=== PATIENT | female | born 1945 | race Caucasian/White ===

== ENCOUNTER 2020-04-10 21:33 | Inpatient (IN) ==
[2020-04-10] MEDS ORDERED: ONDANSETRON 4 MG/2 ML VIAL IV ONE (22:03)
[2020-04-10] MEDS ORDERED: ACETAMINOPHEN 500 MG TABLET PO STA (22:03)
[2020-04-10 22:20] LABS: Hematocrit 38.7 VOL% (35.7-47.0); Hemoglobin 12.5 GM/DL (12.0-16.0); Immature Granulocytes % 0.6 %; Immature Granulocytes Absolute 0.02 #; Lymphocytes # 0.5 10*3/uL (1.4-4.0); Lymphocytes % 16.1 % (21.3-54.2); Mean Corpuscular HGB Conc 32.3 GM/DL (32-36); Mean Corpuscular Volume 90.4 FL (87-102); Mean Platelet Volume 9.9 FL (9.6-12.0); Monocytes % 6.5 % (1.7-12.7); Neutrophils % 76.8 % (38.7-73.9); Platelet Count 153 T/CUMM (130-400); Red Blood Count 4.28 MC/CUMM (3.8-5.5); White Blood Count 3.4 T/CUMM (4-12)
[2020-04-10 22:38] LABS: ABG Base Excess 2.8 MMOL/L (-2.5-2.5); ABG HCO3 26.5 MMOL/L (20-26); ABG Oxygen Saturation 98.4 % (95-100); ABG PCO2 37.5 MM HG (35-48); ABG PH 7.467 (7.35-7.45); ABG PO2 129.8 MM HG (80-95); ABG TCO2 27.6 MMOL/L (23-27); Allen Test Positive
[2020-04-10 22:39] LABS: Albumin 3.6 G/DL (3.4-5.0); Bilirubin,Total 0.4 MG/DL (0.2-1.0); Calcium 8.5 MG/DL (8.5-10.1); Ferritin 285.6 ng/ml (8-252); Total Protein 7.1 G/DL (6.4-8.3)
[2020-04-10 23:57] LABS: Bilirubin,Urine Negative (Negative); Blood, Urine Moderate mg/dL (Negative); Glucose,Urine (UA) Negative (Negative); Hyaline Casts,Urine 4 /LPF (0-3); Ketones,Urine 5 mg/dL (Negative); Mucus,Urine Occasional /LPF (Occasional); Nitrite,Urine Negative (Negative); Protein,Urine 30 MG/DL; RBC,Urine 4 /HPF (0-4); Squamous Epithelial Cell,Urine Occasional /HPF (0-10); Urine Appearance CLEAR (Clear); Urine Color Yellow (Yellow); Urine Specific Gravity 1.023 (1.001-1.035); Urine Urobilinogen < 2.0 EU/DL (0.2-1.0); WBC,Urine 1 /HPF (0-6)
[2020-04-11] MEDS ORDERED: NICOTINE 21 MG/24 HR PATCH TRANSDERM PRN (00:37)
[2020-04-11] MEDS ORDERED: DEXTROSE 50% 25 GM/50 ML VIAL IV PRN (00:37)
[2020-04-11] MEDS ORDERED: CALCIUM CARBONATE CHEW 500 MG TABLET PO PRN (00:37)
[2020-04-11] MEDS ORDERED: GLUCAGON 1 MG VIAL IM PRN (00:37)
[2020-04-11] MEDS ORDERED: ALUMINUM/MAGNES/SIMETH MAX STR 30 ML UDCUP PO PRN (00:37)
[2020-04-11] MEDS ORDERED: hydrALAZINE 20 MG/1 ML VIAL IV PRN (00:37)
[2020-04-11] MEDS ORDERED: diphenhydrAMINE CAP 25 MG CAPSULE PO PRN (00:37)
[2020-04-11] MEDS ORDERED: guaiFENesin/DM ER 600-30 MG TABLET PO PRN (00:37)
[2020-04-11] MEDS ORDERED: DOCUSATE SODIUM 100 MG CAPSULE PO PRN (00:37)
[2020-04-11] MEDS ORDERED: SIMETHICONE CHEW 125 MG TABLET PO PRN (00:37)
[2020-04-11] MEDS ORDERED: AZITHROMYCIN INJ 500 MG in SODIUM CHLORIDE 0.9% 250 ML IV SCH (01:00)
[2020-04-11] MEDS: cefTRIAXone 1,000 MG in SYRINGE 1 EACH IV SCH (01:59)
[2020-04-11] MEDS: SODIUM CHLOR 0.9% KCL 40 MEQ 40 MEQ/1,000 ML BAG IV SCH ×2 (02:44→23:06)
[2020-04-11 04:06] LABS: Hematocrit 36.8 VOL% (35.7-47.0); Hemoglobin 11.8 GM/DL (12.0-16.0); Immature Granulocytes % 0.6 %; Immature Granulocytes Absolute 0.02 #; Lymphocytes # 0.9 10*3/uL (1.4-4.0); Lymphocytes % 28.4 % (21.3-54.2); Mean Corpuscular HGB Conc 32.1 GM/DL (32-36); Mean Corpuscular Volume 91.3 FL (87-102); Monocytes % 7.7 % (1.7-12.7); Neutrophils % 63.3 % (38.7-73.9); Platelet Count 144 T/CUMM (130-400); Red Blood Count 4.03 MC/CUMM (3.8-5.5); White Blood Count 3.1 T/CUMM (4-12)
[2020-04-11 04:34] LABS: Osmolality,Calculated 274.7 MOS/KG (273-304)
[2020-04-11] MEDS ORDERED: ALBUTEROL INHALER 18 GM INH PRN (05:11)
[2020-04-11] MEDS: ENOXAPARIN 40 MG/0.4 ML SYRINGE SUBCUT SCH (09:09)
[2020-04-11] MEDS: PANTOPRAZOLE 40 MG TABLET PO SCH (09:09)
[2020-04-11] MEDS: AZITHROMYCIN 250 MG TABLET PO SCH (09:09)
[2020-04-11] MEDS: ASPIRIN EC 81 MG TABLET PO SCH (09:09)
[2020-04-11] MEDS: ALBUTEROL INHALER 18 GM INH SCH ×5 (09:25→23:07)
[2020-04-11] MEDS: LISINOPRIL/HCTZ 20-12.5 MG TABLET PO SCH (09:25)
[2020-04-11] MEDS: ONDANSETRON 4 MG/2 ML VIAL IV PRN ×2 (09:53→18:38)
[2020-04-11] MEDS: traMADol 50 MG TABLET PO SCH ×2 (10:58→20:10)
[2020-04-11] MEDS: guaiFENesin/CODEINE 5 ML LIQUID PO PRN ×2 (12:02→20:16)
[2020-04-11] MEDS: ACETAMINOPHEN 325 MG TABLET PO PRN (20:10)
[2020-04-11] MEDS: SERTRALINE 100 MG TABLET PO SCH (20:10)
[2020-04-11] MEDS: clonazePAM 0.5 MG TABLET PO SCH (20:10)
[2020-04-11] MEDS: GABAPENTIN 300 MG CAPSULE PO SCH (20:10)
[2020-04-11] MEDS: ATORVASTATIN 20 MG TABLET PO SCH (23:06)
[2020-04-12] MEDS: cefTRIAXone 1,000 MG in SYRINGE 1 EACH IV SCH (02:04)
[2020-04-12] MEDS: ALBUTEROL INHALER 18 GM INH SCH ×6 (03:10→23:13)
[2020-04-12] MEDS: ACETAMINOPHEN 325 MG TABLET PO PRN (07:46)
[2020-04-12] MEDS: traMADol 50 MG TABLET PO SCH ×2 (08:32→20:55)
[2020-04-12] MEDS: AZITHROMYCIN 250 MG TABLET PO SCH (08:32)
[2020-04-12] MEDS: PANTOPRAZOLE 40 MG TABLET PO SCH (08:33)
[2020-04-12] MEDS: ENOXAPARIN 40 MG/0.4 ML SYRINGE SUBCUT SCH (08:33)
[2020-04-12] MEDS: LISINOPRIL/HCTZ 20-12.5 MG TABLET PO SCH (08:33)
[2020-04-12] MEDS: ASPIRIN EC 81 MG TABLET PO SCH (08:33)
[2020-04-12] MEDS: ONDANSETRON 4 MG/2 ML VIAL IV PRN (09:20)
[2020-04-12] MEDS: SODIUM CHLOR 0.9% KCL 40 MEQ 40 MEQ/1,000 ML BAG IV SCH (12:15)
[2020-04-12] MEDS: guaiFENesin/CODEINE 5 ML LIQUID PO PRN (16:57)
[2020-04-12] MEDS ORDERED: REMDESIVIR 200 MG in SODIUM CHLORIDE 0.9% 210 ML IV ONE (17:00)
[2020-04-12] MEDS: clonazePAM 0.5 MG TABLET PO SCH (20:54)
[2020-04-12] MEDS: ATORVASTATIN 20 MG TABLET PO SCH (20:54)
[2020-04-12] MEDS: GABAPENTIN 300 MG CAPSULE PO SCH (20:55)
[2020-04-12] MEDS: SERTRALINE 100 MG TABLET PO SCH (20:55)
[2020-04-13] MEDS: MORPHINE 4 MG/1 ML VIAL IV PRN ×3 (01:31→20:35)
[2020-04-13] MEDS: ALBUTEROL INHALER 18 GM INH SCH ×5 (02:14→20:02)
[2020-04-13] MEDS: ACETAMINOPHEN 325 MG TABLET PO PRN (04:34)
[2020-04-13] MEDS: SODIUM CHLOR 0.9% KCL 40 MEQ 40 MEQ/1,000 ML BAG IV SCH ×2 (05:35→20:02)
[2020-04-13 06:30] LABS: Hemoglobin 10.6 GM/DL (12.0-16.0); Immature Granulocytes % 0.5 %; Immature Granulocytes Absolute 0.02 #; Lymphocytes # 0.6 10*3/uL (1.4-4.0); Lymphocytes % 12.8 % (21.3-54.2); Mean Corpuscular HGB Conc 32.1 GM/DL (32-36); Mean Corpuscular Volume 90.7 FL (87-102); Mean Platelet Volume 9.8 FL (9.6-12.0); Monocytes % 6.2 % (1.7-12.7); Neutrophils % 80.5 % (38.7-73.9); Platelet Count 142 T/CUMM (130-400); Red Blood Count 3.64 MC/CUMM (3.8-5.5); Red Cell Distribution Width 14.3 % (9.3-17.3); White Blood Count 4.4 T/CUMM (4-12)
[2020-04-13 07:06] LABS: Calcium 8.1 MG/DL (8.5-10.1); Osmolality,Calculated 274.5 MOS/KG (273-304)
[2020-04-13] MEDS: AZITHROMYCIN 250 MG TABLET PO SCH (09:17)
[2020-04-13] MEDS: traMADol 50 MG TABLET PO SCH ×2 (09:17→22:33)
[2020-04-13] MEDS: LISINOPRIL/HCTZ 20-12.5 MG TABLET PO SCH (09:17)
[2020-04-13] MEDS: ASPIRIN EC 81 MG TABLET PO SCH (09:18)
[2020-04-13] MEDS: cefTRIAXone 1,000 MG in SYRINGE 1 EACH IV SCH (09:18)
[2020-04-13] MEDS: guaiFENesin/CODEINE 5 ML LIQUID PO PRN (09:19)
[2020-04-13] MEDS: ENOXAPARIN 30 MG/0.3 ML SYRINGE SUBCUT SCH ×2 (09:21→22:33)
[2020-04-13] MEDS: ONDANSETRON 4 MG/2 ML VIAL IV PRN (09:21)
[2020-04-13] MEDS: DEXAMETHASONE 4 MG/1 ML VIAL IV SCH (10:03)
[2020-04-13] MEDS: ZINC SULFATE 220 MG CAPSULE PO SCH (12:52)
[2020-04-13] MEDS: PROMETHAZINE 25 MG/1 ML VIAL IM PRN ×2 (13:06→20:25)
[2020-04-13] MEDS: REMDESIVIR 100 MG in SODIUM CHLORIDE 0.9% 230 ML IV SCH (17:58)
[2020-04-13] MEDS ORDERED: CLORAZEPATE 3.75 MG TABLET PO PRN (21:33)
[2020-04-13] MEDS: ATORVASTATIN 20 MG TABLET PO SCH (22:32)
[2020-04-13] MEDS: clonazePAM 0.5 MG TABLET PO SCH (22:32)
[2020-04-13] MEDS: GABAPENTIN 300 MG CAPSULE PO SCH (22:33)
[2020-04-13] MEDS: SERTRALINE 100 MG TABLET PO SCH (22:33)
[2020-04-14] MEDS ORDERED: ETOMIDATE 20 MG/10 ML VIAL IV ONE ×2 (01:40→02:28)
[2020-04-14] MEDS ORDERED: ROCURONIUM 100 MG/10 ML VIAL IV ONE ×2 (01:42→02:29)
[2020-04-14] MEDS ORDERED: EPINEPHrine 1 MG/ML VIAL ONE (02:44)
[2020-04-14] MEDS ORDERED: LIDOCAINE 1%/EPI INJ 20 ML VIAL ONE (02:45)
[2020-04-14] MEDS ORDERED: MORPHINE 4 MG/1 ML VIAL IV ONE (03:28)
[2020-04-14] MEDS: MIDAZOLAM 100 MG in SODIUM CHLORIDE 0.9% 80 ML IV PRN (03:28)
[2020-04-14] MEDS ORDERED: SODIUM CHLORIDE 0.9% 1,000 ML IV ONE (03:32)
[2020-04-14] MEDS ORDERED: NOREPINEPHRINE 4 MG/4 ML VIAL IV ONE (03:33)
[2020-04-14] MEDS: NOREPINEPHRINE 8 MG in SODIUM CHLORIDE 0.9% 242 ML IV PRN ×3 (03:38→20:56)
[2020-04-14] MEDS: ALBUTEROL INHALER 18 GM INH SCH ×2 (04:01→16:57)
[2020-04-14 04:16] LABS: ABG Base Excess -3.6 MMOL/L (-2.5-2.5); ABG HCO3 21.3 MMOL/L (20-26); ABG Oxygen Saturation 93.3 % (95-100); ABG PH 7.293 (7.35-7.45)
[2020-04-14 04:34] LABS: Basophils % 0.1 % (0.0-0.8); Hematocrit 35.4 VOL% (35.7-47.0); Hemoglobin 10.9 GM/DL (12.0-16.0); Immature Granulocytes % 1.3 %; Immature Granulocytes Absolute 0.22 #; Lymphocytes # 1.3 10*3/uL (1.4-4.0); Lymphocytes % 7.5 % (21.3-54.2); Mean Corpuscular HGB Conc 30.8 GM/DL (32-36); Mean Corpuscular Volume 94.9 FL (87-102); Mean Platelet Volume 9.8 FL (9.6-12.0); Monocytes % 4.7 % (1.7-12.7); Neutrophils % 86.4 % (38.7-73.9); Red Blood Count 3.73 MC/CUMM (3.8-5.5); Red Cell Distribution Width 14.4 % (9.3-17.3)
[2020-04-14 04:57] LABS: Platelet Count 294 T/CUMM (130-400); White Blood Count 17.3 T/CUMM (4-12)
[2020-04-14 05:12] LABS: INR 1.1; PT Patient Result 11.9 SECS (9.8-11.9)
[2020-04-14 05:24] LABS: Osmolality,Calculated 281.3 MOS/KG (273-304)
[2020-04-14 05:46] LABS: Ferritin 388.5 ng/ml (8-252)
[2020-04-14 05:54] LABS: Troponin I 0.197 NG/ML (0.00-0.045)
[2020-04-14] MEDS ORDERED: DOCUSATE SODIUM 100 MG/10 ML UDCUP NG PRN (07:30)
[2020-04-14] MEDS: SODIUM CHLOR 0.9% KCL 40 MEQ 40 MEQ/1,000 ML BAG IV SCH ×2 (07:44→23:27)
[2020-04-14] MEDS: cefTRIAXone 1,000 MG in SYRINGE 1 EACH IV SCH (08:16)
[2020-04-14] MEDS: DEXAMETHASONE 4 MG/1 ML VIAL IV SCH (08:17)
[2020-04-14] MEDS: ENOXAPARIN 30 MG/0.3 ML SYRINGE SUBCUT SCH ×2 (08:18→12:01)
[2020-04-14] MEDS: CHOLECALCIFEROL 5,000 UNIT TABLET PO SCH (08:19)
[2020-04-14] MEDS: traMADol 50 MG TABLET PO SCH (08:19)
[2020-04-14] MEDS: ASPIRIN CHEW 81 MG TABLET PO SCH (08:19)
[2020-04-14] MEDS: LISINOPRIL/HCTZ 20-12.5 MG TABLET PO SCH (08:19)
[2020-04-14] MEDS: ZINC SULFATE 220 MG CAPSULE PO SCH (08:19)
[2020-04-14] MEDS: AZITHROMYCIN 250 MG TABLET PO SCH (08:19)
[2020-04-14] MEDS: INSULIN REGULAR 100 UNIT/ML SUBCUT SCH ×2 (11:49→17:37)
[2020-04-14] MEDS: ACETAMINOPHEN 325 MG TABLET PO PRN (11:53)
[2020-04-14] MEDS: REMDESIVIR 100 MG in SODIUM CHLORIDE 0.9% 230 ML IV SCH (17:57)
[2020-04-14] MEDS: GABAPENTIN 300 MG CAPSULE PO SCH (20:28)
[2020-04-14] MEDS: ATORVASTATIN 20 MG TABLET PO SCH (20:28)
[2020-04-14] MEDS: PANTOPRAZOLE 40 MG VIAL IV SCH (20:29)
[2020-04-14] MEDS: SERTRALINE 100 MG TABLET PO SCH (20:29)
[2020-04-15] MEDS: INSULIN REGULAR 100 UNIT/ML SUBCUT SCH ×4 (00:05→17:43)
[2020-04-15] MEDS: ENOXAPARIN 30 MG/0.3 ML SYRINGE SUBCUT SCH ×2 (00:06→11:54)
[2020-04-15 03:39] LABS: Allen Test Positive; Pt O2 Delivery Device Ventilator
[2020-04-15 03:40] LABS: ABG Base Excess -2.3 MMOL/L (-2.5-2.5); ABG HCO3 22.5 MMOL/L (20-26); ABG Oxygen Saturation 99.5 % (95-100); ABG PCO2 40.8 MM HG (35-48); ABG PH 7.359 (7.35-7.45); ABG TCO2 20.9 MMOL/L (23-27)
[2020-04-15 05:14] LABS: Basophils % 0.2 % (0.0-0.8); Hematocrit 31.4 VOL% (35.7-47.0); Hemoglobin 9.9 GM/DL (12.0-16.0); Immature Granulocytes % 1.1 %; Immature Granulocytes Absolute 0.14 #; Lymphocytes # 0.7 10*3/uL (1.4-4.0); Lymphocytes % 5.7 % (21.3-54.2); Mean Corpuscular HGB Conc 31.5 GM/DL (32-36); Mean Corpuscular Volume 94.3 FL (87-102); Mean Platelet Volume 9.9 FL (9.6-12.0); Monocytes % 4.9 % (1.7-12.7); Neutrophils % 88.1 % (38.7-73.9); Platelet Count 270 T/CUMM (130-400); Red Blood Count 3.33 MC/CUMM (3.8-5.5); Red Cell Distribution Width 14.7 % (9.3-17.3)
[2020-04-15 05:28] LABS: INR 1.1; PT Patient Result 11.9 SECS (9.8-11.9)
[2020-04-15 06:10] LABS: Bilirubin,Total 0.44 MG/DL (0.2-1.0); Calcium 8.3 MG/DL (8.5-10.1)
[2020-04-15 06:11] LABS: Albumin 2.4 G/DL (3.4-5.0)
[2020-04-15 06:13] LABS: Osmolality,Calculated 289.1 MOS/KG (273-304)
[2020-04-15 06:16] LABS: Ferritin 388.1 ng/ml (8-252)
[2020-04-15 06:17] LABS: Troponin I 0.054 NG/ML (0.00-0.045)
[2020-04-15] MEDS: DEXAMETHASONE 4 MG/1 ML VIAL IV SCH (08:10)
[2020-04-15] MEDS: ZINC SULFATE 220 MG CAPSULE PO SCH (08:11)
[2020-04-15] MEDS: CHOLECALCIFEROL 5,000 UNIT TABLET PO SCH (08:11)
[2020-04-15] MEDS: AZITHROMYCIN 250 MG TABLET PO SCH (08:11)
[2020-04-15] MEDS: PANTOPRAZOLE 40 MG VIAL IV SCH ×2 (08:11→20:56)
[2020-04-15] MEDS: cefTRIAXone 1,000 MG in SYRINGE 1 EACH IV SCH (08:11)
[2020-04-15] MEDS: ASPIRIN CHEW 81 MG TABLET PO SCH (08:11)
[2020-04-15] MEDS: SODIUM CHLOR 0.9% KCL 40 MEQ 40 MEQ/1,000 ML BAG IV SCH (10:31)
[2020-04-15] MEDS: NOREPINEPHRINE 8 MG in SODIUM CHLORIDE 0.9% 242 ML IV PRN (11:11)
[2020-04-15] MEDS: ACETAMINOPHEN 325 MG TABLET PO PRN (11:55)
[2020-04-15] MEDS: REMDESIVIR 100 MG in SODIUM CHLORIDE 0.9% 230 ML IV SCH (17:52)
[2020-04-15] MEDS: MIDAZOLAM 100 MG in SODIUM CHLORIDE 0.9% 80 ML IV PRN (19:11)
[2020-04-15] MEDS: GABAPENTIN 300 MG CAPSULE PO SCH (20:53)
[2020-04-15] MEDS: ATORVASTATIN 20 MG TABLET PO SCH (20:53)
[2020-04-15] MEDS: SERTRALINE 100 MG TABLET PO SCH (21:45)
[2020-04-16] MEDS: INSULIN REGULAR 100 UNIT/ML SUBCUT SCH ×4 (00:20→18:20)
[2020-04-16] MEDS: ENOXAPARIN 30 MG/0.3 ML SYRINGE SUBCUT SCH ×2 (00:25→13:34)
[2020-04-16 04:37] LABS: ABG Base Excess 2.6 MMOL/L (-2.5-2.5); ABG HCO3 26.8 MMOL/L (20-26); ABG Oxygen Saturation 97.8 % (95-100); ABG PCO2 39.8 MM HG (35-48); ABG PH 7.446 (7.35-7.45); ABG PO2 106.4 MM HG (80-95)
[2020-04-16 05:15] LABS: Alanine Aminotransferase 15 U/L (13-56); Albumin 2.1 G/DL (3.4-5.0); Alkaline Phosphatase 77 U/L (45-117); Aspartate Amino Transferase 27 U/L (0-37); Blood Urea Nitrogen 17 MG/DL (7-18); Calcium 8.3 MG/DL (8.5-10.1); Estimated Glom Filtration Rate 111 ML/MIN; Ferritin 405.7 ng/ml (8-252); Glucose 161 MG/DL (74-106); Total Protein 5.6 G/DL (6.4-8.3); Troponin I < 0.015 NG/ML (0.00-0.045)
[2020-04-16] MEDS ORDERED: FUROSEMIDE 40 MG/4 ML VIAL IV ONE (08:45)
[2020-04-16 10:09] LABS: Basophils % 0.1 % (0.0-0.8); Hematocrit 28.4 VOL% (35.7-47.0); Hemoglobin 8.9 GM/DL (12.0-16.0); Immature Granulocytes Absolute 0.32 #; Lymphocytes # 0.7 10*3/uL (1.4-4.0); Lymphocytes % 4.4 % (21.3-54.2); Mean Corpuscular HGB Conc 31.3 GM/DL (32-36); Mean Corpuscular Volume 91.9 FL (87-102); Mean Platelet Volume 10.2 FL (9.6-12.0); Monocytes % 5.2 % (1.7-12.7); Neutrophils % 88.3 % (38.7-73.9); Platelet Count 300 T/CUMM (130-400); Red Blood Count 3.09 MC/CUMM (3.8-5.5); Red Cell Distribution Width 14.8 % (9.3-17.3); White Blood Count 15.9 T/CUMM (4-12)
[2020-04-16 10:33] LABS: INR 1.1; PT Patient Result 11.4 SECS (9.8-11.9)
[2020-04-16] MEDS: PANTOPRAZOLE 40 MG VIAL IV SCH ×2 (10:39→21:37)
[2020-04-16] MEDS: ASPIRIN CHEW 81 MG TABLET PO SCH (10:39)
[2020-04-16] MEDS: cefTRIAXone 1,000 MG in SYRINGE 1 EACH IV SCH (10:39)
[2020-04-16] MEDS: DEXAMETHASONE 4 MG/1 ML VIAL IV SCH (10:39)
[2020-04-16] MEDS: CHOLECALCIFEROL 5,000 UNIT TABLET PO SCH (10:40)
[2020-04-16] MEDS: ZINC SULFATE 220 MG CAPSULE PO SCH (10:40)
[2020-04-16 10:46] LABS: Hypochromasia 1+; Lymphocytes 5 % (20-55); Segmented Neutrophils 92 % (50-85); Total Cells Counted 100
[2020-04-16 10:47] LABS: Microcytosis 1+; Platelet Estimate Normal
[2020-04-16] MEDS ORDERED: SODIUM PHOSPHATE INJ 30 MMOL in SODIUM CHLORIDE 0.9% 250 ML IV ONE (15:51)
[2020-04-16] MEDS: REMDESIVIR 100 MG in SODIUM CHLORIDE 0.9% 230 ML IV SCH (18:39)
[2020-04-16] MEDS: SERTRALINE 100 MG TABLET PO SCH (21:37)
[2020-04-16] MEDS: ATORVASTATIN 20 MG TABLET PO SCH (21:37)
[2020-04-16] MEDS: GABAPENTIN 300 MG CAPSULE PO SCH (21:37)
[2020-04-16] MEDS: NOREPINEPHRINE 8 MG in SODIUM CHLORIDE 0.9% 242 ML IV PRN (21:40)
[2020-04-17] MEDS: ENOXAPARIN 30 MG/0.3 ML SYRINGE SUBCUT SCH ×2 (01:56→12:50)
[2020-04-17] MEDS: INSULIN REGULAR 100 UNIT/ML SUBCUT SCH ×5 (01:56→23:42)
[2020-04-17 03:55] LABS: Basophils % 0.1 % (0.0-0.8); Hematocrit 27.5 VOL% (35.7-47.0); Hemoglobin 8.6 GM/DL (12.0-16.0); Immature Granulocytes % 1.3 %; Immature Granulocytes Absolute 0.17 #; Lymphocytes # 0.5 10*3/uL (1.4-4.0); Mean Corpuscular HGB Conc 31.3 GM/DL (32-36); Mean Corpuscular Volume 92.9 FL (87-102); Mean Platelet Volume 10.2 FL (9.6-12.0); Monocytes % 5.2 % (1.7-12.7); Neutrophils % 89.4 % (38.7-73.9); Platelet Count 307 T/CUMM (130-400); Red Blood Count 2.96 MC/CUMM (3.8-5.5); Red Cell Distribution Width 14.7 % (9.3-17.3); White Blood Count 13.4 T/CUMM (4-12)
[2020-04-17 04:15] LABS: INR 1.1; PT Patient Result 11.3 SECS (9.8-11.9)
[2020-04-17 04:23] LABS: Alanine Aminotransferase 19 U/L (13-56); Albumin 2.1 G/DL (3.4-5.0); Alkaline Phosphatase 87 U/L (45-117); Aspartate Amino Transferase 29 U/L (0-37); Blood Urea Nitrogen 23 MG/DL (7-18); Calcium 8.1 MG/DL (8.5-10.1); Estimated Glom Filtration Rate 111 ML/MIN; Ferritin 468.6 ng/ml (8-252); Glucose 150 MG/DL (74-106); Osmolality,Calculated 292.8 MOS/KG (273-304); Total Protein 5.5 G/DL (6.4-8.3); Troponin I < 0.015 NG/ML (0.00-0.045)
[2020-04-17 04:28] LABS: ABG HCO3 30.8 MMOL/L (20-26); ABG Oxygen Saturation 99.4 % (95-100); ABG PCO2 43.7 MM HG (35-48); ABG PH 7.467 (7.35-7.45); ABG TCO2 28.1 MMOL/L (23-27); Allen Test Positive; Pt O2 Delivery Device Ventilator
[2020-04-17 05:05] LABS: Sedimentation Rate-Westergren 79 MM/HR (0-30)
[2020-04-17 06:37] LABS: Anisocytosis 1+; Band Neutrophils 1 % (0-10); Hypochromasia 2+; Lymphocytes 4 % (20-55); Macrocytosis 1+; Nucleated Red Blood Cells 1 (0-5); Platelet Estimate Normal; Segmented Neutrophils 92 % (50-85); Total Cells Counted 100
[2020-04-17] MEDS: ASPIRIN CHEW 81 MG TABLET PO SCH (10:05)
[2020-04-17] MEDS: CHOLECALCIFEROL 5,000 UNIT TABLET PO SCH (10:05)
[2020-04-17] MEDS: PANTOPRAZOLE 40 MG VIAL IV SCH ×2 (10:05→20:40)
[2020-04-17] MEDS: DEXAMETHASONE 4 MG/1 ML VIAL IV SCH (10:05)
[2020-04-17] MEDS: ZINC SULFATE 220 MG CAPSULE PO SCH (10:05)
[2020-04-17] MEDS: GABAPENTIN 300 MG CAPSULE PO SCH (20:40)
[2020-04-17] MEDS: ATORVASTATIN 20 MG TABLET PO SCH (20:40)
[2020-04-17] MEDS: SERTRALINE 100 MG TABLET PO SCH (20:40)
[2020-04-18] MEDS: ENOXAPARIN 30 MG/0.3 ML SYRINGE SUBCUT SCH ×2 (00:06→12:25)
[2020-04-18 04:53] LABS: Hematocrit 26.1 VOL% (35.7-47.0); Hemoglobin 8.3 GM/DL (12.0-16.0); Immature Granulocytes % 2.5 %; Immature Granulocytes Absolute 0.25 #; Lymphocytes # 0.6 10*3/uL (1.4-4.0); Lymphocytes % 5.4 % (21.3-54.2); Mean Corpuscular HGB Conc 31.8 GM/DL (32-36); Mean Corpuscular Volume 91.9 FL (87-102); Mean Platelet Volume 10.2 FL (9.6-12.0); Monocytes % 6.2 % (1.7-12.7); NRBC # 0.02 10*3/uL; Neutrophils % 85.9 % (38.7-73.9); Platelet Count 277 T/CUMM (130-400); Red Blood Count 2.84 MC/CUMM (3.8-5.5); Red Cell Distribution Width 14.6 % (9.3-17.3); White Blood Count 10.2 T/CUMM (4-12)
[2020-04-18 05:15] LABS: ABG Base Excess 6.8 MMOL/L (-2.5-2.5); ABG HCO3 30.6 MMOL/L (20-26); ABG Oxygen Saturation 96.8 % (95-100); ABG PCO2 43.5 MM HG (35-48); ABG PH 7.465 (7.35-7.45); ABG PO2 80.7 MM HG (80-95); Allen Test Positive; Pt O2 Delivery Device Ventilator
[2020-04-18 05:33] LABS: Alanine Aminotransferase 15 U/L (13-56); Albumin 2.1 G/DL (3.4-5.0); Alkaline Phosphatase 82 U/L (45-117); Aspartate Amino Transferase 27 U/L (0-37); Blood Urea Nitrogen 30 MG/DL (7-18); Calcium 8.1 MG/DL (8.5-10.1); Estimated Glom Filtration Rate 100 ML/MIN; Ferritin 460.7 ng/ml (8-252); Glucose 140 MG/DL (74-106); Osmolality,Calculated 295.7 MOS/KG (273-304); Total Protein 4.9 G/DL (6.4-8.3); Troponin I < 0.015 NG/ML (0.00-0.045)
[2020-04-18 05:48] LABS: INR 1.1; PT Patient Result 11.4 SECS (9.8-11.9)
[2020-04-18] MEDS: INSULIN REGULAR 100 UNIT/ML SUBCUT SCH ×4 (05:49→23:45)
[2020-04-18 06:24] LABS: Sedimentation Rate-Westergren 60 MM/HR (0-30)
[2020-04-18] MEDS: CHOLECALCIFEROL 5,000 UNIT TABLET PO SCH (08:57)
[2020-04-18] MEDS: PANTOPRAZOLE 40 MG VIAL IV SCH ×2 (08:57→21:00)
[2020-04-18] MEDS: DEXAMETHASONE 4 MG/1 ML VIAL IV SCH (08:57)
[2020-04-18] MEDS: ZINC SULFATE 220 MG CAPSULE PO SCH (08:58)
[2020-04-18] MEDS: ASPIRIN CHEW 81 MG TABLET PO SCH (08:58)
[2020-04-18] MEDS: SERTRALINE 100 MG TABLET PO SCH (21:00)
[2020-04-18] MEDS: GABAPENTIN 300 MG CAPSULE PO SCH (21:00)
[2020-04-18] MEDS: ATORVASTATIN 20 MG TABLET PO SCH (21:00)
[2020-04-19] MEDS: ENOXAPARIN 30 MG/0.3 ML SYRINGE SUBCUT SCH ×3 (00:41→23:54)
[2020-04-19 04:13] LABS: Basophils % 0.1 % (0.0-0.8); Eosinophils % 0.4 % (0.00-10.9); Hemoglobin 8.1 GM/DL (12.0-16.0); Immature Granulocytes % 5.2 %; Immature Granulocytes Absolute 0.53 #; Lymphocytes # 0.7 10*3/uL (1.4-4.0); Lymphocytes % 6.6 % (21.3-54.2); Mean Corpuscular HGB Conc 31.2 GM/DL (32-36); Mean Corpuscular Volume 94.2 FL (87-102); Mean Platelet Volume 9.9 FL (9.6-12.0); Monocytes % 5.7 % (1.7-12.7); NRBC # 0.02 10*3/uL; Platelet Count 263 T/CUMM (130-400); Red Blood Count 2.76 MC/CUMM (3.8-5.5); Red Cell Distribution Width 14.7 % (9.3-17.3); White Blood Count 10.1 T/CUMM (4-12)
[2020-04-19 04:32] LABS: INR 1.1; PT Patient Result 11.3 SECS (9.8-11.9)
[2020-04-19 04:35] LABS: Hypochromasia 1+; Lymphocytes 5 % (20-55); Microcytosis Slight; Ovalocytes Slight; Platelet Estimate Adequate; Segmented Neutrophils 88 % (50-85); Total Cells Counted 100
[2020-04-19 04:37] LABS: Alanine Aminotransferase 16 U/L (13-56); Albumin 1.9 G/DL (3.4-5.0); Alkaline Phosphatase 77 U/L (45-117); Aspartate Amino Transferase 19 U/L (0-37); Blood Urea Nitrogen 27 MG/DL (7-18); Estimated Glom Filtration Rate 111 ML/MIN; Ferritin 430.3 ng/ml (8-252); Glucose 123 MG/DL (74-106); Osmolality,Calculated 293.7 MOS/KG (273-304); Total Protein 5.1 G/DL (6.4-8.3); Troponin I < 0.015 NG/ML (0.00-0.045)
[2020-04-19 05:03] LABS: ABG Base Excess 7.1 MMOL/L (-2.5-2.5); ABG HCO3 30.9 MMOL/L (20-26); ABG PCO2 43.1 MM HG (35-48); ABG PH 7.472 (7.35-7.45); ABG PO2 75.4 MM HG (80-95); ABG TCO2 29.2 MMOL/L (23-27); Allen Test Positive; Pt O2 Delivery Device Ventilator
[2020-04-19] MEDS: INSULIN REGULAR 100 UNIT/ML SUBCUT SCH ×4 (05:03→23:54)
[2020-04-19 05:26] LABS: Sedimentation Rate-Westergren 57 MM/HR (0-30)
[2020-04-19] MEDS: MIDAZOLAM 100 MG in SODIUM CHLORIDE 0.9% 80 ML IV PRN ×2 (05:45→05:59)
[2020-04-19] MEDS: ASPIRIN CHEW 81 MG TABLET PO SCH (08:22)
[2020-04-19] MEDS: CHOLECALCIFEROL 5,000 UNIT TABLET PO SCH (08:22)
[2020-04-19] MEDS: DEXAMETHASONE 4 MG/1 ML VIAL IV SCH (08:22)
[2020-04-19] MEDS: ZINC SULFATE 220 MG CAPSULE PO SCH (08:22)
[2020-04-19] MEDS: PANTOPRAZOLE 40 MG VIAL IV SCH ×2 (08:22→20:15)
[2020-04-19] MEDS: ACETAMINOPHEN 325 MG TABLET PO PRN (09:54)
[2020-04-19] MEDS ORDERED: LORazepam 2 MG/1 ML VIAL IV ONE (11:29)
[2020-04-19] MEDS ORDERED: LORazepam 2 MG/1 ML VIAL ONE (11:32)
[2020-04-19] MEDS ORDERED: DIGOXIN 0.5 MG/2 ML AMP IV ONE ×2 (12:00→13:00)
[2020-04-19] MEDS ORDERED: clonazePAM 0.5 MG TABLET PO PRN (14:25)
[2020-04-19] MEDS: GABAPENTIN 300 MG CAPSULE PO SCH (20:15)
[2020-04-19] MEDS: ATORVASTATIN 20 MG TABLET PO SCH (20:15)
[2020-04-19] MEDS: SERTRALINE 100 MG TABLET PO SCH (20:15)
[2020-04-20 03:42] LABS: Basophils % 0.1 % (0.0-0.8); Eosinophils # 0.1 10*3/uL (0.0-0.87); Eosinophils % 0.7 % (0.00-10.9); Hematocrit 25.2 VOL% (35.7-47.0); Hemoglobin 7.8 GM/DL (12.0-16.0); Immature Granulocytes Absolute 0.73 #; Lymphocytes # 0.4 10*3/uL (1.4-4.0); Lymphocytes % 3.5 % (21.3-54.2); Mean Corpuscular Volume 95.5 FL (87-102); Mean Platelet Volume 10.4 FL (9.6-12.0); Monocytes % 5.2 % (1.7-12.7); NRBC # 0.02 10*3/uL; Neutrophils % 84.5 % (38.7-73.9); Platelet Count 253 T/CUMM (130-400); Red Blood Count 2.64 MC/CUMM (3.8-5.5); Red Cell Distribution Width 14.7 % (9.3-17.3); White Blood Count 12.2 T/CUMM (4-12)
[2020-04-20 04:07] LABS: INR 1.1; PT Patient Result 11.3 SECS (9.8-11.9)
[2020-04-20 04:09] LABS: Alanine Aminotransferase 17 U/L (13-56); Albumin 1.8 G/DL (3.4-5.0); Alkaline Phosphatase 85 U/L (45-117); Aspartate Amino Transferase 19 U/L (0-37); Blood Urea Nitrogen 28 MG/DL (7-18); Calcium 8.1 MG/DL (8.5-10.1); Estimated Glom Filtration Rate 110 ML/MIN; Ferritin 518.7 ng/ml (8-252); Glucose 133 MG/DL (74-106); Osmolality,Calculated 299.4 MOS/KG (273-304); Total Protein 5.2 G/DL (6.4-8.3); Troponin I < 0.015 NG/ML (0.00-0.045)
[2020-04-20 04:24] LABS: ABG Base Excess 6.1 MMOL/L (-2.5-2.5); ABG HCO3 30.1 MMOL/L (20-26); ABG Oxygen Saturation 94.2 % (95-100); ABG PCO2 41.5 MM HG (35-48); ABG PH 7.479 (7.35-7.45); ABG TCO2 31.4 MMOL/L (23-27); Allen Test Positive; Pt O2 Delivery Device Ventilator
[2020-04-20 04:57] LABS: Band Neutrophils 4 % (0-10); Hypochromasia 1+; Lymphocytes 3 % (20-55); Microcytosis Slight; Platelet Estimate Adequate; Segmented Neutrophils 88 % (50-85); Total Cells Counted 100
[2020-04-20] MEDS: INSULIN REGULAR 100 UNIT/ML SUBCUT SCH ×3 (05:06→18:02)
[2020-04-20 05:13] LABS: Sedimentation Rate-Westergren 83 MM/HR (0-30)
[2020-04-20] MEDS: DEXAMETHASONE 4 MG/1 ML VIAL IV SCH (08:12)
[2020-04-20] MEDS: PANTOPRAZOLE 40 MG VIAL IV SCH ×2 (08:12→20:20)
[2020-04-20] MEDS: ASPIRIN CHEW 81 MG TABLET PO SCH (08:12)
[2020-04-20] MEDS: ZINC SULFATE 220 MG CAPSULE PO SCH (08:12)
[2020-04-20] MEDS: CHOLECALCIFEROL 5,000 UNIT TABLET PO SCH (08:12)
[2020-04-20] MEDS: POTASSIUM CHLORIDE 20 MEQ/15 ML UDCUP PER TUBE PRN ×3 (09:00→18:02)
[2020-04-20] MEDS: ACETAMINOPHEN 325 MG TABLET PO PRN (09:30)
[2020-04-20] MEDS ORDERED: DIGOXIN 0.25 MG TABLET PO ONE (10:37)
[2020-04-20] MEDS: PIPERACILLIN/TAZOBACTAM 3,375 MG in SODIUM CHLORIDE 0.9% 100 ML IV SCH ×2 (10:52→18:20)
[2020-04-20] MEDS: ENOXAPARIN 30 MG/0.3 ML SYRINGE SUBCUT SCH (12:12)
[2020-04-20] MEDS: ATORVASTATIN 20 MG TABLET PO SCH (20:20)
[2020-04-20] MEDS: GABAPENTIN 300 MG CAPSULE PO SCH (20:20)
[2020-04-20] MEDS: SERTRALINE 100 MG TABLET PO SCH (20:20)
[2020-04-21] MEDS: INSULIN REGULAR 100 UNIT/ML SUBCUT SCH ×4 (00:48→17:59)
[2020-04-21] MEDS: ENOXAPARIN 30 MG/0.3 ML SYRINGE SUBCUT SCH ×2 (00:49→11:58)
[2020-04-21] MEDS: PIPERACILLIN/TAZOBACTAM 3,375 MG in SODIUM CHLORIDE 0.9% 100 ML IV SCH ×3 (00:49→17:58)
[2020-04-21 02:57] LABS: ABG Base Excess 6.3 MMOL/L (-2.5-2.5); ABG HCO3 30.2 MMOL/L (20-26); ABG Oxygen Saturation 98.7 % (95-100); ABG PCO2 45.6 MM HG (35-48); ABG PH 7.442 (7.35-7.45); Allen Test Positive; Pt O2 Delivery Device Ventilator
[2020-04-21 04:54] LABS: Basophils % 0.1 % (0.0-0.8); Eosinophils # 0.1 10*3/uL (0.0-0.87); Eosinophils % 0.4 % (0.00-10.9); Hematocrit 25.6 VOL% (35.7-47.0); Hemoglobin 7.9 GM/DL (12.0-16.0); Immature Granulocytes % 5.5 %; Immature Granulocytes Absolute 0.75 #; Lymphocytes # 0.5 10*3/uL (1.4-4.0); Lymphocytes % 3.9 % (21.3-54.2); Mean Corpuscular HGB Conc 30.9 GM/DL (32-36); Mean Corpuscular Volume 94.5 FL (87-102); Mean Platelet Volume 10.4 FL (9.6-12.0); Neutrophils % 85.1 % (38.7-73.9); Platelet Count 308 T/CUMM (130-400); Red Blood Count 2.71 MC/CUMM (3.8-5.5); Red Cell Distribution Width 14.8 % (9.3-17.3); White Blood Count 13.6 T/CUMM (4-12)
[2020-04-21 05:04] LABS: PT Patient Result 11.1 SECS (9.8-11.9)
[2020-04-21 05:16] LABS: Alanine Aminotransferase 23 U/L (13-56); Albumin 1.7 G/DL (3.4-5.0); Alkaline Phosphatase 78 U/L (45-117); Aspartate Amino Transferase 19 U/L (0-37); Blood Urea Nitrogen 26 MG/DL (7-18); Calcium 8.3 MG/DL (8.5-10.1); Estimated Glom Filtration Rate 111 ML/MIN; Ferritin 576.6 ng/ml (8-252); Glucose 124 MG/DL (74-106); Osmolality,Calculated 284.4 MOS/KG (273-304); Total Protein 5.6 G/DL (6.4-8.3); Troponin I < 0.015 NG/ML (0.00-0.045)
[2020-04-21 05:18] LABS: Band Neutrophils 1 % (0-10); Lymphocytes 2 % (20-55); Nucleated Red Blood Cells 1 (0-5); Platelet Estimate Adequate; Segmented Neutrophils 94 % (50-85); Total Cells Counted 100
[2020-04-21 05:19] LABS: Hypochromasia 2+; Microcytosis Slight
[2020-04-21 06:51] LABS: Sedimentation Rate-Westergren 108 MM/HR (0-30)
[2020-04-21] MEDS: PANTOPRAZOLE 40 MG VIAL IV SCH ×2 (08:03→20:50)
[2020-04-21] MEDS: CHOLECALCIFEROL 5,000 UNIT TABLET PO SCH (08:05)
[2020-04-21] MEDS: DEXAMETHASONE 4 MG/1 ML VIAL IV SCH (08:05)
[2020-04-21] MEDS: ZINC SULFATE 220 MG CAPSULE PO SCH (08:05)
[2020-04-21] MEDS: ASPIRIN CHEW 81 MG TABLET PO SCH (08:05)
[2020-04-21] MEDS: ACETAMINOPHEN 325 MG TABLET PO PRN (12:00)
[2020-04-21] MEDS ORDERED: SODIUM CHLORIDE 0.9% 1,000 ML IV PRN (12:36)
[2020-04-21] MEDS: DIGOXIN 0.25 MG TABLET PO SCH (13:41)
[2020-04-21 15:40] LABS: Bilirubin,Urine Negative (Negative); Blood, Urine Small mg/dL (Negative); Calcium Oxalate Crystals,Urine Occasional /HPF (Few); Glucose,Urine (UA) Negative (Negative); Ketones,Urine Negative (Negative); Mucus,Urine Occasional /LPF (Occasional); Nitrite,Urine Negative (Negative); Protein,Urine 30 MG/DL; RBC,Urine 7 /HPF (0-4); Urine Appearance Slightly Hazy (Clear); Urine Color Yellow (Yellow); Urine Specific Gravity 1.025 (1.001-1.035); Urine Urobilinogen < 2.0 EU/DL (0.2-1.0); WBC,Urine 2 /HPF (0-6)
[2020-04-21] MEDS: GABAPENTIN 300 MG CAPSULE PO SCH (20:50)
[2020-04-21] MEDS: ATORVASTATIN 20 MG TABLET PO SCH (20:50)
[2020-04-21] MEDS: SERTRALINE 100 MG TABLET PO SCH (20:55)
[2020-04-22] MEDS: INSULIN REGULAR 100 UNIT/ML SUBCUT SCH ×4 (00:04→18:15)
[2020-04-22] MEDS: ENOXAPARIN 30 MG/0.3 ML SYRINGE SUBCUT SCH ×2 (00:20→12:25)
[2020-04-22] MEDS: PIPERACILLIN/TAZOBACTAM 3,375 MG in SODIUM CHLORIDE 0.9% 100 ML IV SCH ×3 (02:22→18:15)
[2020-04-22 04:48] LABS: Basophils % 0.2 % (0.0-0.8); Eosinophils % 0.1 % (0.00-10.9); Hematocrit 31.1 VOL% (35.7-47.0); Hemoglobin 10.3 GM/DL (12.0-16.0); Immature Granulocytes % 2.8 %; Immature Granulocytes Absolute 0.34 #; Lymphocytes # 0.6 10*3/uL (1.4-4.0); Lymphocytes % 4.8 % (21.3-54.2); Mean Corpuscular HGB Conc 33.1 GM/DL (32-36); Mean Corpuscular Volume 89.1 FL (87-102); Mean Platelet Volume 10.5 FL (9.6-12.0); Monocytes % 5.4 % (1.7-12.7); Neutrophils % 86.7 % (38.7-73.9); Platelet Count 254 T/CUMM (130-400); Red Blood Count 3.49 MC/CUMM (3.8-5.5); Red Cell Distribution Width 15.5 % (9.3-17.3)
[2020-04-22 04:58] LABS: ABG Base Excess 4.8 MMOL/L (-2.5-2.5); ABG HCO3 28.7 MMOL/L (20-26); ABG Oxygen Saturation 97.6 % (95-100); ABG PCO2 42.6 MM HG (35-48); ABG PH 7.447 (7.35-7.45); ABG PO2 90.1 MM HG (80-95); ABG TCO2 25.3 MMOL/L (23-27); Allen Test Positive; Pt O2 Delivery Device Ventilator
[2020-04-22 05:03] LABS: Alanine Aminotransferase 29 U/L (13-56); Albumin 1.6 G/DL (3.4-5.0); Alkaline Phosphatase 85 U/L (45-117); Aspartate Amino Transferase 24 U/L (0-37); Blood Urea Nitrogen 20 MG/DL (7-18); Estimated Glom Filtration Rate 127 ML/MIN; Ferritin 681.6 ng/ml (8-252); Glucose 118 MG/DL (74-106); Osmolality,Calculated 280.5 MOS/KG (273-304); Total Protein 5.3 G/DL (6.4-8.3); Troponin I < 0.015 NG/ML (0.00-0.045)
[2020-04-22 05:05] LABS: INR 1.1; PT Patient Result 11.3 SECS (9.8-11.9)
[2020-04-22 05:15] LABS: Band Neutrophils 2 % (0-10); Lymphocytes 7 % (20-55); Microcytosis 1+; Platelet Estimate Adequate; Segmented Neutrophils 83 % (50-85); Total Cells Counted 100
[2020-04-22 07:17] LABS: Sedimentation Rate-Westergren 60 MM/HR (0-30)
[2020-04-22] MEDS: PANTOPRAZOLE 40 MG VIAL IV SCH ×2 (09:06→21:15)
[2020-04-22] MEDS: ASPIRIN CHEW 81 MG TABLET PO SCH (09:07)
[2020-04-22] MEDS: CHOLECALCIFEROL 5,000 UNIT TABLET PO SCH (09:07)
[2020-04-22] MEDS: DEXAMETHASONE 4 MG/1 ML VIAL IV SCH (09:07)
[2020-04-22] MEDS: ZINC SULFATE 220 MG CAPSULE PO SCH (09:07)
[2020-04-22] MEDS: DIGOXIN 0.25 MG TABLET PO SCH (12:25)
[2020-04-22] MEDS: GABAPENTIN 300 MG CAPSULE PO SCH (21:15)
[2020-04-22] MEDS: ATORVASTATIN 20 MG TABLET PO SCH (21:15)
[2020-04-22] MEDS: SERTRALINE 100 MG TABLET PO SCH (21:15)
[2020-04-23] MEDS: INSULIN REGULAR 100 UNIT/ML SUBCUT SCH ×4 (00:32→18:35)
[2020-04-23] MEDS: ENOXAPARIN 30 MG/0.3 ML SYRINGE SUBCUT SCH ×2 (01:10→12:45)
[2020-04-23] MEDS: PIPERACILLIN/TAZOBACTAM 3,375 MG in SODIUM CHLORIDE 0.9% 100 ML IV SCH ×3 (01:20→18:45)
[2020-04-23 04:26] LABS: Basophils % 0.1 % (0.0-0.8); Eosinophils % 0.3 % (0.00-10.9); Hematocrit 31.4 VOL% (35.7-47.0); Hemoglobin 9.8 GM/DL (12.0-16.0); Immature Granulocytes % 4.2 %; Immature Granulocytes Absolute 0.57 #; Lymphocytes % 7.4 % (21.3-54.2); Mean Corpuscular HGB Conc 31.2 GM/DL (32-36); Mean Corpuscular Volume 91.5 FL (87-102); Mean Platelet Volume 10.2 FL (9.6-12.0); Monocytes % 5.9 % (1.7-12.7); Neutrophils % 82.1 % (38.7-73.9); Platelet Count 267 T/CUMM (130-400); Red Blood Count 3.43 MC/CUMM (3.8-5.5); Red Cell Distribution Width 15.1 % (9.3-17.3); White Blood Count 13.7 T/CUMM (4-12)
[2020-04-23 04:50] LABS: ABG Base Excess 4.4 MMOL/L (-2.5-2.5); ABG HCO3 28.4 MMOL/L (20-26); ABG Oxygen Saturation 97.5 % (95-100); ABG PCO2 39.8 MM HG (35-48); ABG PH 7.463 (7.35-7.45); ABG PO2 89.2 MM HG (80-95); ABG TCO2 25.8 MMOL/L (23-27); Allen Test Positive; Pt O2 Delivery Device Ventilator
[2020-04-23 04:54] LABS: Lymphocytes 9 % (20-55); Segmented Neutrophils 85 % (50-85); Total Cells Counted 100
[2020-04-23 04:55] LABS: Hypochromasia 1+; Microcytosis 1+; Platelet Estimate Adequate
[2020-04-23 04:59] LABS: Alanine Aminotransferase 33 U/L (13-56); Albumin 1.6 G/DL (3.4-5.0); Alkaline Phosphatase 74 U/L (45-117); Aspartate Amino Transferase 27 U/L (0-37); Blood Urea Nitrogen 15 MG/DL (7-18); Estimated Glom Filtration Rate 110 ML/MIN; Ferritin 729.9 ng/ml (8-252); Glucose 91 MG/DL (74-106); Osmolality,Calculated 275.7 MOS/KG (273-304); Troponin I < 0.015 NG/ML (0.00-0.045)
[2020-04-23 05:04] LABS: PT Patient Result 10.9 SECS (9.8-11.9)
[2020-04-23 05:32] LABS: Sedimentation Rate-Westergren 52 MM/HR (0-30)
[2020-04-23] MEDS ORDERED: POTASSIUM CHLORIDE 20 MEQ TABLET PO ONE (07:29)
[2020-04-23] MEDS: ASPIRIN CHEW 81 MG TABLET PO SCH (10:00)
[2020-04-23] MEDS: DEXAMETHASONE 4 MG/1 ML VIAL IV SCH (10:00)
[2020-04-23] MEDS: CHOLECALCIFEROL 5,000 UNIT TABLET PO SCH (10:00)
[2020-04-23] MEDS: ZINC SULFATE 220 MG CAPSULE PO SCH (10:00)
[2020-04-23] MEDS: PANTOPRAZOLE 40 MG VIAL IV SCH ×2 (10:08→20:10)
[2020-04-23] MEDS: DIGOXIN 0.25 MG TABLET PO SCH (12:30)
[2020-04-23] MEDS: ZINC OXIDE PASTE 113 GM TUBE TOP SCH (20:10)
[2020-04-23] MEDS: SERTRALINE 100 MG TABLET PO SCH (20:10)
[2020-04-23] MEDS: ATORVASTATIN 20 MG TABLET PO SCH (20:10)
[2020-04-23] MEDS: GABAPENTIN 300 MG CAPSULE PO SCH (20:10)
[2020-04-23] MEDS: MIDAZOLAM 100 MG in SODIUM CHLORIDE 0.9% 80 ML IV PRN (23:00)
[2020-04-24] MEDS: ENOXAPARIN 30 MG/0.3 ML SYRINGE SUBCUT SCH ×2 (00:12→13:00)
[2020-04-24] MEDS: PIPERACILLIN/TAZOBACTAM 3,375 MG in SODIUM CHLORIDE 0.9% 100 ML IV SCH ×3 (03:51→18:42)
[2020-04-24 04:52] LABS: Basophils % 0.1 % (0.0-0.8); Eosinophils # 0.1 10*3/uL (0.0-0.87); Eosinophils % 0.4 % (0.00-10.9); Hematocrit 30.6 VOL% (35.7-47.0); Hemoglobin 9.7 GM/DL (12.0-16.0); Immature Granulocytes % 2.9 %; Lymphocytes % 7.4 % (21.3-54.2); Mean Corpuscular HGB Conc 31.7 GM/DL (32-36); Mean Corpuscular Volume 91.3 FL (87-102); Monocytes % 4.8 % (1.7-12.7); Neutrophils % 84.4 % (38.7-73.9); Platelet Count 275 T/CUMM (130-400); Red Blood Count 3.35 MC/CUMM (3.8-5.5); White Blood Count 13.9 T/CUMM (4-12)
[2020-04-24 04:55] LABS: ABG HCO3 27.9 MMOL/L (20-26); ABG Oxygen Saturation 95.7 % (95-100); ABG PCO2 38.8 MM HG (35-48); ABG PH 7.465 (7.35-7.45); ABG TCO2 24.7 MMOL/L (23-27); Allen Test Positive; Pt O2 Delivery Device Ventilator
[2020-04-24 05:09] LABS: Calcium 8.2 MG/DL (8.5-10.1); Osmolality,Calculated 282.3 MOS/KG (273-304)
[2020-04-24] MEDS: INSULIN REGULAR 100 UNIT/ML SUBCUT SCH ×4 (06:00→17:42)
[2020-04-24] MEDS: PANTOPRAZOLE 40 MG VIAL IV SCH ×2 (08:28→21:27)
[2020-04-24] MEDS: ASPIRIN CHEW 81 MG TABLET PO SCH (08:29)
[2020-04-24] MEDS: POTASSIUM CHLORIDE 20 MEQ/15 ML UDCUP PER TUBE PRN ×2 (08:29→16:30)
[2020-04-24] MEDS: DEXAMETHASONE 4 MG/1 ML VIAL IV SCH (08:29)
[2020-04-24] MEDS: ZINC SULFATE 220 MG CAPSULE PO SCH (08:29)
[2020-04-24] MEDS: ZINC OXIDE PASTE 113 GM TUBE TOP SCH ×2 (08:29→21:10)
[2020-04-24] MEDS: CHOLECALCIFEROL 5,000 UNIT TABLET PO SCH (08:29)
[2020-04-24] MEDS: MIDAZOLAM 100 MG in SODIUM CHLORIDE 0.9% 80 ML IV PRN (11:29)
[2020-04-24 11:44] LABS: ABG Base Excess 1.2 MMOL/L (-2.5-2.5); ABG HCO3 25.4 MMOL/L (20-26); ABG Oxygen Saturation 98.3 % (95-100); ABG PCO2 38.9 MM HG (35-48); ABG PH 7.424 (7.35-7.45); ABG TCO2 23.2 MMOL/L (23-27); Pt O2 Delivery Device Ventilator
[2020-04-24] MEDS ORDERED: FLUCONAZOLE INJ 400 MG in PREMIX 1 EACH IV SCH (12:00)
[2020-04-24] MEDS: LEVOFLOXACIN INJ 750 MG in PREMIX 1 EACH IV SCH (12:14)
[2020-04-24] MEDS: DIGOXIN 0.25 MG TABLET PO SCH (13:30)
[2020-04-24] MEDS: FLUCONAZOLE INJ 400 MG in PREMIX 1 EACH IV SCH (15:16)
[2020-04-24] MEDS: ATORVASTATIN 20 MG TABLET PO SCH (21:10)
[2020-04-24] MEDS: SERTRALINE 100 MG TABLET PO SCH (21:10)
[2020-04-24] MEDS: GABAPENTIN 300 MG CAPSULE PO SCH (21:10)
[2020-04-25] MEDS: INSULIN REGULAR 100 UNIT/ML SUBCUT SCH ×4 (00:59→18:09)
[2020-04-25] MEDS: ENOXAPARIN 30 MG/0.3 ML SYRINGE SUBCUT SCH ×2 (00:59→12:39)
[2020-04-25] MEDS: PIPERACILLIN/TAZOBACTAM 3,375 MG in SODIUM CHLORIDE 0.9% 100 ML IV SCH ×3 (02:30→17:20)
[2020-04-25 04:02] LABS: ABG Base Excess 2.7 MMOL/L (-2.5-2.5); ABG HCO3 26.4 MMOL/L (20-26); ABG Oxygen Saturation 98.2 % (95-100); ABG PCO2 37.5 MM HG (35-48); ABG PH 7.466 (7.35-7.45); ABG PO2 119.8 MM HG (80-95); ABG TCO2 27.6 MMOL/L (23-27); Allen Test Positive; Pt O2 Delivery Device Ventilator
[2020-04-25 04:31] LABS: Basophils % 0.1 % (0.0-0.8); Eosinophils % 0.1 % (0.00-10.9); Hematocrit 30.2 VOL% (35.7-47.0); Hemoglobin 9.6 GM/DL (12.0-16.0); Immature Granulocytes % 2.8 %; Immature Granulocytes Absolute 0.39 #; Lymphocytes # 0.8 10*3/uL (1.4-4.0); Lymphocytes % 5.7 % (21.3-54.2); Mean Corpuscular HGB Conc 31.8 GM/DL (32-36); Mean Corpuscular Volume 91.8 FL (87-102); Mean Platelet Volume 10.2 FL (9.6-12.0); Monocytes % 4.5 % (1.7-12.7); Neutrophils % 86.8 % (38.7-73.9); Platelet Count 283 T/CUMM (130-400); Red Blood Count 3.29 MC/CUMM (3.8-5.5); Red Cell Distribution Width 14.8 % (9.3-17.3); White Blood Count 13.7 T/CUMM (4-12)
[2020-04-25] MEDS: MIDAZOLAM 100 MG in SODIUM CHLORIDE 0.9% 80 ML IV PRN (04:55)
[2020-04-25 06:28] LABS: Bilirubin,Total 0.5 MG/DL (0.2-1.0); Calcium 8.2 MG/DL (8.5-10.1); Total Protein 5.1 G/DL (6.4-8.3)
[2020-04-25 06:29] LABS: Albumin 1.6 G/DL (3.4-5.0); Osmolality,Calculated 276.7 MOS/KG (273-304)
[2020-04-25 06:30] LABS: Ferritin 794.4 ng/ml (8-252)
[2020-04-25 06:48] LABS: Sedimentation Rate-Westergren 76 MM/HR (0-30)
[2020-04-25] MEDS: CHOLECALCIFEROL 5,000 UNIT TABLET PO SCH (08:01)
[2020-04-25] MEDS: ASPIRIN CHEW 81 MG TABLET PO SCH (08:01)
[2020-04-25] MEDS: PANTOPRAZOLE 40 MG VIAL IV SCH ×2 (08:01→21:30)
[2020-04-25] MEDS: ZINC OXIDE PASTE 113 GM TUBE TOP SCH ×2 (08:01→21:15)
[2020-04-25] MEDS: ZINC SULFATE 220 MG CAPSULE PO SCH (08:01)
[2020-04-25] MEDS: DEXAMETHASONE 4 MG/1 ML VIAL IV SCH (08:01)
[2020-04-25] MEDS: LEVOFLOXACIN INJ 750 MG in PREMIX 1 EACH IV SCH (12:41)
[2020-04-25] MEDS: FLUCONAZOLE INJ 400 MG in PREMIX 1 EACH IV SCH (15:14)
[2020-04-25] MEDS: ATORVASTATIN 20 MG TABLET PO SCH (21:30)
[2020-04-25] MEDS: GABAPENTIN 300 MG CAPSULE PO SCH (21:30)
[2020-04-25] MEDS: SERTRALINE 100 MG TABLET PO SCH (21:31)
[2020-04-26] MEDS: INSULIN REGULAR 100 UNIT/ML SUBCUT SCH ×4 (01:35→17:38)
[2020-04-26] MEDS: ENOXAPARIN 30 MG/0.3 ML SYRINGE SUBCUT SCH ×2 (01:35→11:26)
[2020-04-26] MEDS: PIPERACILLIN/TAZOBACTAM 3,375 MG in SODIUM CHLORIDE 0.9% 100 ML IV SCH ×3 (02:02→17:50)
[2020-04-26] MEDS: MIDAZOLAM 100 MG in SODIUM CHLORIDE 0.9% 80 ML IV PRN (03:16)
[2020-04-26 04:19] LABS: Basophils % 0.2 % (0.0-0.8); Eosinophils % 0.1 % (0.00-10.9); Immature Granulocytes % 2.5 %; Immature Granulocytes Absolute 0.32 #; Lymphocytes # 0.8 10*3/uL (1.4-4.0); Mean Corpuscular HGB Conc 32.3 GM/DL (32-36); Mean Corpuscular Volume 89.3 FL (87-102); Mean Platelet Volume 10.2 FL (9.6-12.0); Monocytes % 5.3 % (1.7-12.7); Neutrophils % 85.9 % (38.7-73.9); Platelet Count 346 T/CUMM (130-400); Red Blood Count 3.47 MC/CUMM (3.8-5.5); White Blood Count 12.7 T/CUMM (4-12)
[2020-04-26 04:32] LABS: ABG Base Excess 3.5 MMOL/L (-2.5-2.5); ABG HCO3 26.8 MMOL/L (20-26); ABG Oxygen Saturation 97.6 % (95-100); ABG PCO2 35.7 MM HG (35-48); ABG PH 7.493 (7.35-7.45); ABG PO2 101.5 MM HG (80-95); ABG TCO2 27.9 MMOL/L (23-27); Allen Test Positive; Pt O2 Delivery Device Ventilator
[2020-04-26 04:42] LABS: Albumin 1.9 G/DL (3.4-5.0); Bilirubin,Total 0.8 MG/DL (0.2-1.0); Calcium 8.6 MG/DL (8.5-10.1); Ferritin 635.4 ng/ml (8-252); Osmolality,Calculated 280.4 MOS/KG (273-304); Total Protein 5.5 G/DL (6.4-8.3)
[2020-04-26 07:00] LABS: Sedimentation Rate-Westergren 66 MM/HR (0-30)
[2020-04-26] MEDS: PANTOPRAZOLE 40 MG VIAL IV SCH ×2 (08:03→20:10)
[2020-04-26] MEDS: ZINC OXIDE PASTE 113 GM TUBE TOP SCH ×2 (08:03→21:50)
[2020-04-26] MEDS: DEXAMETHASONE 4 MG/1 ML VIAL IV SCH (08:03)
[2020-04-26] MEDS: ZINC SULFATE 220 MG CAPSULE PO SCH (08:03)
[2020-04-26] MEDS: CHOLECALCIFEROL 5,000 UNIT TABLET PO SCH (08:03)
[2020-04-26] MEDS: ASPIRIN CHEW 81 MG TABLET PO SCH (08:03)
[2020-04-26] MEDS: LEVOFLOXACIN INJ 750 MG in PREMIX 1 EACH IV SCH (12:35)
[2020-04-26] MEDS: FLUCONAZOLE INJ 400 MG in PREMIX 1 EACH IV SCH (14:04)
[2020-04-26] MEDS: SERTRALINE 100 MG TABLET PO SCH (20:11)
[2020-04-26] MEDS: ATORVASTATIN 20 MG TABLET PO SCH (20:11)
[2020-04-26] MEDS: GABAPENTIN 300 MG CAPSULE PO SCH (20:11)
[2020-04-27] MEDS: ENOXAPARIN 30 MG/0.3 ML SYRINGE SUBCUT SCH ×2 (00:17→12:40)
[2020-04-27] MEDS: MIDAZOLAM 100 MG in SODIUM CHLORIDE 0.9% 80 ML IV PRN ×2 (00:30→20:13)
[2020-04-27] MEDS: INSULIN REGULAR 100 UNIT/ML SUBCUT SCH ×4 (01:20→17:10)
[2020-04-27] MEDS: PIPERACILLIN/TAZOBACTAM 3,375 MG in SODIUM CHLORIDE 0.9% 100 ML IV SCH ×2 (01:51→09:00)
[2020-04-27 04:16] LABS: Calcium 8.1 MG/DL (8.5-10.1); Osmolality,Calculated 281.5 MOS/KG (273-304)
[2020-04-27 04:20] LABS: Bilirubin,Total 0.6 MG/DL (0.2-1.0); Calcium 8.7 MG/DL (8.5-10.1); Osmolality,Calculated 277.8 MOS/KG (273-304); Total Protein 5.5 G/DL (6.4-8.3)
[2020-04-27 04:21] LABS: Basophils % 0.2 % (0.0-0.8); Eosinophils % 0.1 % (0.00-10.9); Hematocrit 31.2 VOL% (35.7-47.0); Hemoglobin 9.7 GM/DL (12.0-16.0); Immature Granulocytes % 2.4 %; Immature Granulocytes Absolute 0.31 #; Lymphocytes # 0.9 10*3/uL (1.4-4.0); Lymphocytes % 6.8 % (21.3-54.2); Mean Corpuscular HGB Conc 31.1 GM/DL (32-36); Mean Corpuscular Volume 92.9 FL (87-102); Monocytes % 7.3 % (1.7-12.7); Neutrophils % 83.2 % (38.7-73.9); Platelet Count 390 T/CUMM (130-400); Red Blood Count 3.36 MC/CUMM (3.8-5.5); Red Cell Distribution Width 15.2 % (9.3-17.3); White Blood Count 12.9 T/CUMM (4-12)
[2020-04-27 04:50] LABS: ABG Base Excess 3.9 MMOL/L (-2.5-2.5); ABG HCO3 27.9 MMOL/L (20-26); ABG Oxygen Saturation 98.2 % (95-100); ABG PCO2 38.2 MM HG (35-48); ABG PH 7.469 (7.35-7.45); ABG PO2 97.7 MM HG (80-95); ABG TCO2 25.1 MMOL/L (23-27)
[2020-04-27 07:26] LABS: Sedimentation Rate-Westergren 63 MM/HR (0-30)
[2020-04-27] MEDS: ZINC SULFATE 220 MG CAPSULE PO SCH (08:57)
[2020-04-27] MEDS: ASPIRIN CHEW 81 MG TABLET PO SCH (08:57)
[2020-04-27] MEDS: CHOLECALCIFEROL 5,000 UNIT TABLET PO SCH (08:57)
[2020-04-27] MEDS: DEXAMETHASONE 4 MG/1 ML VIAL IV SCH (08:58)
[2020-04-27] MEDS: ZINC OXIDE PASTE 113 GM TUBE TOP SCH ×2 (08:58→20:40)
[2020-04-27] MEDS: PANTOPRAZOLE 40 MG VIAL IV SCH ×2 (08:58→20:40)
[2020-04-27] MEDS: LEVOFLOXACIN INJ 750 MG in PREMIX 1 EACH IV SCH (12:40)
[2020-04-27] MEDS ORDERED: LORazepam 2 MG/1 ML VIAL IV PRN (14:19)
[2020-04-27] MEDS: FLUCONAZOLE INJ 400 MG in PREMIX 1 EACH IV SCH (17:15)
[2020-04-27] MEDS: SERTRALINE 100 MG TABLET PO SCH (20:40)
[2020-04-27] MEDS: GABAPENTIN 300 MG CAPSULE PO SCH (20:40)
[2020-04-27] MEDS: ATORVASTATIN 20 MG TABLET PO SCH (20:40)
[2020-04-28] MEDS: INSULIN REGULAR 100 UNIT/ML SUBCUT SCH ×4 (01:47→18:20)
[2020-04-28] MEDS: ENOXAPARIN 30 MG/0.3 ML SYRINGE SUBCUT SCH ×2 (01:47→12:50)
[2020-04-28 05:11] LABS: ABG Base Excess 3.9 MMOL/L (-2.5-2.5); ABG HCO3 27.9 MMOL/L (20-26); ABG Oxygen Saturation 99.7 % (95-100); ABG PCO2 38.7 MM HG (35-48); ABG PH 7.464 (7.35-7.45); ABG TCO2 25.3 MMOL/L (23-27); Allen Test Positive; Pt O2 Delivery Device Ventilator
[2020-04-28 06:30] LABS: Basophils % 0.1 % (0.0-0.8); Hematocrit 30.9 VOL% (35.7-47.0); Hemoglobin 9.7 GM/DL (12.0-16.0); Immature Granulocytes % 2.7 %; Immature Granulocytes Absolute 0.33 #; Lymphocytes # 0.8 10*3/uL (1.4-4.0); Lymphocytes % 6.7 % (21.3-54.2); Mean Corpuscular HGB Conc 31.4 GM/DL (32-36); Mean Corpuscular Volume 92.5 FL (87-102); Mean Platelet Volume 10.1 FL (9.6-12.0); Monocytes % 7.7 % (1.7-12.7); Neutrophils % 82.8 % (38.7-73.9); Platelet Count 393 T/CUMM (130-400); Red Blood Count 3.34 MC/CUMM (3.8-5.5); Red Cell Distribution Width 15.4 % (9.3-17.3); White Blood Count 12.2 T/CUMM (4-12)
[2020-04-28 07:17] LABS: Albumin 2.2 G/DL (3.4-5.0); Bilirubin,Total 0.8 MG/DL (0.2-1.0); Calcium 8.8 MG/DL (8.5-10.1); Ferritin 512.9 ng/ml (8-252); Osmolality,Calculated 280.5 MOS/KG (273-304); Total Protein 5.3 G/DL (6.4-8.3)
[2020-04-28] MEDS: ZINC SULFATE 220 MG CAPSULE PO SCH (08:00)
[2020-04-28] MEDS: CHOLECALCIFEROL 5,000 UNIT TABLET PO SCH (08:00)
[2020-04-28] MEDS: DEXAMETHASONE 4 MG/1 ML VIAL IV SCH (08:00)
[2020-04-28] MEDS: PANTOPRAZOLE 40 MG VIAL IV SCH ×2 (08:00→21:42)
[2020-04-28] MEDS: ASPIRIN CHEW 81 MG TABLET PO SCH (08:01)
[2020-04-28] MEDS: ZINC OXIDE PASTE 113 GM TUBE TOP SCH ×2 (08:01→21:42)
[2020-04-28 08:18] LABS: Sedimentation Rate-Westergren 60 MM/HR (0-30)
[2020-04-28 09:25] LABS: ABG Base Excess 3.5 MMOL/L (-2.5-2.5); ABG HCO3 27.6 MMOL/L (20-26); ABG Oxygen Saturation 98.8 % (95-100); ABG PCO2 37.9 MM HG (35-48); ABG PH 7.466 (7.35-7.45); ABG TCO2 24.7 MMOL/L (23-27)
[2020-04-28] MEDS: LEVOFLOXACIN INJ 750 MG in PREMIX 1 EACH IV SCH (11:46)
[2020-04-28] MEDS: FLUCONAZOLE INJ 400 MG in PREMIX 1 EACH IV SCH (14:10)
[2020-04-28] MEDS: clonazePAM 0.5 MG TABLET PO PRN (15:00)
[2020-04-28] MEDS: SERTRALINE 100 MG TABLET PO SCH (21:42)
[2020-04-28] MEDS: GABAPENTIN 300 MG CAPSULE PO SCH (21:42)
[2020-04-28] MEDS: ATORVASTATIN 20 MG TABLET PO SCH (21:42)
[2020-04-29] MEDS: ENOXAPARIN 30 MG/0.3 ML SYRINGE SUBCUT SCH ×2 (00:42→12:05)
[2020-04-29] MEDS: INSULIN REGULAR 100 UNIT/ML SUBCUT SCH ×4 (00:46→17:36)
[2020-04-29] MEDS: MIDAZOLAM 100 MG in SODIUM CHLORIDE 0.9% 80 ML IV PRN (04:31)
[2020-04-29 04:46] LABS: Basophils % 0.1 % (0.0-0.8); Eosinophils % 0.2 % (0.00-10.9); Hematocrit 30.6 VOL% (35.7-47.0); Hemoglobin 9.6 GM/DL (12.0-16.0); Immature Granulocytes % 1.8 %; Immature Granulocytes Absolute 0.25 #; Lymphocytes # 1.4 10*3/uL (1.4-4.0); Lymphocytes % 9.7 % (21.3-54.2); Mean Corpuscular HGB Conc 31.4 GM/DL (32-36); Mean Corpuscular Volume 92.7 FL (87-102); Mean Platelet Volume 9.8 FL (9.6-12.0); Monocytes % 7.8 % (1.7-12.7); Neutrophils % 80.4 % (38.7-73.9); Platelet Count 391 T/CUMM (130-400); Red Cell Distribution Width 15.7 % (9.3-17.3); White Blood Count 13.9 T/CUMM (4-12)
[2020-04-29 04:58] LABS: ABG Base Excess 4.5 MMOL/L (-2.5-2.5); ABG Oxygen Saturation 98.8 % (95-100); ABG PCO2 37.8 MM HG (35-48); ABG PH 7.488 (7.35-7.45); ABG PO2 168.9 MM HG (80-95); ABG TCO2 29.2 MMOL/L (23-27); Allen Test Positive; Pt O2 Delivery Device Ventilator
[2020-04-29 05:06] LABS: Calcium 8.9 MG/DL (8.5-10.1); Osmolality,Calculated 277.5 MOS/KG (273-304)
[2020-04-29] MEDS: ASPIRIN CHEW 81 MG TABLET PO SCH (08:30)
[2020-04-29] MEDS: ZINC SULFATE 220 MG CAPSULE PO SCH (08:30)
[2020-04-29] MEDS: CHOLECALCIFEROL 5,000 UNIT TABLET PO SCH (08:30)
[2020-04-29] MEDS: ZINC OXIDE PASTE 113 GM TUBE TOP SCH ×2 (08:30→19:38)
[2020-04-29] MEDS: PANTOPRAZOLE 40 MG VIAL IV SCH ×2 (09:18→19:36)
[2020-04-29] MEDS: DEXAMETHASONE 4 MG/1 ML VIAL IV SCH (09:18)
[2020-04-29] MEDS: SERTRALINE 100 MG TABLET PO SCH (10:12)
[2020-04-29] MEDS: DESITIN 4OZ/NYSTATIN 15 GRAM MIXTURE PASTE TOP SCH ×2 (10:48→19:40)
[2020-04-29] MEDS: clonazePAM 0.5 MG TABLET PO PRN (12:30)
[2020-04-29] MEDS: LEVOFLOXACIN INJ 750 MG in PREMIX 1 EACH IV SCH (12:57)
[2020-04-29] MEDS: FLUCONAZOLE INJ 400 MG in PREMIX 1 EACH IV SCH (15:10)
[2020-04-29] MEDS: ATORVASTATIN 20 MG TABLET PO SCH (19:36)
[2020-04-29] MEDS: GABAPENTIN 300 MG CAPSULE PO SCH (19:36)
[2020-04-30] MEDS: ENOXAPARIN 30 MG/0.3 ML SYRINGE SUBCUT SCH ×2 (00:13→11:44)
[2020-04-30] MEDS: INSULIN REGULAR 100 UNIT/ML SUBCUT SCH ×4 (01:10→18:35)
[2020-04-30 03:24] LABS: Basophils % 0.2 % (0.0-0.8); Eosinophils % 0.4 % (0.00-10.9); Hematocrit 29.9 VOL% (35.7-47.0); Hemoglobin 9.3 GM/DL (12.0-16.0); Immature Granulocytes % 1.6 %; Immature Granulocytes Absolute 0.17 #; Lymphocytes # 1.1 10*3/uL (1.4-4.0); Lymphocytes % 10.3 % (21.3-54.2); Mean Corpuscular HGB Conc 31.1 GM/DL (32-36); Mean Corpuscular Volume 92.9 FL (87-102); Mean Platelet Volume 9.5 FL (9.6-12.0); Monocytes % 8.2 % (1.7-12.7); Neutrophils % 79.3 % (38.7-73.9); Platelet Count 345 T/CUMM (130-400); Red Blood Count 3.22 MC/CUMM (3.8-5.5); Red Cell Distribution Width 15.9 % (9.3-17.3); White Blood Count 10.8 T/CUMM (4-12)
[2020-04-30 03:45] LABS: Calcium 8.8 MG/DL (8.5-10.1); Osmolality,Calculated 280.7 MOS/KG (273-304)
[2020-04-30 04:13] LABS: ABG Base Excess 4.9 MMOL/L (-2.5-2.5); ABG HCO3 28.9 MMOL/L (20-26); ABG Oxygen Saturation 99.5 % (95-100); ABG PCO2 39.9 MM HG (35-48); ABG PH 7.469 (7.35-7.45); ABG TCO2 25.7 MMOL/L (23-27)
[2020-04-30] MEDS: ZINC SULFATE 220 MG CAPSULE PO SCH (08:02)
[2020-04-30] MEDS: clonazePAM 0.5 MG TABLET PO PRN (08:02)
[2020-04-30] MEDS: ASPIRIN CHEW 81 MG TABLET PO SCH (08:02)
[2020-04-30] MEDS: DEXAMETHASONE 4 MG/1 ML VIAL IV SCH (08:03)
[2020-04-30] MEDS: POTASSIUM CHLORIDE 20 MEQ/15 ML UDCUP PER TUBE PRN (08:03)
[2020-04-30] MEDS: DESITIN 4OZ/NYSTATIN 15 GRAM MIXTURE PASTE TOP SCH ×2 (08:04→20:17)
[2020-04-30] MEDS: PANTOPRAZOLE 40 MG VIAL IV SCH ×2 (08:04→20:17)
[2020-04-30] MEDS: ZINC OXIDE PASTE 113 GM TUBE TOP SCH ×2 (08:04→20:17)
[2020-04-30] MEDS: CHOLECALCIFEROL 5,000 UNIT TABLET PO SCH (08:04)
[2020-04-30] MEDS: LEVOFLOXACIN INJ 750 MG in PREMIX 1 EACH IV SCH (11:44)
[2020-04-30] MEDS: FLUCONAZOLE INJ 400 MG in PREMIX 1 EACH IV SCH (13:20)
[2020-04-30] MEDS: ATORVASTATIN 20 MG TABLET PO SCH (20:17)
[2020-04-30] MEDS: GABAPENTIN 300 MG CAPSULE PO SCH (20:17)
[2020-04-30] MEDS: SERTRALINE 100 MG TABLET PO SCH (20:18)
[2020-04-30] MEDS: MIDAZOLAM 100 MG in SODIUM CHLORIDE 0.9% 80 ML IV PRN (23:36)
[2020-05-01] MEDS: INSULIN REGULAR 100 UNIT/ML SUBCUT SCH ×4 (00:25→18:35)
[2020-05-01] MEDS: ENOXAPARIN 30 MG/0.3 ML SYRINGE SUBCUT SCH ×2 (00:25→14:30)
[2020-05-01 04:44] LABS: Basophils % 0.2 % (0.0-0.8); Eosinophils # 0.1 10*3/uL (0.0-0.87); Eosinophils % 0.4 % (0.00-10.9); Hematocrit 31.1 VOL% (35.7-47.0); Hemoglobin 9.7 GM/DL (12.0-16.0); Immature Granulocytes % 1.5 %; Immature Granulocytes Absolute 0.18 #; Lymphocytes # 1.3 10*3/uL (1.4-4.0); Lymphocytes % 10.5 % (21.3-54.2); Mean Corpuscular HGB Conc 31.2 GM/DL (32-36); Mean Corpuscular Volume 93.7 FL (87-102); Mean Platelet Volume 9.5 FL (9.6-12.0); Monocytes % 7.8 % (1.7-12.7); Neutrophils % 79.6 % (38.7-73.9); Platelet Count 362 T/CUMM (130-400); Red Blood Count 3.32 MC/CUMM (3.8-5.5); Red Cell Distribution Width 16.2 % (9.3-17.3); White Blood Count 11.9 T/CUMM (4-12)
[2020-05-01 04:49] LABS: ABG Base Excess 6.8 MMOL/L (-2.5-2.5); ABG HCO3 30.7 MMOL/L (20-26); ABG Oxygen Saturation 99.8 % (95-100); ABG PCO2 39.5 MM HG (35-48); ABG PH 7.497 (7.35-7.45); ABG TCO2 27.5 MMOL/L (23-27); Allen Test Positive; Pt O2 Delivery Device Ventilator
[2020-05-01 05:20] LABS: Calcium 9.4 MG/DL (8.5-10.1); Osmolality,Calculated 283.4 MOS/KG (273-304)
[2020-05-01] MEDS: POTASSIUM CHLORIDE 20 MEQ/15 ML UDCUP PER TUBE PRN (06:15)
[2020-05-01] MEDS: CHOLECALCIFEROL 5,000 UNIT TABLET PO SCH (09:04)
[2020-05-01] MEDS: ASPIRIN CHEW 81 MG TABLET PO SCH (09:04)
[2020-05-01] MEDS: ZINC SULFATE 220 MG CAPSULE PO SCH (09:04)
[2020-05-01] MEDS: clonazePAM 0.5 MG TABLET PO PRN (09:04)
[2020-05-01] MEDS: DEXAMETHASONE 4 MG/1 ML VIAL IV SCH (09:04)
[2020-05-01] MEDS: ZINC OXIDE PASTE 113 GM TUBE TOP SCH ×2 (09:05→20:03)
[2020-05-01] MEDS: PANTOPRAZOLE 40 MG VIAL IV SCH ×2 (09:05→20:03)
[2020-05-01] MEDS: DESITIN 4OZ/NYSTATIN 15 GRAM MIXTURE PASTE TOP SCH ×2 (09:05→20:03)
[2020-05-01] MEDS: SERTRALINE 100 MG TABLET PO SCH (20:03)
[2020-05-01] MEDS: ATORVASTATIN 20 MG TABLET PO SCH (20:03)
[2020-05-01] MEDS: GABAPENTIN 300 MG CAPSULE PO SCH (20:03)
[2020-05-01] MEDS: QUEtiapine 25 MG TABLET PO SCH (20:03)
[2020-05-01] MEDS: DEXMEDETOMIDINE 200 MCG in SODIUM CHLORIDE 0.9% 48 ML IV PRN ×2 (20:15→21:12)
[2020-05-02] MEDS: INSULIN REGULAR 100 UNIT/ML SUBCUT SCH ×4 (00:14→17:44)
[2020-05-02] MEDS: ENOXAPARIN 30 MG/0.3 ML SYRINGE SUBCUT SCH ×2 (00:14→12:15)
[2020-05-02] MEDS: DEXMEDETOMIDINE 400 MCG in SODIUM CHLORIDE 0.9% 96 ML IV PRN ×3 (01:48→20:16)
[2020-05-02 05:11] LABS: ABG Base Excess 7.6 MMOL/L (-2.5-2.5); ABG HCO3 31.4 MMOL/L (20-26); ABG Oxygen Saturation 99.9 % (95-100); ABG PCO2 34.6 MM HG (35-48); ABG PH 7.549 (7.35-7.45); ABG TCO2 26.6 MMOL/L (23-27); Allen Test Positive; Pt O2 Delivery Device Ventilator
[2020-05-02 06:17] LABS: Ferritin 437.5 ng/ml (8-252)
[2020-05-02 06:19] LABS: Albumin 2.3 G/DL (3.4-5.0); Bilirubin,Total 1.5 MG/DL (0.2-1.0); Osmolality,Calculated 279.5 MOS/KG (273-304); Total Protein 5.9 G/DL (6.4-8.3)
[2020-05-02] MEDS: ASPIRIN CHEW 81 MG TABLET PO SCH (09:01)
[2020-05-02] MEDS: CHOLECALCIFEROL 5,000 UNIT TABLET PO SCH (09:01)
[2020-05-02] MEDS: ZINC SULFATE 220 MG CAPSULE PO SCH (09:01)
[2020-05-02] MEDS: QUEtiapine 25 MG TABLET PO SCH ×2 (09:01→20:55)
[2020-05-02] MEDS: DEXAMETHASONE 4 MG/1 ML VIAL IV SCH (09:01)
[2020-05-02] MEDS: DESITIN 4OZ/NYSTATIN 15 GRAM MIXTURE PASTE TOP SCH ×2 (09:02→20:55)
[2020-05-02] MEDS: PANTOPRAZOLE 40 MG VIAL IV SCH ×2 (09:02→20:55)
[2020-05-02] MEDS: ZINC OXIDE PASTE 113 GM TUBE TOP SCH ×2 (09:02→20:54)
[2020-05-02 11:08] LABS: Basophils % 0.2 % (0.0-0.8); Eosinophils # 0.1 10*3/uL (0.0-0.87); Hematocrit 31.3 VOL% (35.7-47.0); Hemoglobin 9.9 GM/DL (12.0-16.0); Immature Granulocytes % 1.5 %; Lymphocytes # 1.4 10*3/uL (1.4-4.0); Lymphocytes % 10.3 % (21.3-54.2); Mean Corpuscular HGB Conc 31.6 GM/DL (32-36); Mean Corpuscular Volume 93.4 FL (87-102); Mean Platelet Volume 9.8 FL (9.6-12.0); Monocytes % 6.2 % (1.7-12.7); Neutrophils % 80.8 % (38.7-73.9); Platelet Count 331 T/CUMM (130-400); Red Blood Count 3.35 MC/CUMM (3.8-5.5); White Blood Count 13.7 T/CUMM (4-12)
[2020-05-02 11:37] LABS: ABG Base Excess 5.2 MMOL/L (-2.5-2.5); ABG HCO3 29.1 MMOL/L (20-26); ABG Oxygen Saturation 99.4 % (95-100); ABG PCO2 46.1 MM HG (35-48); ABG PH 7.426 (7.35-7.45); ABG TCO2 27.5 MMOL/L (23-27)
[2020-05-02] MEDS: ATORVASTATIN 20 MG TABLET PO SCH (20:54)
[2020-05-02] MEDS: GABAPENTIN 300 MG CAPSULE PO SCH (20:55)
[2020-05-02] MEDS: SERTRALINE 100 MG TABLET PO SCH (20:55)
[2020-05-03] MEDS: ENOXAPARIN 30 MG/0.3 ML SYRINGE SUBCUT SCH ×2 (00:30→12:08)
[2020-05-03] MEDS: INSULIN REGULAR 100 UNIT/ML SUBCUT SCH ×4 (00:30→19:28)
[2020-05-03 04:41] LABS: ABG Base Excess 5.9 MMOL/L (-2.5-2.5); ABG HCO3 30.2 MMOL/L (20-26); ABG Oxygen Saturation 98.7 % (95-100); ABG PCO2 42.8 MM HG (35-48); ABG PH 7.467 (7.35-7.45); ABG PO2 157.9 MM HG (80-95); ABG TCO2 31.6 MMOL/L (23-27); Allen Test Positive; Pt O2 Delivery Device Ventilator
[2020-05-03 04:51] LABS: Basophils % 0.2 % (0.0-0.8); Eosinophils # 0.1 10*3/uL (0.0-0.87); Eosinophils % 1.1 % (0.00-10.9); Hematocrit 31.2 VOL% (35.7-47.0); Immature Granulocytes % 0.9 %; Immature Granulocytes Absolute 0.11 #; Lymphocytes # 1.9 10*3/uL (1.4-4.0); Mean Corpuscular HGB Conc 32.1 GM/DL (32-36); Mean Corpuscular Volume 91.8 FL (87-102); Mean Platelet Volume 9.9 FL (9.6-12.0); Monocytes % 6.6 % (1.7-12.7); Neutrophils % 76.2 % (38.7-73.9); Platelet Count 291 T/CUMM (130-400); Red Cell Distribution Width 16.1 % (9.3-17.3); White Blood Count 12.6 T/CUMM (4-12)
[2020-05-03 04:56] LABS: Calcium 9.2 MG/DL (8.5-10.1); Osmolality,Calculated 283.4 MOS/KG (273-304)
[2020-05-03] MEDS: DEXMEDETOMIDINE 400 MCG in SODIUM CHLORIDE 0.9% 96 ML IV PRN ×3 (05:10→23:55)
[2020-05-03] MEDS: PANTOPRAZOLE 40 MG VIAL IV SCH ×2 (08:00→21:06)
[2020-05-03] MEDS: CHOLECALCIFEROL 5,000 UNIT TABLET PO SCH (08:01)
[2020-05-03] MEDS: DEXAMETHASONE 4 MG/1 ML VIAL IV SCH (08:01)
[2020-05-03] MEDS: ASPIRIN CHEW 81 MG TABLET PO SCH (08:01)
[2020-05-03] MEDS: QUEtiapine 25 MG TABLET PO SCH ×2 (08:01→21:06)
[2020-05-03] MEDS: ZINC SULFATE 220 MG CAPSULE PO SCH (08:01)
[2020-05-03] MEDS: ZINC OXIDE PASTE 113 GM TUBE TOP SCH ×2 (08:03→21:06)
[2020-05-03] MEDS: DESITIN 4OZ/NYSTATIN 15 GRAM MIXTURE PASTE TOP SCH ×2 (08:03→21:06)
[2020-05-03] MEDS: clonazePAM 0.5 MG TABLET PO PRN (14:54)
[2020-05-03] MEDS: ATORVASTATIN 20 MG TABLET PO SCH (21:06)
[2020-05-03] MEDS: SERTRALINE 100 MG TABLET PO SCH (21:06)
[2020-05-03] MEDS: GABAPENTIN 300 MG CAPSULE PO SCH (21:06)
[2020-05-03] MEDS: ZIPRASIDONE 20 MG/1 ML VIAL IM PRN (21:17)
[2020-05-04] MEDS: ENOXAPARIN 30 MG/0.3 ML SYRINGE SUBCUT SCH ×2 (00:21→12:10)
[2020-05-04] MEDS: INSULIN REGULAR 100 UNIT/ML SUBCUT SCH ×5 (00:21→23:52)
[2020-05-04] MEDS: NOREPINEPHRINE 8 MG in SODIUM CHLORIDE 0.9% 242 ML IV PRN (03:27)
[2020-05-04 03:50] LABS: ABG HCO3 29.6 MMOL/L (20-26); ABG PCO2 38.7 MM HG (35-48); ABG PH 7.501 (7.35-7.45); ABG PO2 118.4 MM HG (80-95); ABG TCO2 30.8 MMOL/L (23-27); Allen Test Positive; Pt O2 Delivery Device Ventilator
[2020-05-04 04:55] LABS: Basophils % 0.2 % (0.0-0.8); Eosinophils # 0.2 10*3/uL (0.0-0.87); Eosinophils % 1.9 % (0.00-10.9); Hematocrit 31.3 VOL% (35.7-47.0); Hemoglobin 9.8 GM/DL (12.0-16.0); Immature Granulocytes % 1.1 %; Immature Granulocytes Absolute 0.13 #; Lymphocytes # 1.5 10*3/uL (1.4-4.0); Lymphocytes % 12.2 % (21.3-54.2); Mean Corpuscular HGB Conc 31.3 GM/DL (32-36); Mean Corpuscular Volume 94.3 FL (87-102); Monocytes % 5.9 % (1.7-12.7); Neutrophils % 78.7 % (38.7-73.9); Platelet Count 262 T/CUMM (130-400); Red Blood Count 3.32 MC/CUMM (3.8-5.5); Red Cell Distribution Width 16.2 % (9.3-17.3); White Blood Count 11.9 T/CUMM (4-12)
[2020-05-04 05:00] LABS: Calcium 8.8 MG/DL (8.5-10.1)
[2020-05-04] MEDS: DEXAMETHASONE 4 MG/1 ML VIAL IV SCH (08:03)
[2020-05-04] MEDS: PANTOPRAZOLE 40 MG VIAL IV SCH ×2 (08:03→20:01)
[2020-05-04] MEDS: POTASSIUM CHLORIDE 20 MEQ/15 ML UDCUP PER TUBE PRN ×4 (08:03→18:48)
[2020-05-04] MEDS: CHOLECALCIFEROL 5,000 UNIT TABLET PO SCH (08:04)
[2020-05-04] MEDS: QUEtiapine 25 MG TABLET PO SCH ×2 (08:04→20:01)
[2020-05-04] MEDS: ZINC OXIDE PASTE 113 GM TUBE TOP SCH ×2 (08:04→20:01)
[2020-05-04] MEDS: ASPIRIN CHEW 81 MG TABLET PO SCH (08:04)
[2020-05-04] MEDS: ZINC SULFATE 220 MG CAPSULE PO SCH (08:04)
[2020-05-04] MEDS: DESITIN 4OZ/NYSTATIN 15 GRAM MIXTURE PASTE TOP SCH ×2 (08:04→20:01)
[2020-05-04] MEDS: ZIPRASIDONE 20 MG/1 ML VIAL IM PRN ×2 (09:00→19:56)
[2020-05-04] MEDS: DEXMEDETOMIDINE 400 MCG in SODIUM CHLORIDE 0.9% 96 ML IV PRN ×2 (10:10→19:54)
[2020-05-04] MEDS: ATORVASTATIN 20 MG TABLET PO SCH (20:00)
[2020-05-04] MEDS: GABAPENTIN 300 MG CAPSULE PO SCH (20:00)
[2020-05-04] MEDS: SERTRALINE 100 MG TABLET PO SCH (20:01)
[2020-05-05] MEDS: ENOXAPARIN 30 MG/0.3 ML SYRINGE SUBCUT SCH ×2 (00:09→12:55)
[2020-05-05 04:24] LABS: ABG Base Excess 6.9 MMOL/L (-2.5-2.5); ABG HCO3 30.7 MMOL/L (20-26); ABG Oxygen Saturation 99.3 % (95-100); ABG PCO2 39.8 MM HG (35-48); ABG PH 7.495 (7.35-7.45); ABG TCO2 28.1 MMOL/L (23-27)
[2020-05-05 04:59] LABS: Basophils % 0.3 % (0.0-0.8); Eosinophils # 0.3 10*3/uL (0.0-0.87); Eosinophils % 2.4 % (0.00-10.9); Hematocrit 28.5 VOL% (35.7-47.0); Hemoglobin 8.7 GM/DL (12.0-16.0); Immature Granulocytes % 1.2 %; Immature Granulocytes Absolute 0.14 #; Lymphocytes # 1.4 10*3/uL (1.4-4.0); Lymphocytes % 11.9 % (21.3-54.2); Mean Corpuscular HGB Conc 30.5 GM/DL (32-36); Mean Platelet Volume 9.8 FL (9.6-12.0); Monocytes % 5.7 % (1.7-12.7); Neutrophils % 78.5 % (38.7-73.9); Platelet Count 214 T/CUMM (130-400); Red Cell Distribution Width 15.9 % (9.3-17.3); White Blood Count 11.9 T/CUMM (4-12)
[2020-05-05 05:15] LABS: Calcium 9.2 MG/DL (8.5-10.1); Osmolality,Calculated 290.1 MOS/KG (273-304)
[2020-05-05] MEDS: INSULIN REGULAR 100 UNIT/ML SUBCUT SCH ×3 (05:19→19:06)
[2020-05-05] MEDS: DEXMEDETOMIDINE 400 MCG in SODIUM CHLORIDE 0.9% 96 ML IV PRN (06:11)
[2020-05-05] MEDS: ZIPRASIDONE 20 MG/1 ML VIAL IM PRN (06:12)
[2020-05-05] MEDS: ZINC OXIDE PASTE 113 GM TUBE TOP SCH ×2 (08:47→20:10)
[2020-05-05] MEDS: ASPIRIN CHEW 81 MG TABLET PO SCH (08:47)
[2020-05-05] MEDS: PANTOPRAZOLE 40 MG VIAL IV SCH ×2 (08:47→20:10)
[2020-05-05] MEDS: DESITIN 4OZ/NYSTATIN 15 GRAM MIXTURE PASTE TOP SCH ×2 (08:47→20:42)
[2020-05-05] MEDS: CHOLECALCIFEROL 5,000 UNIT TABLET PO SCH (08:47)
[2020-05-05] MEDS: QUEtiapine 25 MG TABLET PO SCH ×2 (08:47→20:11)
[2020-05-05] MEDS: ZINC SULFATE 220 MG CAPSULE PO SCH (08:47)
[2020-05-05] MEDS: PIPERACILLIN/TAZOBACTAM 3,375 MG in SODIUM CHLORIDE 0.9% 100 ML IV SCH ×2 (11:35→18:05)
[2020-05-05] MEDS: DEXAMETHASONE 4 MG/1 ML VIAL IV SCH (12:55)
[2020-05-05] MEDS: ATORVASTATIN 20 MG TABLET PO SCH (20:10)
[2020-05-05] MEDS: GABAPENTIN 50 MG/ML 30 ML/BOTTLE NG SCH (20:10)
[2020-05-05] MEDS: SERTRALINE 100 MG TABLET PO SCH (20:11)
[2020-05-06] MEDS: ZIPRASIDONE 20 MG/1 ML VIAL IM PRN ×2 (00:10→14:25)
[2020-05-06] MEDS: INSULIN REGULAR 100 UNIT/ML SUBCUT SCH ×4 (00:11→18:10)
[2020-05-06] MEDS: ENOXAPARIN 30 MG/0.3 ML SYRINGE SUBCUT SCH ×2 (00:14→11:55)
[2020-05-06] MEDS: DEXMEDETOMIDINE 400 MCG in SODIUM CHLORIDE 0.9% 96 ML IV PRN ×3 (01:50→22:15)
[2020-05-06] MEDS: PIPERACILLIN/TAZOBACTAM 3,375 MG in SODIUM CHLORIDE 0.9% 100 ML IV SCH ×3 (03:45→18:54)
[2020-05-06 04:57] LABS: Basophils % 0.3 % (0.0-0.8); Eosinophils # 0.2 10*3/uL (0.0-0.87); Hematocrit 27.2 VOL% (35.7-47.0); Hemoglobin 8.4 GM/DL (12.0-16.0); Immature Granulocytes Absolute 0.11 #; Lymphocytes # 0.9 10*3/uL (1.4-4.0); Lymphocytes % 8.5 % (21.3-54.2); Mean Corpuscular HGB Conc 30.9 GM/DL (32-36); Mean Corpuscular Volume 94.1 FL (87-102); Mean Platelet Volume 10.2 FL (9.6-12.0); Monocytes % 4.8 % (1.7-12.7); Neutrophils % 83.4 % (38.7-73.9); Platelet Count 202 T/CUMM (130-400); Red Blood Count 2.89 MC/CUMM (3.8-5.5); Red Cell Distribution Width 15.6 % (9.3-17.3); White Blood Count 10.9 T/CUMM (4-12)
[2020-05-06 05:10] LABS: ABG Base Excess 6.1 MMOL/L (-2.5-2.5); ABG HCO3 29.6 MMOL/L (20-26); ABG Oxygen Saturation 98.7 % (95-100); ABG PCO2 38.4 MM HG (35-48); ABG PH 7.505 (7.35-7.45); ABG PO2 149.8 MM HG (80-95); ABG TCO2 30.8 MMOL/L (23-27); Allen Test Positive; Pt O2 Delivery Device Ventilator
[2020-05-06 05:15] LABS: Calcium 8.7 MG/DL (8.5-10.1); Osmolality,Calculated 288.1 MOS/KG (273-304)
[2020-05-06] MEDS: DEXAMETHASONE 4 MG/1 ML VIAL IV SCH (09:15)
[2020-05-06] MEDS: QUEtiapine 25 MG TABLET PO SCH ×2 (09:16→19:48)
[2020-05-06] MEDS: ZINC SULFATE 220 MG CAPSULE PO SCH (09:16)
[2020-05-06] MEDS: CHOLECALCIFEROL 5,000 UNIT TABLET PO SCH (09:16)
[2020-05-06] MEDS: ASPIRIN CHEW 81 MG TABLET PO SCH (09:16)
[2020-05-06] MEDS: PANTOPRAZOLE 40 MG VIAL IV SCH ×2 (09:16→19:40)
[2020-05-06] MEDS: ZINC OXIDE PASTE 113 GM TUBE TOP SCH ×2 (09:16→19:36)
[2020-05-06] MEDS: DESITIN 4OZ/NYSTATIN 15 GRAM MIXTURE PASTE TOP SCH ×2 (09:16→19:50)
[2020-05-06] MEDS: clonazePAM 0.5 MG TABLET PO PRN (19:35)
[2020-05-06] MEDS: SERTRALINE 100 MG TABLET PO SCH (19:50)
[2020-05-06] MEDS: ATORVASTATIN 20 MG TABLET PO SCH (22:27)
[2020-05-06] MEDS: GABAPENTIN 50 MG/ML 30 ML/BOTTLE NG SCH (22:28)
[2020-05-07] MEDS: ZIPRASIDONE 20 MG/1 ML VIAL IM PRN ×3 (01:00→20:26)
[2020-05-07] MEDS: ENOXAPARIN 30 MG/0.3 ML SYRINGE SUBCUT SCH ×2 (01:10→11:44)
[2020-05-07] MEDS: INSULIN REGULAR 100 UNIT/ML SUBCUT SCH ×4 (01:22→18:20)
[2020-05-07] MEDS: PIPERACILLIN/TAZOBACTAM 3,375 MG in SODIUM CHLORIDE 0.9% 100 ML IV SCH (04:54)
[2020-05-07 05:18] LABS: ABG Base Excess 6.6 MMOL/L (-2.5-2.5); ABG HCO3 30.6 MMOL/L (20-26); ABG Oxygen Saturation 99.1 % (95-100); ABG PCO2 41.8 MM HG (35-48); ABG PH 7.483 (7.35-7.45); ABG PO2 191.5 MM HG (80-95); ABG TCO2 31.9 MMOL/L (23-27); Allen Test Positive; Pt O2 Delivery Device Ventilator
[2020-05-07 05:37] LABS: Basophils % 0.3 % (0.0-0.8); Eosinophils # 0.5 10*3/uL (0.0-0.87); Eosinophils % 3.7 % (0.00-10.9); Hematocrit 30.7 VOL% (35.7-47.0); Hemoglobin 9.8 GM/DL (12.0-16.0); Immature Granulocytes % 1.5 %; Immature Granulocytes Absolute 0.22 #; Lymphocytes % 13.3 % (21.3-54.2); Mean Corpuscular HGB Conc 31.9 GM/DL (32-36); Mean Corpuscular Volume 92.5 FL (87-102); Mean Platelet Volume 10.2 FL (9.6-12.0); Monocytes % 7.9 % (1.7-12.7); Neutrophils % 73.3 % (38.7-73.9); Platelet Count 317 T/CUMM (130-400); Red Blood Count 3.32 MC/CUMM (3.8-5.5); Red Cell Distribution Width 15.4 % (9.3-17.3); White Blood Count 14.6 T/CUMM (4-12)
[2020-05-07 05:54] LABS: Calcium 9.1 MG/DL (8.5-10.1); Osmolality,Calculated 291.7 MOS/KG (273-304)
[2020-05-07] MEDS: POTASSIUM CHLORIDE 20 MEQ/15 ML UDCUP PER TUBE PRN ×4 (08:03→21:10)
[2020-05-07] MEDS: clonazePAM 0.5 MG TABLET PO PRN (08:03)
[2020-05-07] MEDS: ZINC SULFATE 220 MG CAPSULE PO SCH (08:03)
[2020-05-07] MEDS: QUEtiapine 25 MG TABLET PO SCH ×2 (08:03→20:23)
[2020-05-07] MEDS: CHOLECALCIFEROL 5,000 UNIT TABLET PO SCH (08:03)
[2020-05-07] MEDS: ASPIRIN CHEW 81 MG TABLET PO SCH (08:03)
[2020-05-07] MEDS: DEXAMETHASONE 4 MG/1 ML VIAL IV SCH (08:04)
[2020-05-07] MEDS: PANTOPRAZOLE 40 MG VIAL IV SCH ×2 (08:04→20:22)
[2020-05-07] MEDS: DESITIN 4OZ/NYSTATIN 15 GRAM MIXTURE PASTE TOP SCH ×2 (08:04→20:24)
[2020-05-07] MEDS: ZINC OXIDE PASTE 113 GM TUBE TOP SCH ×2 (08:04→20:26)
[2020-05-07] MEDS: MEROPENEM 500 MG in SODIUM CHLORIDE 0.9% 100 ML IV SCH ×3 (09:51→21:42)
[2020-05-07] MEDS: DEXMEDETOMIDINE 400 MCG in SODIUM CHLORIDE 0.9% 96 ML IV PRN (10:18)
[2020-05-07 13:43] LABS: Bacteria,Urine Occasional /HPF (Few); Bilirubin,Urine Negative (Negative); Blood, Urine Large mg/dL (Negative); Glucose,Urine (UA) Negative (Negative); Ketones,Urine Negative (Negative); Mucus,Urine Occasional /LPF (Occasional); Nitrite,Urine Negative (Negative); Protein,Urine Negative; RBC,Urine 240 /HPF (0-4); Urine Appearance CLEAR (Clear); Urine Color Red (Yellow); Urine Specific Gravity 1.008 (1.001-1.035); Urine Urobilinogen < 2.0 EU/DL (0.2-1.0); WBC,Urine 4 /HPF (0-6)
[2020-05-07] MEDS: NOREPINEPHRINE 8 MG in SODIUM CHLORIDE 0.9% 242 ML IV PRN (15:06)
[2020-05-07] MEDS: ATORVASTATIN 20 MG TABLET PO SCH (20:22)
[2020-05-07] MEDS: GABAPENTIN 50 MG/ML 30 ML/BOTTLE NG SCH (20:22)
[2020-05-07] MEDS: SERTRALINE 100 MG TABLET PO SCH (20:25)
[2020-05-08] MEDS: ENOXAPARIN 30 MG/0.3 ML SYRINGE SUBCUT SCH ×2 (00:13→11:07)
[2020-05-08] MEDS: INSULIN REGULAR 100 UNIT/ML SUBCUT SCH ×4 (01:09→17:36)
[2020-05-08] MEDS: MEROPENEM 500 MG in SODIUM CHLORIDE 0.9% 100 ML IV SCH ×4 (02:15→20:15)
[2020-05-08 04:08] LABS: Basophils % 0.3 % (0.0-0.8); Eosinophils # 0.3 10*3/uL (0.0-0.87); Eosinophils % 2.4 % (0.00-10.9); Hematocrit 29.1 VOL% (35.7-47.0); Hemoglobin 8.9 GM/DL (12.0-16.0); Immature Granulocytes % 1.6 %; Immature Granulocytes Absolute 0.18 #; Lymphocytes # 1.8 10*3/uL (1.4-4.0); Lymphocytes % 16.1 % (21.3-54.2); Mean Corpuscular HGB Conc 30.6 GM/DL (32-36); Mean Corpuscular Volume 95.4 FL (87-102); Monocytes % 8.7 % (1.7-12.7); Neutrophils % 70.9 % (38.7-73.9); Platelet Count 250 T/CUMM (130-400); Red Blood Count 3.05 MC/CUMM (3.8-5.5); Red Cell Distribution Width 15.6 % (9.3-17.3)
[2020-05-08 04:25] LABS: Calcium 9.1 MG/DL (8.5-10.1); Osmolality,Calculated 286.7 MOS/KG (273-304)
[2020-05-08 04:29] LABS: ABG Base Excess 8.3 MMOL/L (-2.5-2.5); ABG HCO3 31.6 MMOL/L (20-26); ABG Oxygen Saturation 98.8 % (95-100); ABG PCO2 38.5 MM HG (35-48); ABG PH 7.532 (7.35-7.45); ABG PO2 160.1 MM HG (80-95); ABG TCO2 32.8 MMOL/L (23-27); Allen Test Positive; Pt O2 Delivery Device Ventilator
[2020-05-08] MEDS: ASPIRIN CHEW 81 MG TABLET PO SCH (08:14)
[2020-05-08] MEDS: QUEtiapine 25 MG TABLET PO SCH ×2 (08:14→20:02)
[2020-05-08] MEDS: ZINC SULFATE 220 MG CAPSULE PO SCH (08:14)
[2020-05-08] MEDS: CHOLECALCIFEROL 5,000 UNIT TABLET PO SCH (08:14)
[2020-05-08] MEDS: ZINC OXIDE PASTE 113 GM TUBE TOP SCH ×2 (08:15→20:01)
[2020-05-08] MEDS: DEXAMETHASONE 4 MG/1 ML VIAL IV SCH (08:15)
[2020-05-08] MEDS: PANTOPRAZOLE 40 MG VIAL IV SCH ×2 (08:16→20:03)
[2020-05-08] MEDS: DESITIN 4OZ/NYSTATIN 15 GRAM MIXTURE PASTE TOP SCH ×2 (08:16→20:02)
[2020-05-08] MEDS: ACETAMINOPHEN 325 MG TABLET PO PRN (11:08)
[2020-05-08] MEDS: GABAPENTIN 50 MG/ML 30 ML/BOTTLE NG SCH (20:01)
[2020-05-08] MEDS: ATORVASTATIN 20 MG TABLET PO SCH (20:01)
[2020-05-08] MEDS: SERTRALINE 100 MG TABLET PO SCH (20:02)
[2020-05-08] MEDS: clonazePAM 0.5 MG TABLET PO PRN (20:04)
[2020-05-08] MEDS: ZIPRASIDONE 20 MG/1 ML VIAL IM PRN (20:08)
[2020-05-09] MEDS: ENOXAPARIN 30 MG/0.3 ML SYRINGE SUBCUT SCH ×3 (00:10→23:55)
[2020-05-09] MEDS: INSULIN REGULAR 100 UNIT/ML SUBCUT SCH ×4 (00:36→17:53)
[2020-05-09 02:20] LABS: ABG Base Excess 7.8 MMOL/L (-2.5-2.5); ABG HCO3 31.6 MMOL/L (20-26); ABG Oxygen Saturation 99.8 % (95-100); ABG PCO2 44.7 MM HG (35-48); ABG PH 7.468 (7.35-7.45); ABG TCO2 29.8 MMOL/L (23-27); Allen Test Positive; Pt O2 Delivery Device Ventilator
[2020-05-09] MEDS: MEROPENEM 500 MG in SODIUM CHLORIDE 0.9% 100 ML IV SCH ×4 (03:49→19:50)
[2020-05-09 04:22] LABS: Basophils % 0.3 % (0.0-0.8); Eosinophils # 0.4 10*3/uL (0.0-0.87); Eosinophils % 2.9 % (0.00-10.9); Hematocrit 29.4 VOL% (35.7-47.0); Hemoglobin 9.2 GM/DL (12.0-16.0); Immature Granulocytes % 4.2 %; Immature Granulocytes Absolute 0.51 #; Lymphocytes # 2.3 10*3/uL (1.4-4.0); Lymphocytes % 18.9 % (21.3-54.2); Mean Corpuscular HGB Conc 31.3 GM/DL (32-36); Mean Corpuscular Volume 92.7 FL (87-102); Mean Platelet Volume 9.7 FL (9.6-12.0); Monocytes % 8.4 % (1.7-12.7); NRBC # 0.02 10*3/uL; Neutrophils % 65.3 % (38.7-73.9); Platelet Count 275 T/CUMM (130-400); Red Blood Count 3.17 MC/CUMM (3.8-5.5); Red Cell Distribution Width 15.7 % (9.3-17.3); White Blood Count 12.1 T/CUMM (4-12)
[2020-05-09 04:47] LABS: Calcium 9.1 MG/DL (8.5-10.1)
[2020-05-09 06:31] LABS: Eosinophils 2 % (0-10); Metamyelocytes 1 %; Total Cells Counted 100
[2020-05-09 06:32] LABS: Band Neutrophils 3 % (0-10); Lymphocytes 19 % (20-55); Platelet Estimate Normal; Segmented Neutrophils 67 % (50-85)
[2020-05-09] MEDS: ZIPRASIDONE 20 MG/1 ML VIAL IM PRN ×3 (08:06→20:01)
[2020-05-09] MEDS: DEXAMETHASONE 4 MG/1 ML VIAL IV SCH (08:06)
[2020-05-09] MEDS: ASPIRIN CHEW 81 MG TABLET PO SCH (08:07)
[2020-05-09] MEDS: QUEtiapine 25 MG TABLET PO SCH ×2 (08:07→19:56)
[2020-05-09] MEDS: ZINC OXIDE PASTE 113 GM TUBE TOP SCH ×2 (08:07→19:50)
[2020-05-09] MEDS: CHOLECALCIFEROL 5,000 UNIT TABLET PO SCH (08:07)
[2020-05-09] MEDS: ZINC SULFATE 220 MG CAPSULE PO SCH (08:07)
[2020-05-09] MEDS: clonazePAM 0.5 MG TABLET PO PRN ×2 (08:07→17:53)
[2020-05-09] MEDS: POTASSIUM CHLORIDE 20 MEQ/15 ML UDCUP PER TUBE PRN ×3 (08:07→16:26)
[2020-05-09] MEDS: DESITIN 4OZ/NYSTATIN 15 GRAM MIXTURE PASTE TOP SCH ×2 (08:07→19:55)
[2020-05-09] MEDS: PANTOPRAZOLE 40 MG VIAL IV SCH ×2 (08:07→20:58)
[2020-05-09] MEDS ORDERED: MORPHINE 4 MG/1 ML VIAL IV ONE (10:04)
[2020-05-09] MEDS: NOREPINEPHRINE 8 MG in SODIUM CHLORIDE 0.9% 242 ML IV PRN (15:46)
[2020-05-09] MEDS: ATORVASTATIN 20 MG TABLET PO SCH (19:50)
[2020-05-09] MEDS: SERTRALINE 100 MG TABLET PO SCH (19:55)
[2020-05-09] MEDS: GABAPENTIN 50 MG/ML 30 ML/BOTTLE NG SCH (19:56)
[2020-05-10] MEDS: INSULIN REGULAR 100 UNIT/ML SUBCUT SCH ×4 (00:22→18:25)
[2020-05-10] MEDS: MEROPENEM 500 MG in SODIUM CHLORIDE 0.9% 100 ML IV SCH ×4 (02:26→21:36)
[2020-05-10 04:59] LABS: ABG Base Excess 6.9 MMOL/L (-2.5-2.5); ABG HCO3 30.8 MMOL/L (20-26); ABG Oxygen Saturation 99.9 % (95-100); ABG PCO2 41.1 MM HG (35-48); ABG PH 7.485 (7.35-7.45); ABG TCO2 28.5 MMOL/L (23-27); Allen Test Positive; Pt O2 Delivery Device Ventilator
[2020-05-10 05:18] LABS: Calcium 8.9 MG/DL (8.5-10.1); Osmolality,Calculated 294.6 MOS/KG (273-304)
[2020-05-10] MEDS: DEXAMETHASONE 4 MG/1 ML VIAL IV SCH (09:32)
[2020-05-10] MEDS: ZINC SULFATE 220 MG CAPSULE PO SCH (09:33)
[2020-05-10] MEDS: ZINC OXIDE PASTE 113 GM TUBE TOP SCH ×2 (09:33→21:00)
[2020-05-10] MEDS: DESITIN 4OZ/NYSTATIN 15 GRAM MIXTURE PASTE TOP SCH ×2 (09:33→21:00)
[2020-05-10] MEDS: PANTOPRAZOLE 40 MG VIAL IV SCH ×2 (09:33→21:00)
[2020-05-10] MEDS: CHOLECALCIFEROL 5,000 UNIT TABLET PO SCH (09:33)
[2020-05-10] MEDS: ASPIRIN CHEW 81 MG TABLET PO SCH (09:33)
[2020-05-10] MEDS: QUEtiapine 25 MG TABLET PO SCH ×2 (09:33→21:00)
[2020-05-10 11:35] LABS: Allen Test Positive; Pt O2 Delivery Device Ventilator
[2020-05-10 11:37] LABS: ABG Base Excess 4.8 MMOL/L (-2.5-2.5); ABG HCO3 28.7 MMOL/L (20-26); ABG Oxygen Saturation 99.2 % (95-100); ABG PCO2 43.7 MM HG (35-48); ABG PH 7.439 (7.35-7.45); ABG TCO2 26.1 MMOL/L (23-27)
[2020-05-10] MEDS: ENOXAPARIN 30 MG/0.3 ML SYRINGE SUBCUT SCH (12:45)
[2020-05-10] MEDS: ZIPRASIDONE 20 MG/1 ML VIAL IM PRN ×2 (14:55→21:02)
[2020-05-10] MEDS: GABAPENTIN 50 MG/ML 30 ML/BOTTLE NG SCH (21:00)
[2020-05-10] MEDS: ATORVASTATIN 20 MG TABLET PO SCH (21:00)
[2020-05-10] MEDS: SERTRALINE 100 MG TABLET PO SCH (21:01)
[2020-05-11] MEDS: ENOXAPARIN 30 MG/0.3 ML SYRINGE SUBCUT SCH ×2 (00:16→12:15)
[2020-05-11] MEDS: INSULIN REGULAR 100 UNIT/ML SUBCUT SCH ×4 (00:17→17:03)
[2020-05-11] MEDS: MEROPENEM 500 MG in SODIUM CHLORIDE 0.9% 100 ML IV SCH ×3 (03:48→18:35)
[2020-05-11] MEDS: ZIPRASIDONE 20 MG/1 ML VIAL IM PRN ×3 (03:49→20:10)
[2020-05-11 04:49] LABS: ABG Base Excess 6.6 MMOL/L (-2.5-2.5); ABG HCO3 30.1 MMOL/L (20-26); ABG Oxygen Saturation 98.5 % (95-100); ABG PH 7.506 (7.35-7.45); ABG PO2 140.4 MM HG (80-95); ABG TCO2 31.3 MMOL/L (23-27); Allen Test Positive; Pt O2 Delivery Device Ventilator
[2020-05-11 05:21] LABS: Basophils % 0.3 % (0.0-0.8); Eosinophils # 0.2 10*3/uL (0.0-0.87); Hemoglobin 8.1 GM/DL (12.0-16.0); Immature Granulocytes Absolute 0.55 #; Lymphocytes % 21.7 % (21.3-54.2); Mean Corpuscular HGB Conc 31.2 GM/DL (32-36); Mean Corpuscular Volume 95.6 FL (87-102); Mean Platelet Volume 9.7 FL (9.6-12.0); Monocytes % 7.2 % (1.7-12.7); NRBC # 0.03 10*3/uL; Neutrophils % 62.8 % (38.7-73.9); Platelet Count 232 T/CUMM (130-400); Red Blood Count 2.72 MC/CUMM (3.8-5.5); Red Cell Distribution Width 16.4 % (9.3-17.3); White Blood Count 9.2 T/CUMM (4-12)
[2020-05-11 05:53] LABS: Eosinophils 1 % (0-10); Hypochromasia 1+; Lymphocytes 22 % (20-55); Microcytosis 1+; Platelet Estimate Adequate; Segmented Neutrophils 73 % (50-85); Total Cells Counted 100
[2020-05-11 06:35] LABS: Calcium 8.9 MG/DL (8.5-10.1); Osmolality,Calculated 289.8 MOS/KG (273-304)
[2020-05-11] MEDS: ZINC SULFATE 220 MG CAPSULE PO SCH (08:47)
[2020-05-11] MEDS: DEXAMETHASONE 4 MG/1 ML VIAL IV SCH (08:47)
[2020-05-11] MEDS: CHOLECALCIFEROL 5,000 UNIT TABLET PO SCH (08:47)
[2020-05-11] MEDS: ASPIRIN CHEW 81 MG TABLET PO SCH (08:47)
[2020-05-11] MEDS: QUEtiapine 25 MG TABLET PO SCH ×2 (08:47→21:15)
[2020-05-11] MEDS: PANTOPRAZOLE 40 MG VIAL IV SCH ×2 (08:47→21:15)
[2020-05-11] MEDS: ZINC OXIDE PASTE 113 GM TUBE TOP SCH ×2 (08:47→21:14)
[2020-05-11] MEDS: DESITIN 4OZ/NYSTATIN 15 GRAM MIXTURE PASTE TOP SCH ×2 (08:48→21:15)
[2020-05-11] MEDS: GABAPENTIN 50 MG/ML 30 ML/BOTTLE NG SCH (21:14)
[2020-05-11] MEDS: ATORVASTATIN 20 MG TABLET PO SCH (21:14)
[2020-05-11] MEDS: SERTRALINE 100 MG TABLET PO SCH (21:15)
[2020-05-11] MEDS: ASCORBIC ACID 500 MG TABLET PO SCH (21:15)
[2020-05-12] MEDS: ENOXAPARIN 30 MG/0.3 ML SYRINGE SUBCUT SCH ×2 (00:26→11:45)
[2020-05-12] MEDS: INSULIN REGULAR 100 UNIT/ML SUBCUT SCH ×4 (00:26→17:57)
[2020-05-12] MEDS: MEROPENEM 500 MG in SODIUM CHLORIDE 0.9% 100 ML IV SCH ×4 (00:27→17:57)
[2020-05-12 04:45] LABS: ABG Base Excess 6.5 MMOL/L (-2.5-2.5); ABG HCO3 31.3 MMOL/L (20-26); ABG Oxygen Saturation 97.9 % (95-100); ABG PCO2 46.5 MM HG (35-48); ABG PH 7.446 (7.35-7.45); ABG PO2 118.4 MM HG (80-95); ABG TCO2 32.7 MMOL/L (23-27); Allen Test Positive; Pt O2 Delivery Device Ventilator
[2020-05-12 05:44] LABS: Basophils % 0.3 % (0.0-0.8); Eosinophils # 0.2 10*3/uL (0.0-0.87); Eosinophils % 2.2 % (0.00-10.9); Hematocrit 26.5 VOL% (35.7-47.0); Immature Granulocytes % 7.2 %; Immature Granulocytes Absolute 0.62 #; Lymphocytes % 23.3 % (21.3-54.2); Mean Corpuscular HGB Conc 30.2 GM/DL (32-36); Mean Corpuscular Volume 97.4 FL (87-102); Mean Platelet Volume 9.2 FL (9.6-12.0); Monocytes % 7.5 % (1.7-12.7); NRBC # 0.04 10*3/uL; Neutrophils % 59.5 % (38.7-73.9); Platelet Count 224 T/CUMM (130-400); Red Blood Count 2.72 MC/CUMM (3.8-5.5); Red Cell Distribution Width 16.8 % (9.3-17.3); White Blood Count 8.6 T/CUMM (4-12)
[2020-05-12 06:12] LABS: Eosinophils 1 % (0-10); Hypochromasia 1+; Lymphocytes 29 % (20-55); Platelet Estimate Adequate; Segmented Neutrophils 66 % (50-85); Total Cells Counted 100
[2020-05-12 06:13] LABS: Calcium 8.9 MG/DL (8.5-10.1); Microcytosis 1+; Osmolality,Calculated 292.7 MOS/KG (273-304)
[2020-05-12] MEDS: ASPIRIN CHEW 81 MG TABLET PO SCH (08:45)
[2020-05-12] MEDS: POTASSIUM CHLORIDE 20 MEQ/15 ML UDCUP PER TUBE PRN ×5 (08:45→21:10)
[2020-05-12] MEDS: CHOLECALCIFEROL 5,000 UNIT TABLET PO SCH (08:45)
[2020-05-12] MEDS: ASCORBIC ACID 500 MG TABLET PO SCH ×2 (08:45→19:55)
[2020-05-12] MEDS: CETIRIZINE 10 MG TABLET PO SCH (08:45)
[2020-05-12] MEDS: QUEtiapine 25 MG TABLET PO SCH ×2 (08:45→19:55)
[2020-05-12] MEDS: ZINC OXIDE PASTE 113 GM TUBE TOP SCH ×2 (08:45→19:50)
[2020-05-12] MEDS: ZINC SULFATE 220 MG CAPSULE PO SCH (08:46)
[2020-05-12] MEDS: DESITIN 4OZ/NYSTATIN 15 GRAM MIXTURE PASTE TOP SCH ×2 (08:46→19:55)
[2020-05-12] MEDS: PANTOPRAZOLE 40 MG VIAL IV SCH ×2 (08:46→19:50)
[2020-05-12] MEDS: DEXAMETHASONE 4 MG/1 ML VIAL IV SCH (08:46)
[2020-05-12] MEDS: ZIPRASIDONE 20 MG/1 ML VIAL IM PRN ×2 (09:19→16:34)
[2020-05-12 09:22] LABS: % Iron Saturation 32.6 % (18-50)
[2020-05-12] MEDS: ATORVASTATIN 20 MG TABLET PO SCH (19:50)
[2020-05-12] MEDS: GABAPENTIN 50 MG/ML 30 ML/BOTTLE NG SCH (19:50)
[2020-05-12] MEDS: SERTRALINE 100 MG TABLET PO SCH (19:55)
[2020-05-13] MEDS: ENOXAPARIN 30 MG/0.3 ML SYRINGE SUBCUT SCH ×2 (00:22→11:54)
[2020-05-13] MEDS: INSULIN REGULAR 100 UNIT/ML SUBCUT SCH ×4 (01:10→17:40)
[2020-05-13] MEDS: MEROPENEM 500 MG in SODIUM CHLORIDE 0.9% 100 ML IV SCH ×4 (01:11→18:05)
[2020-05-13 04:06] LABS: ABG Base Excess 7.4 MMOL/L (-2.5-2.5); ABG HCO3 31.2 MMOL/L (20-26); ABG Oxygen Saturation 99.3 % (95-100); ABG PCO2 38.1 MM HG (35-48); ABG PH 7.516 (7.35-7.45); ABG TCO2 28.2 MMOL/L (23-27)
[2020-05-13 04:52] LABS: Basophils % 0.3 % (0.0-0.8); Eosinophils # 0.3 10*3/uL (0.0-0.87); Eosinophils % 2.5 % (0.00-10.9); Hematocrit 27.7 VOL% (35.7-47.0); Hemoglobin 8.8 GM/DL (12.0-16.0); Immature Granulocytes % 5.8 %; Immature Granulocytes Absolute 0.63 #; Lymphocytes # 2.1 10*3/uL (1.4-4.0); Lymphocytes % 19.2 % (21.3-54.2); Mean Corpuscular HGB Conc 31.8 GM/DL (32-36); Mean Corpuscular Volume 94.2 FL (87-102); Mean Platelet Volume 9.7 FL (9.6-12.0); Monocytes % 6.5 % (1.7-12.7); NRBC # 0.03 10*3/uL; Neutrophils % 65.7 % (38.7-73.9); Platelet Count 231 T/CUMM (130-400); Red Blood Count 2.94 MC/CUMM (3.8-5.5); Red Cell Distribution Width 16.7 % (9.3-17.3); White Blood Count 10.9 T/CUMM (4-12)
[2020-05-13 05:17] LABS: Calcium 9.2 MG/DL (8.5-10.1); Osmolality,Calculated 284.1 MOS/KG (273-304)
[2020-05-13 05:27] LABS: Anisocytosis 1+; Band Neutrophils 7 % (0-10); Eosinophils 2 % (0-10); Lymphocytes 23 % (20-55); Macrocytosis 1+; Metamyelocytes 4 %; Platelet Estimate Normal; Segmented Neutrophils 56 % (50-85); Total Cells Counted 100
[2020-05-13] MEDS: ASPIRIN CHEW 81 MG TABLET PO SCH (08:03)
[2020-05-13] MEDS: CHOLECALCIFEROL 5,000 UNIT TABLET PO SCH (08:03)
[2020-05-13] MEDS: QUEtiapine 25 MG TABLET PO SCH ×2 (08:03→20:15)
[2020-05-13] MEDS: ZINC SULFATE 220 MG CAPSULE PO SCH (08:03)
[2020-05-13] MEDS: ASCORBIC ACID 500 MG TABLET PO SCH ×2 (08:03→20:15)
[2020-05-13] MEDS: CETIRIZINE 10 MG TABLET PO SCH (08:03)
[2020-05-13] MEDS: DEXAMETHASONE 4 MG/1 ML VIAL IV SCH (08:04)
[2020-05-13] MEDS: PANTOPRAZOLE 40 MG VIAL IV SCH ×2 (08:05→20:15)
[2020-05-13] MEDS: POTASSIUM CHLORIDE 20 MEQ/15 ML UDCUP PER TUBE PRN (08:07)
[2020-05-13] MEDS: ZINC OXIDE PASTE 113 GM TUBE TOP SCH ×2 (08:07→20:15)
[2020-05-13] MEDS: DESITIN 4OZ/NYSTATIN 15 GRAM MIXTURE PASTE TOP SCH ×2 (08:07→20:15)
[2020-05-13] MEDS: ZIPRASIDONE 20 MG/1 ML VIAL IM PRN (09:29)
[2020-05-13 11:36] LABS: ABG Base Excess 6.2 MMOL/L (-2.5-2.5); ABG Oxygen Saturation 97.5 % (95-100); ABG PCO2 40.3 MM HG (35-48); ABG PH 7.482 (7.35-7.45); ABG PO2 88.7 MM HG (80-95); ABG TCO2 27.5 MMOL/L (23-27)
[2020-05-13] MEDS: SERTRALINE 100 MG TABLET PO SCH (20:15)
[2020-05-13] MEDS: GABAPENTIN 50 MG/ML 30 ML/BOTTLE NG SCH (20:15)
[2020-05-13] MEDS: ATORVASTATIN 20 MG TABLET PO SCH (20:15)
[2020-05-14] MEDS: ENOXAPARIN 30 MG/0.3 ML SYRINGE SUBCUT SCH ×2 (00:12→12:24)
[2020-05-14] MEDS: INSULIN REGULAR 100 UNIT/ML SUBCUT SCH ×4 (00:12→17:35)
[2020-05-14] MEDS: MEROPENEM 500 MG in SODIUM CHLORIDE 0.9% 100 ML IV SCH ×4 (00:45→18:17)
[2020-05-14 04:04] LABS: ABG Base Excess 5.2 MMOL/L (-2.5-2.5); ABG HCO3 29.1 MMOL/L (20-26); ABG Oxygen Saturation 99.5 % (95-100); ABG PCO2 39.9 MM HG (35-48); ABG PH 7.472 (7.35-7.45); Allen Test Positive; Pt O2 Delivery Device Ventilator
[2020-05-14 05:16] LABS: Basophils % 0.3 % (0.0-0.8); Eosinophils # 0.4 10*3/uL (0.0-0.87); Eosinophils % 3.5 % (0.00-10.9); Hemoglobin 8.6 GM/DL (12.0-16.0); Immature Granulocytes % 4.9 %; Immature Granulocytes Absolute 0.56 #; Lymphocytes # 2.3 10*3/uL (1.4-4.0); Lymphocytes % 20.3 % (21.3-54.2); Mean Corpuscular HGB Conc 30.7 GM/DL (32-36); Mean Corpuscular Volume 95.9 FL (87-102); Mean Platelet Volume 9.7 FL (9.6-12.0); Monocytes % 5.5 % (1.7-12.7); NRBC # 0.04 10*3/uL; Neutrophils % 65.5 % (38.7-73.9); Platelet Count 236 T/CUMM (130-400); Red Blood Count 2.92 MC/CUMM (3.8-5.5); White Blood Count 11.4 T/CUMM (4-12)
[2020-05-14 05:25] LABS: Calcium 9.1 MG/DL (8.5-10.1)
[2020-05-14 05:46] LABS: Atypical Lymphocytes Few; Band Neutrophils 1 % (0-10); Eosinophils 1 % (0-10); Lymphocytes 20 % (20-55); Metamyelocytes 1 %; Polychromasia Slight; Segmented Neutrophils 68 % (50-85); Total Cells Counted 100
[2020-05-14 05:47] LABS: Hypochromasia Slight; Microcytosis 1+; Platelet Estimate Normal
[2020-05-14] MEDS: ZIPRASIDONE 20 MG/1 ML VIAL IM PRN ×2 (06:17→14:47)
[2020-05-14] MEDS: ZINC SULFATE 220 MG CAPSULE PO SCH (08:55)
[2020-05-14] MEDS: QUEtiapine 25 MG TABLET PO SCH ×2 (08:55→20:54)
[2020-05-14] MEDS: CETIRIZINE 10 MG TABLET PO SCH (08:55)
[2020-05-14] MEDS: ASCORBIC ACID 500 MG TABLET PO SCH ×2 (08:55→20:54)
[2020-05-14] MEDS: DEXAMETHASONE 4 MG/1 ML VIAL IV SCH (08:55)
[2020-05-14] MEDS: ASPIRIN CHEW 81 MG TABLET PO SCH (08:55)
[2020-05-14] MEDS: ZINC OXIDE PASTE 113 GM TUBE TOP SCH ×2 (08:55→20:55)
[2020-05-14] MEDS: CHOLECALCIFEROL 5,000 UNIT TABLET PO SCH (08:55)
[2020-05-14] MEDS: PANTOPRAZOLE 40 MG VIAL IV SCH ×2 (09:10→20:54)
[2020-05-14] MEDS: DESITIN 4OZ/NYSTATIN 15 GRAM MIXTURE PASTE TOP SCH ×2 (09:12→20:55)
[2020-05-14] MEDS ORDERED: LACTULOSE 20 GM/30 ML UDCUP PO PRN (09:13)
[2020-05-14] MEDS: DEXMEDETOMIDINE 400 MCG in SODIUM CHLORIDE 0.9% 96 ML IV PRN ×2 (11:05→20:56)
[2020-05-14] MEDS ORDERED: PHENYLEPHRINE DRIP 40 MG/250 ML PREMIX IV PRN (16:15)
[2020-05-14] MEDS: ATORVASTATIN 20 MG TABLET PO SCH (20:54)
[2020-05-14] MEDS: SERTRALINE 100 MG TABLET PO SCH (20:54)
[2020-05-14] MEDS: GABAPENTIN 50 MG/ML 30 ML/BOTTLE NG SCH (20:55)
[2020-05-15] MEDS: INSULIN REGULAR 100 UNIT/ML SUBCUT SCH ×4 (00:19→18:22)
[2020-05-15] MEDS: ENOXAPARIN 30 MG/0.3 ML SYRINGE SUBCUT SCH ×2 (00:36→11:50)
[2020-05-15] MEDS: MEROPENEM 500 MG in SODIUM CHLORIDE 0.9% 100 ML IV SCH ×4 (00:36→18:22)
[2020-05-15 04:59] LABS: ABG HCO3 28.9 MMOL/L (20-26); ABG Oxygen Saturation 98.7 % (95-100); ABG PCO2 41.4 MM HG (35-48); ABG PH 7.457 (7.35-7.45); Allen Test Positive; Pt O2 Delivery Device Ventilator
[2020-05-15 05:35] LABS: Calcium 8.3 MG/DL (8.5-10.1); Osmolality,Calculated 288.8 MOS/KG (273-304)
[2020-05-15] MEDS ORDERED: FUROSEMIDE 40 MG/4 ML VIAL IV ONE (07:10)
[2020-05-15 07:38] LABS: Basophils % 0.2 % (0.0-0.8); Eosinophils # 0.5 10*3/uL (0.0-0.87); Eosinophils % 3.3 % (0.00-10.9); Hematocrit 27.6 VOL% (35.7-47.0); Hemoglobin 8.5 GM/DL (12.0-16.0); Immature Granulocytes % 4.5 %; Lymphocytes # 2.5 10*3/uL (1.4-4.0); Lymphocytes % 15.8 % (21.3-54.2); Mean Corpuscular HGB Conc 30.8 GM/DL (32-36); Mean Corpuscular Volume 95.2 FL (87-102); Mean Platelet Volume 9.9 FL (9.6-12.0); Monocytes % 5.7 % (1.7-12.7); NRBC # 0.02 10*3/uL; Neutrophils % 70.5 % (38.7-73.9); Platelet Count 303 T/CUMM (130-400); Red Cell Distribution Width 16.7 % (9.3-17.3); White Blood Count 15.5 T/CUMM (4-12)
[2020-05-15 07:57] LABS: Eosinophils 2 % (0-10); Hypochromasia 1+; Lymphocytes 11 % (20-55); Microcytosis Slight; Ovalocytes Slight; Platelet Estimate Adequate; Segmented Neutrophils 84 % (50-85); Total Cells Counted 100
[2020-05-15] MEDS: CETIRIZINE 10 MG TABLET PO SCH (08:10)
[2020-05-15] MEDS: ZINC OXIDE PASTE 113 GM TUBE TOP SCH ×2 (08:10→20:19)
[2020-05-15] MEDS: CHOLECALCIFEROL 5,000 UNIT TABLET PO SCH (08:10)
[2020-05-15] MEDS: ASPIRIN CHEW 81 MG TABLET PO SCH (08:10)
[2020-05-15] MEDS: QUEtiapine 25 MG TABLET PO SCH (08:10)
[2020-05-15] MEDS: ZINC SULFATE 220 MG CAPSULE PO SCH (08:10)
[2020-05-15] MEDS: DEXAMETHASONE 4 MG/1 ML VIAL IV SCH (08:10)
[2020-05-15] MEDS: PANTOPRAZOLE 40 MG VIAL IV SCH ×2 (08:10→20:15)
[2020-05-15] MEDS: ASCORBIC ACID 500 MG TABLET PO SCH ×2 (09:01→20:16)
[2020-05-15] MEDS: DESITIN 4OZ/NYSTATIN 15 GRAM MIXTURE PASTE TOP SCH ×2 (09:01→20:19)
[2020-05-15] MEDS: SENNA 8.6 MG TABLET PO SCH ×2 (09:01→20:16)
[2020-05-15] MEDS: LORazepam 2 MG/1 ML VIAL IV PRN ×2 (10:50→20:26)
[2020-05-15] MEDS: DEXMEDETOMIDINE 400 MCG in SODIUM CHLORIDE 0.9% 96 ML IV PRN (11:56)
[2020-05-15] MEDS: ZIPRASIDONE 20 MG/1 ML VIAL IM PRN (14:45)
[2020-05-15] MEDS: ATORVASTATIN 20 MG TABLET PO SCH (20:16)
[2020-05-15] MEDS: SERTRALINE 100 MG TABLET PO SCH (20:16)
[2020-05-15] MEDS: GABAPENTIN 50 MG/ML 30 ML/BOTTLE PO SCH (20:19)
[2020-05-15] MEDS ORDERED: PHENYLEPHRINE DRIP 40 MG/250 ML PREMIX IV PRN (21:59)
[2020-05-16] MEDS: MEROPENEM 500 MG in SODIUM CHLORIDE 0.9% 100 ML IV SCH ×4 (00:19→19:01)
[2020-05-16] MEDS: ENOXAPARIN 30 MG/0.3 ML SYRINGE SUBCUT SCH ×2 (00:19→11:45)
[2020-05-16] MEDS: INSULIN REGULAR 100 UNIT/ML SUBCUT SCH ×4 (00:20→18:42)
[2020-05-16] MEDS: LORazepam 2 MG/1 ML VIAL IV PRN ×4 (03:50→20:39)
[2020-05-16 04:26] LABS: Basophils # 0.1 10*3/uL (0.0-0.2); Basophils % 0.5 % (0.0-0.8); Eosinophils # 0.2 10*3/uL (0.0-0.87); Eosinophils % 1.6 % (0.00-10.9); Hematocrit 29.4 VOL% (35.7-47.0); Hemoglobin 9.3 GM/DL (12.0-16.0); Immature Granulocytes % 2.1 %; Immature Granulocytes Absolute 0.28 #; Lymphocytes # 1.9 10*3/uL (1.4-4.0); Lymphocytes % 14.2 % (21.3-54.2); Mean Corpuscular HGB Conc 31.6 GM/DL (32-36); Mean Corpuscular Volume 93.6 FL (87-102); Mean Platelet Volume 9.6 FL (9.6-12.0); Monocytes % 6.9 % (1.7-12.7); NRBC # 0.02 10*3/uL; Neutrophils % 74.7 % (38.7-73.9); Platelet Count 276 T/CUMM (130-400); Red Blood Count 3.14 MC/CUMM (3.8-5.5); Red Cell Distribution Width 16.5 % (9.3-17.3); White Blood Count 13.2 T/CUMM (4-12)
[2020-05-16 04:35] LABS: Osmolality,Calculated 286.1 MOS/KG (273-304)
[2020-05-16 04:57] LABS: ABG Base Excess 6.1 MMOL/L (-2.5-2.5); ABG HCO3 29.9 MMOL/L (20-26); ABG Oxygen Saturation 89.4 % (95-100); ABG PCO2 38.3 MM HG (35-48); ABG PH 7.498 (7.35-7.45); ABG PO2 56.6 MM HG (80-95); ABG TCO2 27.2 MMOL/L (23-27); Allen Test Positive; Pt O2 Delivery Device Venturi Mask
[2020-05-16] MEDS: POTASSIUM CHLORIDE 20 MEQ/15 ML UDCUP PER TUBE PRN ×4 (06:05→16:15)
[2020-05-16] MEDS: PANTOPRAZOLE 40 MG VIAL IV SCH ×2 (08:22→20:37)
[2020-05-16] MEDS: DEXAMETHASONE 4 MG/1 ML VIAL IV SCH (08:22)
[2020-05-16] MEDS: ASPIRIN CHEW 81 MG TABLET PO SCH (08:23)
[2020-05-16] MEDS: ZINC SULFATE 220 MG CAPSULE PO SCH (08:23)
[2020-05-16] MEDS: SENNA 8.6 MG TABLET PO SCH ×2 (08:23→20:37)
[2020-05-16] MEDS: DESITIN 4OZ/NYSTATIN 15 GRAM MIXTURE PASTE TOP SCH ×2 (08:23→20:39)
[2020-05-16] MEDS: ZINC OXIDE PASTE 113 GM TUBE TOP SCH ×2 (08:23→20:38)
[2020-05-16] MEDS: GABAPENTIN 50 MG/ML 30 ML/BOTTLE PO SCH ×3 (08:23→20:37)
[2020-05-16] MEDS: CETIRIZINE 10 MG TABLET PO SCH (08:23)
[2020-05-16] MEDS: ASCORBIC ACID 500 MG TABLET PO SCH ×2 (08:23→20:38)
[2020-05-16] MEDS: CHOLECALCIFEROL 5,000 UNIT TABLET PO SCH (08:27)
[2020-05-16] MEDS ORDERED: HALOPERIDOL 5 MG/ML AMP IM PRN (10:10)
[2020-05-16] MEDS: DEXMEDETOMIDINE 400 MCG in SODIUM CHLORIDE 0.9% 96 ML IV PRN (11:15)
[2020-05-16] MEDS: MORPHINE 4 MG/1 ML VIAL IV PRN ×2 (11:45→17:18)
[2020-05-16] MEDS: ALBUTEROL/IPRATROPIUM 3 ML NEB RESP TX SCH ×2 (12:26→19:31)
[2020-05-16] MEDS: ATORVASTATIN 20 MG TABLET PO SCH (20:38)
[2020-05-16] MEDS: SERTRALINE 100 MG TABLET PO SCH (20:38)
[2020-05-16] MEDS ORDERED: QUEtiapine 25 MG TABLET PO SCH (21:00)
[2020-05-17] MEDS: INSULIN REGULAR 100 UNIT/ML SUBCUT SCH ×4 (00:01→17:04)
[2020-05-17] MEDS: traMADol 50 MG TABLET PO PRN ×4 (00:08→20:25)
[2020-05-17] MEDS: ENOXAPARIN 30 MG/0.3 ML SYRINGE SUBCUT SCH ×2 (00:09→11:43)
[2020-05-17] MEDS: MEROPENEM 500 MG in SODIUM CHLORIDE 0.9% 100 ML IV SCH ×4 (00:09→17:05)
[2020-05-17] MEDS: ALBUTEROL/IPRATROPIUM 3 ML NEB RESP TX SCH ×4 (00:21→19:00)
[2020-05-17] MEDS: LORazepam 2 MG/1 ML VIAL IV PRN (02:05)
[2020-05-17 04:37] LABS: Basophils % 0.3 % (0.0-0.8); Eosinophils # 0.1 10*3/uL (0.0-0.87); Hematocrit 27.3 VOL% (35.7-47.0); Hemoglobin 8.3 GM/DL (12.0-16.0); Immature Granulocytes % 1.6 %; Immature Granulocytes Absolute 0.17 #; Lymphocytes % 8.8 % (21.3-54.2); Mean Corpuscular HGB Conc 30.4 GM/DL (32-36); Mean Corpuscular Volume 96.5 FL (87-102); Mean Platelet Volume 9.8 FL (9.6-12.0); Monocytes % 6.1 % (1.7-12.7); NRBC # 0.02 10*3/uL; Neutrophils % 82.2 % (38.7-73.9); Platelet Count 236 T/CUMM (130-400); Red Blood Count 2.83 MC/CUMM (3.8-5.5); Red Cell Distribution Width 16.6 % (9.3-17.3); White Blood Count 10.9 T/CUMM (4-12)
[2020-05-17 04:59] LABS: Calcium 8.6 MG/DL (8.5-10.1); Osmolality,Calculated 295.3 MOS/KG (273-304)
[2020-05-17 05:09] LABS: ABG Base Excess 5.1 MMOL/L (-2.5-2.5); ABG HCO3 29.1 MMOL/L (20-26); ABG PCO2 46.2 MM HG (35-48); ABG PH 7.425 (7.35-7.45); ABG TCO2 27.2 MMOL/L (23-27); Allen Test Positive; Pt O2 Delivery Device Venturi Mask
[2020-05-17] MEDS: ZINC SULFATE 220 MG CAPSULE PO SCH (08:11)
[2020-05-17] MEDS: ASPIRIN CHEW 81 MG TABLET PO SCH (08:11)
[2020-05-17] MEDS: ASCORBIC ACID 500 MG TABLET PO SCH ×2 (08:11→20:26)
[2020-05-17] MEDS: CHOLECALCIFEROL 5,000 UNIT TABLET PO SCH (08:11)
[2020-05-17] MEDS: SENNA 8.6 MG TABLET PO SCH ×2 (08:12→20:26)
[2020-05-17] MEDS: DEXAMETHASONE 4 MG/1 ML VIAL IV SCH (08:12)
[2020-05-17] MEDS: CETIRIZINE 10 MG TABLET PO SCH (08:12)
[2020-05-17] MEDS: PANTOPRAZOLE 40 MG VIAL IV SCH ×2 (08:13→20:25)
[2020-05-17] MEDS: POTASSIUM CHLORIDE 20 MEQ/15 ML UDCUP PER TUBE PRN ×3 (08:17→14:11)
[2020-05-17] MEDS: GABAPENTIN 50 MG/ML 30 ML/BOTTLE PO SCH ×3 (08:19→20:25)
[2020-05-17] MEDS: ZINC OXIDE PASTE 113 GM TUBE TOP SCH ×2 (08:20→20:26)
[2020-05-17] MEDS: DESITIN 4OZ/NYSTATIN 15 GRAM MIXTURE PASTE TOP SCH ×2 (08:20→20:26)
[2020-05-17] MEDS ORDERED: POTASSIUM PHOSPHATE 30 MMOL in SODIUM CHLORIDE 0.9% 250 ML IV ONE (12:00)
[2020-05-17] MEDS: clonazePAM 0.5 MG TABLET PO SCH ×3 (12:28→20:26)
[2020-05-17] MEDS ORDERED: clonazePAM 0.5 MG TABLET PO SCH (15:00)
[2020-05-17] MEDS: SERTRALINE 100 MG TABLET PO SCH (20:26)
[2020-05-17] MEDS: ATORVASTATIN 20 MG TABLET PO SCH (20:26)
[2020-05-18] MEDS: MEROPENEM 500 MG in SODIUM CHLORIDE 0.9% 100 ML IV SCH ×4 (00:32→18:20)
[2020-05-18] MEDS: ENOXAPARIN 30 MG/0.3 ML SYRINGE SUBCUT SCH ×2 (00:33→12:28)
[2020-05-18] MEDS: INSULIN REGULAR 100 UNIT/ML SUBCUT SCH ×5 (00:33→23:35)
[2020-05-18] MEDS: ALBUTEROL/IPRATROPIUM 3 ML NEB RESP TX SCH ×4 (01:04→19:33)
[2020-05-18] MEDS ORDERED: LORazepam 2 MG/1 ML VIAL IV ONE (02:11)
[2020-05-18] MEDS: traMADol 50 MG TABLET PO PRN ×3 (02:30→14:08)
[2020-05-18 04:32] LABS: ABG Base Excess 5.3 MMOL/L (-2.5-2.5); ABG HCO3 31.2 MMOL/L (20-26); ABG Oxygen Saturation 98.4 % (95-100); ABG PCO2 52.7 MM HG (35-48); ABG PO2 134.7 MM HG (80-95); ABG TCO2 32.8 MMOL/L (23-27); Allen Test Positive
[2020-05-18] MEDS: CHOLECALCIFEROL 5,000 UNIT TABLET PO SCH (08:56)
[2020-05-18] MEDS: clonazePAM 0.5 MG TABLET PO SCH ×3 (08:57→20:51)
[2020-05-18] MEDS: SENNA 8.6 MG TABLET PO SCH ×2 (08:59→20:51)
[2020-05-18] MEDS: ASCORBIC ACID 500 MG TABLET PO SCH ×2 (09:01→20:51)
[2020-05-18] MEDS: ZINC SULFATE 220 MG CAPSULE PO SCH (09:04)
[2020-05-18] MEDS: CETIRIZINE 10 MG TABLET PO SCH (09:05)
[2020-05-18] MEDS: PANTOPRAZOLE 40 MG VIAL IV SCH ×2 (09:07→20:50)
[2020-05-18] MEDS: DEXAMETHASONE 4 MG/1 ML VIAL IV SCH (09:08)
[2020-05-18] MEDS: ASPIRIN CHEW 81 MG TABLET PO SCH (09:11)
[2020-05-18] MEDS: GABAPENTIN 50 MG/ML 30 ML/BOTTLE PO SCH ×3 (09:15→20:51)
[2020-05-18] MEDS: ZINC OXIDE PASTE 113 GM TUBE TOP SCH ×2 (09:15→20:51)
[2020-05-18] MEDS: DESITIN 4OZ/NYSTATIN 15 GRAM MIXTURE PASTE TOP SCH ×2 (09:15→20:52)
[2020-05-18] MEDS: QUEtiapine 25 MG TABLET PO SCH (17:00)
[2020-05-18] MEDS: SERTRALINE 100 MG TABLET PO SCH (20:51)
[2020-05-18] MEDS: ATORVASTATIN 20 MG TABLET PO SCH (20:51)
[2020-05-19] MEDS: ALBUTEROL/IPRATROPIUM 3 ML NEB RESP TX SCH ×4 (01:10→19:32)
[2020-05-19] MEDS: traMADol 50 MG TABLET PO PRN (01:42)
[2020-05-19] MEDS: ENOXAPARIN 30 MG/0.3 ML SYRINGE SUBCUT SCH ×2 (03:31→14:35)
[2020-05-19 03:57] LABS: ABG Base Excess 7.6 MMOL/L (-2.5-2.5); ABG Oxygen Saturation 92.8 % (95-100); ABG PCO2 58.6 MM HG (35-48); ABG PH 7.381 (7.35-7.45); ABG PO2 69.6 MM HG (80-95); ABG TCO2 35.8 MMOL/L (23-27)
[2020-05-19 04:30] LABS: Basophils % 0.1 % (0.0-0.8); Eosinophils # 0.1 10*3/uL (0.0-0.87); Eosinophils % 0.5 % (0.00-10.9); Hematocrit 29.1 VOL% (35.7-47.0); Hemoglobin 8.7 GM/DL (12.0-16.0); Immature Granulocytes % 1.3 %; Immature Granulocytes Absolute 0.28 #; Lymphocytes # 1.2 10*3/uL (1.4-4.0); Lymphocytes % 5.4 % (21.3-54.2); Mean Corpuscular HGB Conc 29.9 GM/DL (32-36); Mean Platelet Volume 9.5 FL (9.6-12.0); Neutrophils % 86.7 % (38.7-73.9); Platelet Count 340 T/CUMM (130-400); Red Cell Distribution Width 16.8 % (9.3-17.3); White Blood Count 21.7 T/CUMM (4-12)
[2020-05-19 04:52] LABS: Bilirubin,Total 0.8 MG/DL (0.2-1.0); Calcium 9.3 MG/DL (8.5-10.1); Osmolality,Calculated 294.4 MOS/KG (273-304); Total Protein 6.4 G/DL (6.4-8.3)
[2020-05-19] MEDS: QUEtiapine 25 MG TABLET PO PRN (04:58)
[2020-05-19 05:00] LABS: Lymphocytes 4 % (20-55); Platelet Estimate Adequate; Segmented Neutrophils 92 % (50-85); Total Cells Counted 100
[2020-05-19 05:01] LABS: Hypochromasia 1+; Microcytosis Slight
[2020-05-19] MEDS: INSULIN REGULAR 100 UNIT/ML SUBCUT SCH ×3 (05:09→17:08)
[2020-05-19] MEDS: MEROPENEM 500 MG in SODIUM CHLORIDE 0.9% 100 ML IV SCH ×4 (06:58→20:52)
[2020-05-19] MEDS: clonazePAM 0.5 MG TABLET PO SCH ×4 (07:43→20:21)
[2020-05-19] MEDS ORDERED: SUCCINYLCHOLINE 200 MG/10 ML VIAL ONE (08:57)
[2020-05-19] MEDS ORDERED: ETOMIDATE 20 MG/10 ML VIAL IV ONE ×3 (08:57→09:09)
[2020-05-19] MEDS ORDERED: SUCCINYLCHOLINE 200 MG/10 ML VIAL IV ONE ×2 (09:01→09:10)
[2020-05-19] MEDS ORDERED: SODIUM CHLORIDE 0.9% 500 ML IV ONE (09:26)
[2020-05-19 09:47] LABS: ABG Base Excess 6.6 MMOL/L (-2.5-2.5); ABG HCO3 30.5 MMOL/L (20-26); ABG PCO2 60.7 MM HG (35-48); ABG TCO2 31.4 MMOL/L (23-27)
[2020-05-19] MEDS: ZINC SULFATE 220 MG CAPSULE PO SCH (10:16)
[2020-05-19] MEDS: ASPIRIN CHEW 81 MG TABLET PO SCH (10:16)
[2020-05-19] MEDS: ASCORBIC ACID 500 MG TABLET PO SCH ×2 (10:16→20:21)
[2020-05-19] MEDS: CETIRIZINE 10 MG TABLET PO SCH (10:17)
[2020-05-19] MEDS: DESITIN 4OZ/NYSTATIN 15 GRAM MIXTURE PASTE TOP SCH ×2 (10:17→20:21)
[2020-05-19] MEDS: CHOLECALCIFEROL 5,000 UNIT TABLET PO SCH (10:17)
[2020-05-19] MEDS: PANTOPRAZOLE 40 MG VIAL IV SCH ×2 (10:17→20:21)
[2020-05-19] MEDS: GABAPENTIN 50 MG/ML 30 ML/BOTTLE PO SCH ×3 (10:17→20:21)
[2020-05-19] MEDS: DEXAMETHASONE 4 MG/1 ML VIAL IV SCH (10:18)
[2020-05-19] MEDS: ZINC OXIDE PASTE 113 GM TUBE TOP SCH ×2 (10:18→20:22)
[2020-05-19] MEDS: SENNA 8.6 MG TABLET PO SCH ×2 (10:18→20:22)
[2020-05-19 11:17] LABS: ABG Base Excess 7.8 MMOL/L (-2.5-2.5); ABG HCO3 31.6 MMOL/L (20-26); ABG Oxygen Saturation 96.2 % (95-100); ABG PCO2 46.4 MM HG (35-48); ABG PH 7.454 (7.35-7.45); ABG PO2 77.1 MM HG (80-95); ABG TCO2 30.6 MMOL/L (23-27)
[2020-05-19] MEDS ORDERED: POTASSIUM PHOSPHATE 30 MMOL in SODIUM CHLORIDE 0.9% 250 ML IV ONE (15:00)
[2020-05-19] MEDS: VANCOMYCIN INJ 1,000 MG in SODIUM CHLORIDE 0.9% 250 ML IV SCH (15:09)
[2020-05-19] MEDS: QUEtiapine 25 MG TABLET PO SCH (16:07)
[2020-05-19 16:35] LABS: Bacteria,Urine Few /HPF (Few); Bilirubin,Urine Negative (Negative); Blood, Urine Small mg/dL (Negative); Glucose,Urine (UA) Negative (Negative); Ketones,Urine Negative (Negative); Mucus,Urine Many /LPF (Occasional); Nitrite,Urine Negative (Negative); Protein,Urine 100 MG/DL; RBC,Urine 64 /HPF (0-4); Urine Appearance CLOUDY (Clear); Urine Color Amber (Yellow); Urine Specific Gravity 1.021 (1.001-1.035); WBC,Urine 140 /HPF (0-6)
[2020-05-19] MEDS: PHENYLEPHRINE DRIP 40 MG/250 ML PREMIX IV PRN (16:35)
[2020-05-19] MEDS ORDERED: POTASSIUM CHLORIDE RIDER 10 MEQ in PREMIX 1 EACH IV PRN (18:19)
[2020-05-19] MEDS: SERTRALINE 100 MG TABLET PO SCH (20:21)
[2020-05-19] MEDS: ATORVASTATIN 20 MG TABLET PO SCH (20:21)
[2020-05-20] MEDS: VANCOMYCIN INJ 1,000 MG in SODIUM CHLORIDE 0.9% 250 ML IV SCH ×2 (00:48→12:50)
[2020-05-20] MEDS: INSULIN REGULAR 100 UNIT/ML SUBCUT SCH ×4 (00:50→18:04)
[2020-05-20] MEDS: ENOXAPARIN 30 MG/0.3 ML SYRINGE SUBCUT SCH ×2 (00:50→12:50)
[2020-05-20] MEDS: ALBUTEROL/IPRATROPIUM 3 ML NEB RESP TX SCH ×5 (01:47→20:49)
[2020-05-20] MEDS: PHENYLEPHRINE DRIP 40 MG/250 ML PREMIX IV PRN ×3 (01:48→21:29)
[2020-05-20] MEDS: MEROPENEM 500 MG in SODIUM CHLORIDE 0.9% 100 ML IV SCH ×4 (02:02→18:20)
[2020-05-20 04:56] LABS: Basophils % 0.2 % (0.0-0.8); Eosinophils # 0.3 10*3/uL (0.0-0.87); Eosinophils % 1.7 % (0.00-10.9); Hematocrit 22.2 VOL% (35.7-47.0); Hemoglobin 6.8 GM/DL (12.0-16.0); Immature Granulocytes % 1.7 %; Immature Granulocytes Absolute 0.31 #; Lymphocytes # 1.9 10*3/uL (1.4-4.0); Lymphocytes % 10.1 % (21.3-54.2); Mean Corpuscular HGB Conc 30.6 GM/DL (32-36); Mean Corpuscular Volume 96.9 FL (87-102); Mean Platelet Volume 9.4 FL (9.6-12.0); Monocytes % 5.8 % (1.7-12.7); Neutrophils % 80.5 % (38.7-73.9); Platelet Count 327 T/CUMM (130-400); Red Blood Count 2.29 MC/CUMM (3.8-5.5); White Blood Count 18.3 T/CUMM (4-12)
[2020-05-20 05:20] LABS: ABG Base Excess 5.9 MMOL/L (-2.5-2.5); ABG HCO3 29.8 MMOL/L (20-26); ABG PCO2 41.7 MM HG (35-48); ABG PH 7.467 (7.35-7.45); ABG TCO2 28.2 MMOL/L (23-27); Allen Test Positive; Pt O2 Delivery Device Ventilator
[2020-05-20 05:21] LABS: Alanine Aminotransferase 23 U/L (13-56); Albumin 2.2 G/DL (3.4-5.0); Alkaline Phosphatase 108 U/L (45-117); Aspartate Amino Transferase 16 U/L (0-37); Blood Urea Nitrogen 14 MG/DL (7-18); Calcium 8.3 MG/DL (8.5-10.1); Estimated Glom Filtration Rate 124 ML/MIN; Glucose 110 MG/DL (74-106); Osmolality,Calculated 289.7 MOS/KG (273-304)
[2020-05-20] MEDS ORDERED: SODIUM CHLORIDE 0.9% 1,000 ML IV PRN (08:39)
[2020-05-20] MEDS: ASCORBIC ACID 500 MG TABLET PO SCH ×2 (08:50→20:52)
[2020-05-20] MEDS: ZINC SULFATE 220 MG CAPSULE PO SCH (08:50)
[2020-05-20] MEDS: CETIRIZINE 10 MG TABLET PO SCH (08:50)
[2020-05-20] MEDS: CHOLECALCIFEROL 5,000 UNIT TABLET PO SCH (08:51)
[2020-05-20] MEDS: SENNA 8.6 MG TABLET PO SCH ×2 (08:51→20:52)
[2020-05-20] MEDS: ASPIRIN CHEW 81 MG TABLET PO SCH (08:51)
[2020-05-20] MEDS: ZINC OXIDE PASTE 113 GM TUBE TOP SCH ×2 (08:52→20:52)
[2020-05-20] MEDS: clonazePAM 0.5 MG TABLET PO SCH ×3 (08:52→20:52)
[2020-05-20] MEDS: DESITIN 4OZ/NYSTATIN 15 GRAM MIXTURE PASTE TOP SCH ×2 (08:52→20:52)
[2020-05-20] MEDS: PANTOPRAZOLE 40 MG VIAL IV SCH ×2 (08:52→20:15)
[2020-05-20] MEDS: GABAPENTIN 50 MG/ML 30 ML/BOTTLE PO SCH ×3 (08:52→20:52)
[2020-05-20] MEDS: DEXAMETHASONE 4 MG/1 ML VIAL IV SCH (09:00)
[2020-05-20] MEDS ORDERED: MAGNESIUM SULF RIDER 2 GM in PREMIX 1 EACH IV ONE (12:00)
[2020-05-20] MEDS: FLUCONAZOLE INJ 100 MG in IV BAG 1 EACH IV SCH (12:50)
[2020-05-20 13:14] LABS: Hematocrit 26.1 VOL% (35.7-47.0)
[2020-05-20] MEDS: QUEtiapine 25 MG TABLET PO SCH (16:18)
[2020-05-20] MEDS: SERTRALINE 100 MG TABLET PO SCH (20:52)
[2020-05-20] MEDS: ATORVASTATIN 20 MG TABLET PO SCH (20:52)
[2020-05-21] MEDS: VANCOMYCIN INJ 1,000 MG in SODIUM CHLORIDE 0.9% 250 ML IV SCH ×3 (00:05→23:29)
[2020-05-21] MEDS: ALBUTEROL/IPRATROPIUM 3 ML NEB RESP TX SCH ×5 (00:30→20:07)
[2020-05-21] MEDS: INSULIN REGULAR 100 UNIT/ML SUBCUT SCH ×4 (01:11→17:44)
[2020-05-21] MEDS: ENOXAPARIN 30 MG/0.3 ML SYRINGE SUBCUT SCH ×2 (01:11→12:25)
[2020-05-21] MEDS: MEROPENEM 500 MG in SODIUM CHLORIDE 0.9% 100 ML IV SCH ×4 (01:26→18:17)
[2020-05-21 03:09] LABS: Basophils % 0.1 % (0.0-0.8); Eosinophils % 0.2 % (0.00-10.9); Hematocrit 22.8 VOL% (35.7-47.0); Hemoglobin 6.7 GM/DL (12.0-16.0); Immature Granulocytes % 1.5 %; Immature Granulocytes Absolute 0.27 #; Lymphocytes # 1.1 10*3/uL (1.4-4.0); Lymphocytes % 6.4 % (21.3-54.2); Mean Corpuscular HGB Conc 29.4 GM/DL (32-36); Mean Corpuscular Volume 99.6 FL (87-102); Mean Platelet Volume 9.9 FL (9.6-12.0); Monocytes % 5.1 % (1.7-12.7); NRBC # 0.04 10*3/uL; Neutrophils % 86.7 % (38.7-73.9); Platelet Count 374 T/CUMM (130-400); Red Blood Count 2.29 MC/CUMM (3.8-5.5); Red Cell Distribution Width 17.4 % (9.3-17.3); White Blood Count 17.5 T/CUMM (4-12)
[2020-05-21 03:25] LABS: Albumin 2.1 G/DL (3.4-5.0); Bilirubin,Total 0.6 MG/DL (0.2-1.0); Calcium 8.1 MG/DL (8.5-10.1); Osmolality,Calculated 292.7 MOS/KG (273-304); Total Protein 5.3 G/DL (6.4-8.3)
[2020-05-21] MEDS: PHENYLEPHRINE DRIP 40 MG/250 ML PREMIX IV PRN ×2 (04:33→12:09)
[2020-05-21 04:58] LABS: Allen Test Positive; Pt O2 Delivery Device Ventilator
[2020-05-21 05:01] LABS: ABG Base Excess 5.7 MMOL/L (-2.5-2.5); ABG HCO3 29.6 MMOL/L (20-26); ABG Oxygen Saturation 97.7 % (95-100); ABG PCO2 40.4 MM HG (35-48); ABG PH 7.483 (7.35-7.45); ABG PO2 99.9 MM HG (80-95); ABG TCO2 30.9 MMOL/L (23-27)
[2020-05-21] MEDS: ASPIRIN CHEW 81 MG TABLET PO SCH (08:21)
[2020-05-21] MEDS: ZINC SULFATE 220 MG CAPSULE PO SCH (08:22)
[2020-05-21] MEDS: CETIRIZINE 10 MG TABLET PO SCH (08:22)
[2020-05-21] MEDS: ASCORBIC ACID 500 MG TABLET PO SCH ×2 (08:22→20:05)
[2020-05-21] MEDS: SENNA 8.6 MG TABLET PO SCH ×2 (08:22→20:05)
[2020-05-21] MEDS: GABAPENTIN 50 MG/ML 30 ML/BOTTLE PO SCH ×3 (08:23→20:06)
[2020-05-21] MEDS: clonazePAM 0.5 MG TABLET PO SCH ×3 (08:23→20:05)
[2020-05-21] MEDS: ZINC OXIDE PASTE 113 GM TUBE TOP SCH ×2 (08:23→20:07)
[2020-05-21] MEDS: PANTOPRAZOLE 40 MG VIAL IV SCH ×2 (08:23→20:06)
[2020-05-21] MEDS: CHOLECALCIFEROL 5,000 UNIT TABLET PO SCH (08:24)
[2020-05-21] MEDS: DEXAMETHASONE 4 MG/1 ML VIAL IV SCH (08:24)
[2020-05-21] MEDS: DESITIN 4OZ/NYSTATIN 15 GRAM MIXTURE PASTE TOP SCH ×2 (08:24→20:07)
[2020-05-21] MEDS: FLUCONAZOLE INJ 100 MG in IV BAG 1 EACH IV SCH (12:05)
[2020-05-21] MEDS: traMADol 50 MG TABLET PO PRN (14:20)
[2020-05-21] MEDS: QUEtiapine 25 MG TABLET PO SCH (16:39)
[2020-05-21] MEDS: ATORVASTATIN 20 MG TABLET PO SCH (20:05)
[2020-05-21] MEDS: SERTRALINE 100 MG TABLET PO SCH (20:05)
[2020-05-22] MEDS: MEROPENEM 500 MG in SODIUM CHLORIDE 0.9% 100 ML IV SCH ×5 (00:30→23:42)
[2020-05-22] MEDS: ALBUTEROL/IPRATROPIUM 3 ML NEB RESP TX SCH ×4 (00:42→19:11)
[2020-05-22] MEDS: ENOXAPARIN 30 MG/0.3 ML SYRINGE SUBCUT SCH ×3 (00:45→23:42)
[2020-05-22] MEDS: INSULIN REGULAR 100 UNIT/ML SUBCUT SCH ×5 (00:45→23:34)
[2020-05-22 04:05] LABS: ABG Base Excess 5.2 MMOL/L (-2.5-2.5); ABG HCO3 29.1 MMOL/L (20-26); ABG Oxygen Saturation 99.2 % (95-100); ABG PCO2 37.8 MM HG (35-48); Allen Test Positive; Pt O2 Delivery Device Ventilator
[2020-05-22 04:28] LABS: Basophils % 0.1 % (0.0-0.8); Eosinophils % 0.2 % (0.00-10.9); Hematocrit 24.8 VOL% (35.7-47.0); Hemoglobin 7.6 GM/DL (12.0-16.0); Immature Granulocytes % 2.2 %; Immature Granulocytes Absolute 0.24 #; Lymphocytes # 1.1 10*3/uL (1.4-4.0); Lymphocytes % 10.5 % (21.3-54.2); Mean Corpuscular HGB Conc 30.6 GM/DL (32-36); Mean Corpuscular Volume 95.8 FL (87-102); Mean Platelet Volume 9.9 FL (9.6-12.0); Monocytes % 6.6 % (1.7-12.7); NRBC # 0.07 10*3/uL; Neutrophils % 80.4 % (38.7-73.9); Platelet Count 272 T/CUMM (130-400); Red Blood Count 2.59 MC/CUMM (3.8-5.5); Red Cell Distribution Width 17.7 % (9.3-17.3); White Blood Count 10.8 T/CUMM (4-12)
[2020-05-22 04:58] LABS: Alanine Aminotransferase 19 U/L (13-56); Alkaline Phosphatase 102 U/L (45-117); Aspartate Amino Transferase 8 U/L (0-37); Blood Urea Nitrogen 25 MG/DL (7-18); Calcium 8.4 MG/DL (8.5-10.1); Estimated Glom Filtration Rate 124 ML/MIN; Glucose 122 MG/DL (74-106); Osmolality,Calculated 298.3 MOS/KG (273-304); Total Protein 5.1 G/DL (6.4-8.3)
[2020-05-22] MEDS: POTASSIUM CHLORIDE RIDER 20 MEQ in PREMIX 1 EACH IV PRN (05:09)
[2020-05-22] MEDS: ASPIRIN CHEW 81 MG TABLET PO SCH (08:26)
[2020-05-22] MEDS: CHOLECALCIFEROL 5,000 UNIT TABLET PO SCH (08:26)
[2020-05-22] MEDS: ASCORBIC ACID 500 MG TABLET PO SCH ×2 (08:26→20:44)
[2020-05-22] MEDS: CETIRIZINE 10 MG TABLET PO SCH (08:26)
[2020-05-22] MEDS: PANTOPRAZOLE 40 MG VIAL IV SCH ×2 (08:26→20:45)
[2020-05-22] MEDS: SENNA 8.6 MG TABLET PO SCH ×2 (08:26→20:58)
[2020-05-22] MEDS: clonazePAM 0.5 MG TABLET PO SCH ×3 (08:27→22:42)
[2020-05-22] MEDS: ZINC SULFATE 220 MG CAPSULE PO SCH (08:27)
[2020-05-22] MEDS: DEXAMETHASONE 4 MG/1 ML VIAL IV SCH (08:27)
[2020-05-22] MEDS: ZINC OXIDE PASTE 113 GM TUBE TOP SCH ×2 (09:32→20:46)
[2020-05-22] MEDS: GABAPENTIN 50 MG/ML 30 ML/BOTTLE PO SCH ×3 (09:32→20:44)
[2020-05-22] MEDS: DESITIN 4OZ/NYSTATIN 15 GRAM MIXTURE PASTE TOP SCH ×2 (09:32→20:45)
[2020-05-22] MEDS: FLUCONAZOLE INJ 100 MG in IV BAG 1 EACH IV SCH (09:33)
[2020-05-22] MEDS: VANCOMYCIN INJ 1,000 MG in SODIUM CHLORIDE 0.9% 250 ML IV SCH ×2 (10:47→22:35)
[2020-05-22] MEDS: QUEtiapine 25 MG TABLET PO SCH (15:20)
[2020-05-22] MEDS: SERTRALINE 100 MG TABLET PO SCH (20:44)
[2020-05-22] MEDS: ATORVASTATIN 20 MG TABLET PO SCH (20:45)
[2020-05-23] MEDS: ALBUTEROL/IPRATROPIUM 3 ML NEB RESP TX SCH ×4 (01:50→19:19)
[2020-05-23 03:39] LABS: Allen Test Positive; Pt O2 Delivery Device Ventilator
[2020-05-23 03:40] LABS: ABG Base Excess 4.9 MMOL/L (-2.5-2.5); ABG HCO3 28.8 MMOL/L (20-26); ABG Oxygen Saturation 97.3 % (95-100); ABG PCO2 37.2 MM HG (35-48); ABG PH 7.492 (7.35-7.45); ABG PO2 85.5 MM HG (80-95); ABG TCO2 26.6 MMOL/L (23-27)
[2020-05-23 04:17] LABS: Basophils % 0.1 % (0.0-0.8); Eosinophils # 0.1 10*3/uL (0.0-0.87); Eosinophils % 0.9 % (0.00-10.9); Hematocrit 24.9 VOL% (35.7-47.0); Hemoglobin 7.3 GM/DL (12.0-16.0); Immature Granulocytes % 4.2 %; Immature Granulocytes Absolute 0.39 #; Lymphocytes # 1.1 10*3/uL (1.4-4.0); Lymphocytes % 11.7 % (21.3-54.2); Mean Corpuscular HGB Conc 29.3 GM/DL (32-36); Mean Platelet Volume 9.7 FL (9.6-12.0); Neutrophils % 78.1 % (38.7-73.9); Platelet Count 256 T/CUMM (130-400); Red Blood Count 2.54 MC/CUMM (3.8-5.5); Red Cell Distribution Width 17.4 % (9.3-17.3); White Blood Count 9.3 T/CUMM (4-12)
[2020-05-23] MEDS: MORPHINE 4 MG/1 ML VIAL IV PRN (04:34)
[2020-05-23 04:35] LABS: Albumin 2.1 G/DL (3.4-5.0); Bilirubin,Total 0.7 MG/DL (0.2-1.0); Calcium 8.6 MG/DL (8.5-10.1); Osmolality,Calculated 290.8 MOS/KG (273-304); Total Protein 5.1 G/DL (6.4-8.3)
[2020-05-23] MEDS: INSULIN REGULAR 100 UNIT/ML SUBCUT SCH ×3 (05:32→17:16)
[2020-05-23] MEDS: MEROPENEM 500 MG in SODIUM CHLORIDE 0.9% 100 ML IV SCH ×3 (05:34→17:16)
[2020-05-23] MEDS: DEXAMETHASONE 4 MG/1 ML VIAL IV SCH (08:00)
[2020-05-23] MEDS: GABAPENTIN 50 MG/ML 30 ML/BOTTLE PO SCH ×3 (08:00→21:01)
[2020-05-23] MEDS: ASCORBIC ACID 500 MG TABLET PO SCH ×2 (08:01→21:01)
[2020-05-23] MEDS: CHOLECALCIFEROL 5,000 UNIT TABLET PO SCH (08:01)
[2020-05-23] MEDS: ASPIRIN CHEW 81 MG TABLET PO SCH (08:02)
[2020-05-23] MEDS: CETIRIZINE 10 MG TABLET PO SCH (08:02)
[2020-05-23] MEDS: ZINC SULFATE 220 MG CAPSULE PO SCH (08:02)
[2020-05-23] MEDS: clonazePAM 0.5 MG TABLET PO SCH ×2 (08:02→21:01)
[2020-05-23] MEDS: ZINC OXIDE PASTE 113 GM TUBE TOP SCH ×2 (08:03→21:01)
[2020-05-23] MEDS: PANTOPRAZOLE 40 MG VIAL IV SCH ×2 (08:03→21:41)
[2020-05-23] MEDS: DESITIN 4OZ/NYSTATIN 15 GRAM MIXTURE PASTE TOP SCH ×2 (08:04→21:01)
[2020-05-23] MEDS: SENNA 8.6 MG TABLET PO SCH ×2 (08:04→20:33)
[2020-05-23] MEDS: ENOXAPARIN 30 MG/0.3 ML SYRINGE SUBCUT SCH (11:04)
[2020-05-23] MEDS: FLUCONAZOLE INJ 100 MG in IV BAG 1 EACH IV SCH (12:54)
[2020-05-23] MEDS: QUEtiapine 25 MG TABLET PO SCH (15:12)
[2020-05-23] MEDS: VANCOMYCIN INJ 1,000 MG in SODIUM CHLORIDE 0.9% 250 ML IV SCH (17:16)
[2020-05-23] MEDS: SERTRALINE 100 MG TABLET PO SCH (21:01)
[2020-05-23] MEDS: ATORVASTATIN 20 MG TABLET PO SCH (21:01)
[2020-05-24] MEDS: MEROPENEM 500 MG in SODIUM CHLORIDE 0.9% 100 ML IV SCH ×4 (00:48→17:57)
[2020-05-24] MEDS: ENOXAPARIN 30 MG/0.3 ML SYRINGE SUBCUT SCH ×2 (00:48→12:00)
[2020-05-24] MEDS: INSULIN REGULAR 100 UNIT/ML SUBCUT SCH ×4 (00:48→17:57)
[2020-05-24] MEDS: ALBUTEROL/IPRATROPIUM 3 ML NEB RESP TX SCH ×4 (02:18→19:30)
[2020-05-24 04:22] LABS: ABG Base Excess 5.4 MMOL/L (-2.5-2.5); ABG HCO3 28.6 MMOL/L (20-26); ABG Oxygen Saturation 97.4 % (95-100); ABG PCO2 36.6 MM HG (35-48); ABG PH 7.511 (7.35-7.45); ABG PO2 100.1 MM HG (80-95); ABG TCO2 29.7 MMOL/L (23-27); Allen Test Positive; Pt O2 Delivery Device Ventilator
[2020-05-24 04:53] LABS: Basophils % 0.1 % (0.0-0.8); Eosinophils # 0.1 10*3/uL (0.0-0.87); Eosinophils % 1.8 % (0.00-10.9); Hematocrit 25.9 VOL% (35.7-47.0); Hemoglobin 7.9 GM/DL (12.0-16.0); Immature Granulocytes % 5.1 %; Lymphocytes % 13.1 % (21.3-54.2); Mean Corpuscular HGB Conc 30.5 GM/DL (32-36); Mean Corpuscular Volume 96.3 FL (87-102); Mean Platelet Volume 9.4 FL (9.6-12.0); Monocytes % 5.3 % (1.7-12.7); NRBC # 0.07 10*3/uL; Neutrophils % 74.6 % (38.7-73.9); Platelet Count 241 T/CUMM (130-400); Red Blood Count 2.69 MC/CUMM (3.8-5.5); Red Cell Distribution Width 17.1 % (9.3-17.3); White Blood Count 7.9 T/CUMM (4-12)
[2020-05-24 05:12] LABS: Albumin 2.1 G/DL (3.4-5.0); Bilirubin,Total 0.5 MG/DL (0.2-1.0); Calcium 8.3 MG/DL (8.5-10.1); Osmolality,Calculated 290.7 MOS/KG (273-304); Total Protein 5.1 G/DL (6.4-8.3)
[2020-05-24 05:16] LABS: Eosinophils 2 % (0-10); Hypochromasia 1+; Lymphocytes 14 % (20-55); Nucleated Red Blood Cells 1 (0-5); Ovalocytes Slight; Platelet Estimate Adequate; Segmented Neutrophils 81 % (50-85); Total Cells Counted 100
[2020-05-24] MEDS: POTASSIUM CHLORIDE RIDER 20 MEQ in PREMIX 1 EACH IV PRN (06:06)
[2020-05-24] MEDS: clonazePAM 0.5 MG TABLET PO SCH ×2 (08:04→20:22)
[2020-05-24] MEDS: SENNA 8.6 MG TABLET PO SCH ×3 (08:05→21:49)
[2020-05-24] MEDS: ASCORBIC ACID 500 MG TABLET PO SCH ×2 (08:05→20:23)
[2020-05-24] MEDS: CETIRIZINE 10 MG TABLET PO SCH (08:05)
[2020-05-24] MEDS: DEXAMETHASONE 4 MG/1 ML VIAL IV SCH (08:05)
[2020-05-24] MEDS: CHOLECALCIFEROL 5,000 UNIT TABLET PO SCH (08:05)
[2020-05-24] MEDS: ASPIRIN CHEW 81 MG TABLET PO SCH (08:05)
[2020-05-24] MEDS: ZINC SULFATE 220 MG CAPSULE PO SCH (08:05)
[2020-05-24] MEDS: PANTOPRAZOLE 40 MG VIAL IV SCH ×2 (08:06→20:23)
[2020-05-24] MEDS: DESITIN 4OZ/NYSTATIN 15 GRAM MIXTURE PASTE TOP SCH ×2 (08:06→20:24)
[2020-05-24] MEDS: ZINC OXIDE PASTE 113 GM TUBE TOP SCH ×2 (08:06→20:24)
[2020-05-24] MEDS: GABAPENTIN 50 MG/ML 30 ML/BOTTLE PO SCH ×3 (08:06→20:22)
[2020-05-24] MEDS: VANCOMYCIN INJ 1,000 MG in SODIUM CHLORIDE 0.9% 250 ML IV SCH (12:19)
[2020-05-24] MEDS: FLUCONAZOLE INJ 100 MG in IV BAG 1 EACH IV SCH (13:34)
[2020-05-24] MEDS: QUEtiapine 25 MG TABLET PO SCH (15:37)
[2020-05-24] MEDS: ATORVASTATIN 20 MG TABLET PO SCH (20:23)
[2020-05-24] MEDS: SERTRALINE 100 MG TABLET PO SCH (20:23)
[2020-05-25] MEDS: ENOXAPARIN 30 MG/0.3 ML SYRINGE SUBCUT SCH ×3 (00:10→12:10)
[2020-05-25] MEDS: ALBUTEROL/IPRATROPIUM 3 ML NEB RESP TX SCH ×4 (00:24→19:45)
[2020-05-25] MEDS: INSULIN REGULAR 100 UNIT/ML SUBCUT SCH ×5 (00:48→23:54)
[2020-05-25 04:37] LABS: Basophils % 0.1 % (0.0-0.8); Eosinophils # 0.2 10*3/uL (0.0-0.87); Eosinophils % 2.8 % (0.00-10.9); Hematocrit 26.9 VOL% (35.7-47.0); Hemoglobin 8.2 GM/DL (12.0-16.0); Immature Granulocytes % 5.4 %; Immature Granulocytes Absolute 0.37 #; Lymphocytes % 14.3 % (21.3-54.2); Mean Corpuscular HGB Conc 30.5 GM/DL (32-36); Mean Corpuscular Volume 95.7 FL (87-102); Mean Platelet Volume 9.3 FL (9.6-12.0); Monocytes % 4.4 % (1.7-12.7); NRBC # 0.06 10*3/uL; Platelet Count 232 T/CUMM (130-400); Red Blood Count 2.81 MC/CUMM (3.8-5.5); Red Cell Distribution Width 17.1 % (9.3-17.3); White Blood Count 6.8 T/CUMM (4-12)
[2020-05-25 04:56] LABS: Eosinophils 4 % (0-10); Hypochromasia 1+; Lymphocytes 12 % (20-55); Platelet Estimate Adequate; Segmented Neutrophils 82 % (50-85); Total Cells Counted 100
[2020-05-25 05:09] LABS: Allen Test Positive; Pt O2 Delivery Device Ventilator
[2020-05-25 05:10] LABS: ABG HCO3 28.5 MMOL/L (20-26); ABG Oxygen Saturation 97.8 % (95-100); ABG PCO2 37.7 MM HG (35-48); ABG PH 7.497 (7.35-7.45); ABG PO2 112.6 MM HG (80-95); ABG TCO2 29.7 MMOL/L (23-27)
[2020-05-25] MEDS: VANCOMYCIN INJ 1,000 MG in SODIUM CHLORIDE 0.9% 250 ML IV SCH ×2 (05:58→23:59)
[2020-05-25 06:02] LABS: Alanine Aminotransferase 23 U/L (13-56); Albumin 2.1 G/DL (3.4-5.0); Alkaline Phosphatase 105 U/L (45-117); Aspartate Amino Transferase 17 U/L (0-37); Blood Urea Nitrogen 22 MG/DL (7-18); Calcium 8.2 MG/DL (8.5-10.1); Estimated Glom Filtration Rate 122 ML/MIN; Glucose 95 MG/DL (74-106); Total Protein 5.1 G/DL (6.4-8.3)
[2020-05-25] MEDS: PANTOPRAZOLE 40 MG VIAL IV SCH ×2 (08:35→21:35)
[2020-05-25] MEDS: DEXAMETHASONE 4 MG/1 ML VIAL IV SCH (08:35)
[2020-05-25] MEDS: DESITIN 4OZ/NYSTATIN 15 GRAM MIXTURE PASTE TOP SCH ×2 (08:38→21:42)
[2020-05-25] MEDS: ZINC OXIDE PASTE 113 GM TUBE TOP SCH ×2 (08:38→21:42)
[2020-05-25] MEDS: POTASSIUM CHLORIDE RIDER 20 MEQ in PREMIX 1 EACH IV PRN (08:45)
[2020-05-25] MEDS: GABAPENTIN 50 MG/ML 30 ML/BOTTLE PO SCH ×4 (09:16→21:34)
[2020-05-25] MEDS: ASCORBIC ACID 500 MG TABLET PO SCH ×3 (09:16→21:35)
[2020-05-25] MEDS: SENNA 8.6 MG TABLET PO SCH ×3 (09:16→21:35)
[2020-05-25] MEDS: CHOLECALCIFEROL 5,000 UNIT TABLET PO SCH ×2 (09:16→12:14)
[2020-05-25] MEDS: clonazePAM 0.5 MG TABLET PO SCH ×3 (09:16→21:35)
[2020-05-25] MEDS: ASPIRIN CHEW 81 MG TABLET PO SCH ×2 (09:16→12:14)
[2020-05-25] MEDS: ZINC SULFATE 220 MG CAPSULE PO SCH ×2 (09:16→12:15)
[2020-05-25] MEDS: CETIRIZINE 10 MG TABLET PO SCH ×2 (09:17→12:16)
[2020-05-25] MEDS: FLUCONAZOLE INJ 100 MG in IV BAG 1 EACH IV SCH (13:11)
[2020-05-25] MEDS: traMADol 50 MG TABLET PO PRN ×2 (15:41→23:57)
[2020-05-25] MEDS: QUEtiapine 25 MG TABLET PO SCH (15:41)
[2020-05-25] MEDS: ATORVASTATIN 20 MG TABLET PO SCH (21:35)
[2020-05-25] MEDS: SERTRALINE 100 MG TABLET PO SCH (21:35)
[2020-05-26] MEDS: ALBUTEROL/IPRATROPIUM 3 ML NEB RESP TX SCH ×4 (02:20→19:57)
[2020-05-26 04:34] LABS: ABG Base Excess 3.9 MMOL/L (-2.5-2.5); ABG HCO3 27.9 MMOL/L (20-26); ABG Oxygen Saturation 99.5 % (95-100); ABG PCO2 36.7 MM HG (35-48); ABG PH 7.481 (7.35-7.45); ABG TCO2 24.6 MMOL/L (23-27); Allen Test Positive; Pt O2 Delivery Device Ventilator
[2020-05-26 04:43] LABS: Basophils % 0.3 % (0.0-0.8); Eosinophils # 0.2 10*3/uL (0.0-0.87); Eosinophils % 2.5 % (0.00-10.9); Hematocrit 26.8 VOL% (35.7-47.0); Hemoglobin 8.1 GM/DL (12.0-16.0); Immature Granulocytes % 5.1 %; Immature Granulocytes Absolute 0.37 #; Lymphocytes # 1.1 10*3/uL (1.4-4.0); Lymphocytes % 15.7 % (21.3-54.2); Mean Corpuscular HGB Conc 30.2 GM/DL (32-36); Mean Corpuscular Volume 96.4 FL (87-102); Mean Platelet Volume 9.7 FL (9.6-12.0); Monocytes % 4.9 % (1.7-12.7); NRBC # 0.02 10*3/uL; Neutrophils % 71.5 % (38.7-73.9); Platelet Count 242 T/CUMM (130-400); Red Blood Count 2.78 MC/CUMM (3.8-5.5); Red Cell Distribution Width 16.7 % (9.3-17.3); White Blood Count 7.2 T/CUMM (4-12)
[2020-05-26 04:56] LABS: Calcium 8.4 MG/DL (8.5-10.1); Osmolality,Calculated 285.3 MOS/KG (273-304)
[2020-05-26 05:05] LABS: Band Neutrophils 2 % (0-10); Eosinophils 1 % (0-10); Hypochromasia 1+; Lymphocytes 16 % (20-55); Segmented Neutrophils 75 % (50-85); Total Cells Counted 100
[2020-05-26 05:06] LABS: Anisocytosis 1+; Microcytosis 1+; Platelet Estimate Normal; Polychromasia Few
[2020-05-26] MEDS: INSULIN REGULAR 100 UNIT/ML SUBCUT SCH ×3 (06:21→17:50)
[2020-05-26] MEDS: POTASSIUM CHLORIDE RIDER 20 MEQ in PREMIX 1 EACH IV PRN (06:28)
[2020-05-26] MEDS: ZINC OXIDE PASTE 113 GM TUBE TOP SCH ×2 (08:01→20:33)
[2020-05-26] MEDS: clonazePAM 0.5 MG TABLET PO SCH ×2 (08:01→20:33)
[2020-05-26] MEDS: CETIRIZINE 10 MG TABLET PO SCH (08:01)
[2020-05-26] MEDS: ZINC SULFATE 220 MG CAPSULE PO SCH (08:01)
[2020-05-26] MEDS: ASPIRIN CHEW 81 MG TABLET PO SCH (08:01)
[2020-05-26] MEDS: CHOLECALCIFEROL 5,000 UNIT TABLET PO SCH (08:01)
[2020-05-26] MEDS: PANTOPRAZOLE 40 MG VIAL IV SCH ×2 (08:01→21:25)
[2020-05-26] MEDS: DESITIN 4OZ/NYSTATIN 15 GRAM MIXTURE PASTE TOP SCH ×2 (08:01→20:33)
[2020-05-26] MEDS: ASCORBIC ACID 500 MG TABLET PO SCH ×2 (08:01→20:33)
[2020-05-26] MEDS: DEXAMETHASONE 4 MG/1 ML VIAL IV SCH (08:03)
[2020-05-26] MEDS: GABAPENTIN 50 MG/ML 30 ML/BOTTLE PO SCH ×3 (08:05→20:33)
[2020-05-26] MEDS: SENNA 8.6 MG TABLET PO SCH ×2 (08:05→20:33)
[2020-05-26 11:19] LABS: Allen Test Positive; Pt O2 Delivery Device Ventilator
[2020-05-26 11:20] LABS: ABG Base Excess 1.6 MMOL/L (-2.5-2.5); ABG HCO3 26.1 MMOL/L (20-26); ABG Oxygen Saturation 95.9 % (95-100); ABG PCO2 40.7 MM HG (35-48); ABG PH 7.425 (7.35-7.45); ABG TCO2 27.4 MMOL/L (23-27)
[2020-05-26] MEDS: FLUCONAZOLE INJ 100 MG in IV BAG 1 EACH IV SCH (13:45)
[2020-05-26 14:18] LABS: ABG Base Excess 3.4 MMOL/L (-2.5-2.5); ABG HCO3 27.5 MMOL/L (20-26); ABG Oxygen Saturation 97.7 % (95-100); ABG PH 7.424 (7.35-7.45); ABG TCO2 25.6 MMOL/L (23-27)
[2020-05-26] MEDS: DEXMEDETOMIDINE 400 MCG in SODIUM CHLORIDE 0.9% 96 ML IV PRN (15:10)
[2020-05-26] MEDS: QUEtiapine 25 MG TABLET PO SCH (15:36)
[2020-05-26] MEDS: VANCOMYCIN INJ 1,000 MG in SODIUM CHLORIDE 0.9% 250 ML IV SCH (18:42)
[2020-05-26] MEDS: ATORVASTATIN 20 MG TABLET PO SCH (20:33)
[2020-05-26] MEDS: SERTRALINE 100 MG TABLET PO SCH (20:33)
[2020-05-26] MEDS: traMADol 50 MG TABLET PO PRN (21:26)
[2020-05-27] MEDS: INSULIN REGULAR 100 UNIT/ML SUBCUT SCH ×4 (00:13→17:27)
[2020-05-27] MEDS: ALBUTEROL/IPRATROPIUM 3 ML NEB RESP TX SCH ×4 (01:16→20:10)
[2020-05-27] MEDS: DEXMEDETOMIDINE 400 MCG in SODIUM CHLORIDE 0.9% 96 ML IV PRN ×2 (01:43→02:57)
[2020-05-27] MEDS: PHENYLEPHRINE DRIP 40 MG/250 ML PREMIX IV PRN (02:50)
[2020-05-27 03:31] LABS: Allen Test Positive; Pt O2 Delivery Device Ventilator
[2020-05-27 03:32] LABS: ABG Base Excess 4.8 MMOL/L (-2.5-2.5); ABG HCO3 28.7 MMOL/L (20-26); ABG Oxygen Saturation 96.9 % (95-100); ABG PCO2 46.1 MM HG (35-48); ABG PO2 88.8 MM HG (80-95); ABG TCO2 27.6 MMOL/L (23-27)
[2020-05-27 04:20] LABS: Basophils % 0.1 % (0.0-0.8); Eosinophils # 0.2 10*3/uL (0.0-0.87); Eosinophils % 2.3 % (0.00-10.9); Hematocrit 27.9 VOL% (35.7-47.0); Hemoglobin 8.4 GM/DL (12.0-16.0); Immature Granulocytes % 2.8 %; Lymphocytes # 1.7 10*3/uL (1.4-4.0); Lymphocytes % 16.4 % (21.3-54.2); Mean Corpuscular HGB Conc 30.1 GM/DL (32-36); Mean Corpuscular Volume 96.5 FL (87-102); Mean Platelet Volume 9.2 FL (9.6-12.0); Monocytes % 5.3 % (1.7-12.7); Neutrophils % 73.1 % (38.7-73.9); Platelet Count 244 T/CUMM (130-400); Red Blood Count 2.89 MC/CUMM (3.8-5.5); Red Cell Distribution Width 16.1 % (9.3-17.3); White Blood Count 10.6 T/CUMM (4-12)
[2020-05-27 04:40] LABS: Albumin 2.5 G/DL (3.4-5.0); Bilirubin,Total 0.8 MG/DL (0.2-1.0); Calcium 8.5 MG/DL (8.5-10.1); Osmolality,Calculated 286.1 MOS/KG (273-304); Total Protein 5.4 G/DL (6.4-8.3)
[2020-05-27] MEDS: VANCOMYCIN INJ 1,000 MG in SODIUM CHLORIDE 0.9% 250 ML IV SCH ×2 (06:15→17:57)
[2020-05-27] MEDS: POTASSIUM CHLORIDE RIDER 20 MEQ in PREMIX 1 EACH IV PRN ×2 (06:16→10:11)
[2020-05-27 08:19] LABS: ABG Base Excess 4.4 MMOL/L (-2.5-2.5); ABG HCO3 27.8 MMOL/L (20-26); ABG Oxygen Saturation 68.4 % (95-100); ABG PCO2 44.5 MM HG (35-48); ABG PH 7.427 (7.35-7.45); ABG TCO2 26.7 MMOL/L (23-27)
[2020-05-27 08:21] LABS: ABG PO2 39.8 MM HG (80-95)
[2020-05-27] MEDS ORDERED: SUCCINYLCHOLINE 200 MG/10 ML VIAL ONE (08:23)
[2020-05-27] MEDS ORDERED: ETOMIDATE 20 MG/10 ML VIAL IV ONE (08:23)
[2020-05-27] MEDS ORDERED: MAGNESIUM SULF RIDER 2 GM in PREMIX 1 EACH IV ONE (08:30)
[2020-05-27] MEDS: ZINC SULFATE 220 MG CAPSULE PO SCH (08:41)
[2020-05-27] MEDS: CHOLECALCIFEROL 5,000 UNIT TABLET PO SCH (08:41)
[2020-05-27] MEDS: CETIRIZINE 10 MG TABLET PO SCH (08:41)
[2020-05-27] MEDS: SENNA 8.6 MG TABLET PO SCH ×2 (08:41→20:14)
[2020-05-27] MEDS: PANTOPRAZOLE 40 MG VIAL IV SCH ×2 (08:41→20:14)
[2020-05-27] MEDS: ASPIRIN CHEW 81 MG TABLET PO SCH (08:41)
[2020-05-27] MEDS: ASCORBIC ACID 500 MG TABLET PO SCH ×2 (08:41→20:15)
[2020-05-27] MEDS: DEXAMETHASONE 4 MG/1 ML VIAL IV SCH (08:41)
[2020-05-27] MEDS: clonazePAM 0.5 MG TABLET PO SCH ×2 (08:41→20:12)
[2020-05-27] MEDS: GABAPENTIN 50 MG/ML 30 ML/BOTTLE PO SCH ×3 (08:50→20:30)
[2020-05-27] MEDS: DESITIN 4OZ/NYSTATIN 15 GRAM MIXTURE PASTE TOP SCH ×2 (09:00→20:15)
[2020-05-27] MEDS: ZINC OXIDE PASTE 113 GM TUBE TOP SCH ×2 (10:09→20:12)
[2020-05-27] MEDS: MORPHINE 4 MG/1 ML VIAL IV PRN ×2 (10:17→14:44)
[2020-05-27 11:27] LABS: ABG Base Excess 2.8 MMOL/L (-2.5-2.5); ABG HCO3 26.9 MMOL/L (20-26); ABG PCO2 49.6 MM HG (35-48); ABG PH 7.371 (7.35-7.45); ABG TCO2 26.3 MMOL/L (23-27); Pt O2 Delivery Device BIPAP
[2020-05-27] MEDS: FLUCONAZOLE INJ 100 MG in IV BAG 1 EACH IV SCH (13:20)
[2020-05-27] MEDS: traMADol 50 MG TABLET PO PRN ×2 (13:20→20:17)
[2020-05-27] MEDS: METOPROLOL TARTRATE 25 MG TABLET PER TUBE SCH ×2 (14:57→21:37)
[2020-05-27] MEDS: QUEtiapine 25 MG TABLET PO SCH (16:14)
[2020-05-27] MEDS: ATORVASTATIN 20 MG TABLET PO SCH (20:12)
[2020-05-27] MEDS: SERTRALINE 100 MG TABLET PO SCH (20:15)
[2020-05-27] MEDS: QUEtiapine 25 MG TABLET PO PRN (20:16)
[2020-05-28] MEDS: INSULIN REGULAR 100 UNIT/ML SUBCUT SCH ×4 (00:46→17:52)
[2020-05-28] MEDS: ALBUTEROL/IPRATROPIUM 3 ML NEB RESP TX SCH ×4 (01:18→19:31)
[2020-05-28 03:29] LABS: Allen Test Positive; Pt O2 Delivery Device BIPAP
[2020-05-28 03:30] LABS: ABG Base Excess 6.1 MMOL/L (-2.5-2.5); ABG HCO3 29.9 MMOL/L (20-26); ABG Oxygen Saturation 97.2 % (95-100); ABG PCO2 46.7 MM HG (35-48); ABG PH 7.432 (7.35-7.45); ABG PO2 88.6 MM HG (80-95); ABG TCO2 28.7 MMOL/L (23-27)
[2020-05-28 03:50] LABS: Basophils % 0.1 % (0.0-0.8); Eosinophils # 0.2 10*3/uL (0.0-0.87); Eosinophils % 2.1 % (0.00-10.9); Hematocrit 28.6 VOL% (35.7-47.0); Hemoglobin 8.8 GM/DL (12.0-16.0); Immature Granulocytes Absolute 0.17 #; Lymphocytes # 1.9 10*3/uL (1.4-4.0); Lymphocytes % 21.9 % (21.3-54.2); Mean Corpuscular HGB Conc 30.8 GM/DL (32-36); Mean Corpuscular Volume 94.4 FL (87-102); Mean Platelet Volume 9.4 FL (9.6-12.0); Monocytes % 6.9 % (1.7-12.7); Platelet Count 225 T/CUMM (130-400); Red Blood Count 3.03 MC/CUMM (3.8-5.5); Red Cell Distribution Width 16.3 % (9.3-17.3); White Blood Count 8.6 T/CUMM (4-12)
[2020-05-28 04:38] LABS: Albumin 2.7 G/DL (3.4-5.0); Calcium 8.8 MG/DL (8.5-10.1); Osmolality,Calculated 278.4 MOS/KG (273-304); Total Protein 5.8 G/DL (6.4-8.3)
[2020-05-28] MEDS: traMADol 50 MG TABLET PO PRN (04:44)
[2020-05-28] MEDS: VANCOMYCIN INJ 1,000 MG in SODIUM CHLORIDE 0.9% 250 ML IV SCH ×2 (06:13→17:52)
[2020-05-28] MEDS: PANTOPRAZOLE 40 MG VIAL IV SCH ×2 (08:22→20:08)
[2020-05-28] MEDS: ZINC SULFATE 220 MG CAPSULE PO SCH (08:23)
[2020-05-28] MEDS: clonazePAM 0.5 MG TABLET PO SCH ×2 (08:23→20:07)
[2020-05-28] MEDS: ASCORBIC ACID 500 MG TABLET PO SCH ×2 (08:23→20:08)
[2020-05-28] MEDS: DEXAMETHASONE 4 MG/1 ML VIAL IV SCH (08:23)
[2020-05-28] MEDS: ASPIRIN CHEW 81 MG TABLET PO SCH (08:23)
[2020-05-28] MEDS: CETIRIZINE 10 MG TABLET PO SCH (08:24)
[2020-05-28] MEDS: CHOLECALCIFEROL 5,000 UNIT TABLET PO SCH (08:24)
[2020-05-28] MEDS: METOPROLOL TARTRATE 25 MG TABLET PER TUBE SCH ×2 (08:24→20:08)
[2020-05-28] MEDS: GABAPENTIN 50 MG/ML 30 ML/BOTTLE PO SCH ×3 (08:29→20:08)
[2020-05-28] MEDS: ZINC OXIDE PASTE 113 GM TUBE TOP SCH ×2 (08:30→20:07)
[2020-05-28] MEDS: DESITIN 4OZ/NYSTATIN 15 GRAM MIXTURE PASTE TOP SCH ×2 (08:30→20:08)
[2020-05-28] MEDS: SENNA 8.6 MG TABLET PO SCH ×2 (08:30→20:08)
[2020-05-28] MEDS ORDERED: traMADol 50 MG TABLET PO ONE (09:48)
[2020-05-28] MEDS ORDERED: lisinopriL 20 MG TABLET PO SCH (11:30)
[2020-05-28] MEDS: DEXMEDETOMIDINE 400 MCG in SODIUM CHLORIDE 0.9% 96 ML IV PRN (11:31)
[2020-05-28] MEDS: FLUCONAZOLE INJ 100 MG in IV BAG 1 EACH IV SCH (12:21)
[2020-05-28] MEDS: QUEtiapine 25 MG TABLET PO SCH (17:38)
[2020-05-28] MEDS: ATORVASTATIN 20 MG TABLET PO SCH (20:08)
[2020-05-28] MEDS: SERTRALINE 100 MG TABLET PO SCH (20:08)
[2020-05-28] MEDS: PHENYLEPHRINE DRIP 40 MG/250 ML PREMIX IV PRN (21:33)
[2020-05-29] MEDS: ALBUTEROL/IPRATROPIUM 3 ML NEB RESP TX SCH ×4 (00:35→19:00)
[2020-05-29] MEDS: INSULIN REGULAR 100 UNIT/ML SUBCUT SCH ×4 (01:30→18:22)
[2020-05-29 04:32] LABS: ABG Base Excess 4.8 MMOL/L (-2.5-2.5); ABG HCO3 29.2 MMOL/L (20-26); ABG Oxygen Saturation 97.7 % (95-100); ABG PCO2 42.4 MM HG (35-48); ABG PH 7.456 (7.35-7.45); ABG PO2 109.5 MM HG (80-95); ABG TCO2 30.5 MMOL/L (23-27); Allen Test Positive; Pt O2 Delivery Device Other
[2020-05-29 05:40] LABS: Basophils % 0.2 % (0.0-0.8); Eosinophils # 0.1 10*3/uL (0.0-0.87); Eosinophils % 0.8 % (0.00-10.9); Hematocrit 31.3 VOL% (35.7-47.0); Hemoglobin 9.5 GM/DL (12.0-16.0); Immature Granulocytes % 2.3 %; Immature Granulocytes Absolute 0.29 #; Lymphocytes # 2.3 10*3/uL (1.4-4.0); Mean Corpuscular HGB Conc 30.4 GM/DL (32-36); Mean Corpuscular Volume 94.3 FL (87-102); Mean Platelet Volume 9.3 FL (9.6-12.0); Monocytes % 7.6 % (1.7-12.7); Neutrophils % 71.1 % (38.7-73.9); Platelet Count 311 T/CUMM (130-400); Red Blood Count 3.32 MC/CUMM (3.8-5.5); Red Cell Distribution Width 16.3 % (9.3-17.3); White Blood Count 12.6 T/CUMM (4-12)
[2020-05-29 05:58] LABS: Calcium 9.1 MG/DL (8.5-10.1); Osmolality,Calculated 285.3 MOS/KG (273-304)
[2020-05-29] MEDS: VANCOMYCIN INJ 1,000 MG in SODIUM CHLORIDE 0.9% 250 ML IV SCH ×2 (06:15→17:20)
[2020-05-29] MEDS: CETIRIZINE 10 MG TABLET PO SCH (08:08)
[2020-05-29] MEDS: ZINC SULFATE 220 MG CAPSULE PO SCH (08:08)
[2020-05-29] MEDS: ASPIRIN CHEW 81 MG TABLET PO SCH (08:08)
[2020-05-29] MEDS: POTASSIUM CHLORIDE 20 MEQ/15 ML UDCUP PER TUBE PRN (08:08)
[2020-05-29] MEDS: PANTOPRAZOLE 40 MG VIAL IV SCH ×2 (08:09→20:13)
[2020-05-29] MEDS: CHOLECALCIFEROL 5,000 UNIT TABLET PO SCH (08:13)
[2020-05-29] MEDS: clonazePAM 0.5 MG TABLET PO SCH ×2 (08:13→20:12)
[2020-05-29] MEDS: METOPROLOL TARTRATE 25 MG TABLET PER TUBE SCH (08:13)
[2020-05-29] MEDS: ACETAMINOPHEN 325 MG TABLET PO PRN (08:14)
[2020-05-29] MEDS: SENNA 8.6 MG TABLET PO SCH ×2 (08:19→20:14)
[2020-05-29] MEDS: QUEtiapine 25 MG TABLET PO SCH ×3 (08:39→20:13)
[2020-05-29] MEDS: DEXAMETHASONE 4 MG/1 ML VIAL IV SCH (08:40)
[2020-05-29] MEDS: ASCORBIC ACID 500 MG TABLET PO SCH ×2 (08:40→20:13)
[2020-05-29] MEDS: DESITIN 4OZ/NYSTATIN 15 GRAM MIXTURE PASTE TOP SCH ×2 (08:41→20:14)
[2020-05-29] MEDS: ZINC OXIDE PASTE 113 GM TUBE TOP SCH ×2 (08:41→20:14)
[2020-05-29] MEDS: GABAPENTIN 50 MG/ML 30 ML/BOTTLE PO SCH ×3 (10:56→20:12)
[2020-05-29] MEDS: FLUCONAZOLE INJ 100 MG in IV BAG 1 EACH IV SCH (12:03)
[2020-05-29] MEDS: traMADol 50 MG TABLET PO PRN (20:13)
[2020-05-29] MEDS: ATORVASTATIN 20 MG TABLET PO SCH (20:13)
[2020-05-29] MEDS: SERTRALINE 100 MG TABLET PO SCH (20:13)
[2020-05-29] MEDS: PHENYLEPHRINE DRIP 40 MG/250 ML PREMIX IV PRN (20:14)
[2020-05-29] MEDS: DEXMEDETOMIDINE 400 MCG in SODIUM CHLORIDE 0.9% 96 ML IV PRN (21:55)
[2020-05-30] MEDS: INSULIN REGULAR 100 UNIT/ML SUBCUT SCH ×4 (00:44→17:33)
[2020-05-30] MEDS: ALBUTEROL/IPRATROPIUM 3 ML NEB RESP TX SCH ×4 (00:54→19:09)
[2020-05-30 05:04] LABS: ABG Base Excess 3.9 MMOL/L (-2.5-2.5); ABG HCO3 28.4 MMOL/L (20-26); ABG Oxygen Saturation 98.5 % (95-100); ABG PCO2 42.5 MM HG (35-48); ABG PH 7.443 (7.35-7.45); ABG PO2 134.7 MM HG (80-95); ABG TCO2 29.7 MMOL/L (23-27); Allen Test Positive; Pt O2 Delivery Device Other
[2020-05-30 05:32] LABS: Basophils % 0.3 % (0.0-0.8); Eosinophils # 0.2 10*3/uL (0.0-0.87); Eosinophils % 1.7 % (0.00-10.9); Hemoglobin 8.4 GM/DL (12.0-16.0); Immature Granulocytes % 1.5 %; Immature Granulocytes Absolute 0.17 #; Lymphocytes # 2.1 10*3/uL (1.4-4.0); Lymphocytes % 18.7 % (21.3-54.2); Mean Corpuscular Volume 99.7 FL (87-102); Mean Platelet Volume 9.7 FL (9.6-12.0); Monocytes % 5.9 % (1.7-12.7); Neutrophils % 71.9 % (38.7-73.9); Platelet Count 299 T/CUMM (130-400); Red Blood Count 2.91 MC/CUMM (3.8-5.5); Red Cell Distribution Width 16.5 % (9.3-17.3); White Blood Count 11.5 T/CUMM (4-12)
[2020-05-30 05:55] LABS: Calcium 8.7 MG/DL (8.5-10.1); Osmolality,Calculated 286.1 MOS/KG (273-304)
[2020-05-30] MEDS: VANCOMYCIN INJ 1,000 MG in SODIUM CHLORIDE 0.9% 250 ML IV SCH ×2 (06:01→18:16)
[2020-05-30] MEDS: ASCORBIC ACID 500 MG TABLET PO SCH ×2 (08:15→20:08)
[2020-05-30] MEDS: CHOLECALCIFEROL 5,000 UNIT TABLET PO SCH (08:15)
[2020-05-30] MEDS: POTASSIUM CHLORIDE 20 MEQ/15 ML UDCUP PER TUBE PRN ×4 (08:15→15:58)
[2020-05-30] MEDS: clonazePAM 0.5 MG TABLET PO SCH ×3 (08:16→20:08)
[2020-05-30] MEDS: CETIRIZINE 10 MG TABLET PO SCH (08:16)
[2020-05-30] MEDS: ZINC SULFATE 220 MG CAPSULE PO SCH (08:16)
[2020-05-30] MEDS: QUEtiapine 25 MG TABLET PO SCH ×3 (08:16→20:08)
[2020-05-30] MEDS: ASPIRIN CHEW 81 MG TABLET PO SCH (08:16)
[2020-05-30] MEDS: GABAPENTIN 50 MG/ML 30 ML/BOTTLE PO SCH ×4 (08:17→20:08)
[2020-05-30] MEDS: DEXAMETHASONE 4 MG/1 ML VIAL IV SCH (08:18)
[2020-05-30] MEDS: PANTOPRAZOLE 40 MG VIAL IV SCH ×2 (08:18→20:08)
[2020-05-30] MEDS: ZINC OXIDE PASTE 113 GM TUBE TOP SCH ×2 (08:31→20:08)
[2020-05-30] MEDS: SENNA 8.6 MG TABLET PO SCH ×2 (08:31→20:08)
[2020-05-30] MEDS: DESITIN 4OZ/NYSTATIN 15 GRAM MIXTURE PASTE TOP SCH ×2 (08:32→20:09)
[2020-05-30] MEDS ORDERED: QUEtiapine 25 MG TABLET PO ONE (11:28)
[2020-05-30] MEDS: FLUCONAZOLE INJ 100 MG in IV BAG 1 EACH IV SCH (12:00)
[2020-05-30] MEDS: ATORVASTATIN 20 MG TABLET PO SCH (20:08)
[2020-05-30] MEDS: SERTRALINE 100 MG TABLET PO SCH (20:08)
[2020-05-31] MEDS: ALBUTEROL/IPRATROPIUM 3 ML NEB RESP TX SCH ×4 (00:22→19:44)
[2020-05-31] MEDS: traMADol 50 MG TABLET PO PRN ×3 (00:49→22:41)
[2020-05-31] MEDS: INSULIN REGULAR 100 UNIT/ML SUBCUT SCH ×4 (01:05→18:10)
[2020-05-31 04:49] LABS: ABG Base Excess 2.2 MMOL/L (-2.5-2.5); ABG HCO3 25.2 MMOL/L (20-26); ABG Oxygen Saturation 97.4 % (95-100); ABG PCO2 33.4 MM HG (35-48); ABG PH 7.495 (7.35-7.45); ABG PO2 98.1 MM HG (80-95); ABG TCO2 26.2 MMOL/L (23-27); Allen Test Positive; Pt O2 Delivery Device Other
[2020-05-31 06:18] LABS: Calcium 9.4 MG/DL (8.5-10.1); Osmolality,Calculated 278.7 MOS/KG (273-304)
[2020-05-31 06:21] LABS: Basophils % 0.3 % (0.0-0.8); Eosinophils # 0.2 10*3/uL (0.0-0.87); Eosinophils % 1.1 % (0.00-10.9); Hematocrit 32.8 VOL% (35.7-47.0); Hemoglobin 10.3 GM/DL (12.0-16.0); Immature Granulocytes % 1.3 %; Immature Granulocytes Absolute 0.21 #; Lymphocytes % 12.5 % (21.3-54.2); Mean Corpuscular HGB Conc 31.4 GM/DL (32-36); Mean Corpuscular Volume 93.4 FL (87-102); Mean Platelet Volume 10.1 FL (9.6-12.0); Neutrophils % 77.8 % (38.7-73.9); Platelet Count 317 T/CUMM (130-400); Red Blood Count 3.51 MC/CUMM (3.8-5.5); Red Cell Distribution Width 16.4 % (9.3-17.3); White Blood Count 15.9 T/CUMM (4-12)
[2020-05-31 06:23] LABS: Prealbumin 21.3 MG/DL (20-40)
[2020-05-31] MEDS: VANCOMYCIN INJ 1,000 MG in SODIUM CHLORIDE 0.9% 250 ML IV SCH (06:27)
[2020-05-31] MEDS: QUEtiapine 25 MG TABLET PO SCH ×2 (10:00→22:40)
[2020-05-31] MEDS: CETIRIZINE 10 MG TABLET PO SCH (10:00)
[2020-05-31] MEDS: ASPIRIN CHEW 81 MG TABLET PO SCH (10:00)
[2020-05-31] MEDS: clonazePAM 0.5 MG TABLET PO SCH ×2 (10:00→22:41)
[2020-05-31] MEDS: SENNA 8.6 MG TABLET PO SCH ×2 (10:08→22:41)
[2020-05-31] MEDS: DESITIN 4OZ/NYSTATIN 15 GRAM MIXTURE PASTE TOP SCH ×2 (10:08→22:41)
[2020-05-31] MEDS: ZINC OXIDE PASTE 113 GM TUBE TOP SCH ×2 (10:08→22:42)
[2020-05-31] MEDS: PANTOPRAZOLE 40 MG VIAL IV SCH (10:09)
[2020-05-31] MEDS: ZINC SULFATE 220 MG CAPSULE PO SCH (10:09)
[2020-05-31] MEDS: ASCORBIC ACID 500 MG TABLET PO SCH (10:09)
[2020-05-31] MEDS: DEXAMETHASONE 4 MG/1 ML VIAL IV SCH (10:33)
[2020-05-31] MEDS: CHOLECALCIFEROL 5,000 UNIT TABLET PO SCH (10:34)
[2020-05-31] MEDS: GABAPENTIN 50 MG/ML 30 ML/BOTTLE PO SCH ×2 (10:38→22:43)
[2020-05-31] MEDS ORDERED: clonazePAM 0.5 MG TABLET PO ONE (16:00)
[2020-05-31] MEDS: TROLAMINE SALICYLATE 10% CREAM 85 GM TUBE TOP PRN (18:26)
[2020-05-31] MEDS: SERTRALINE 100 MG TABLET PO SCH (22:40)
[2020-05-31] MEDS: ATORVASTATIN 20 MG TABLET PO SCH (22:40)
[2020-06-01] MEDS: VANCOMYCIN INJ 1,000 MG in SODIUM CHLORIDE 0.9% 250 ML IV SCH ×2 (01:06→17:40)
[2020-06-01] MEDS: ALBUTEROL/IPRATROPIUM 3 ML NEB RESP TX SCH ×4 (01:47→20:15)
[2020-06-01] MEDS: INSULIN REGULAR 100 UNIT/ML SUBCUT SCH ×4 (03:07→17:39)
[2020-06-01 03:58] LABS: ABG Base Excess 5.5 MMOL/L (-2.5-2.5); ABG HCO3 29.3 MMOL/L (20-26); ABG Oxygen Saturation 88.9 % (95-100); ABG PCO2 43.5 MM HG (35-48); ABG PH 7.449 (7.35-7.45); ABG TCO2 27.7 MMOL/L (23-27); Allen Test Positive; Pt O2 Delivery Device BIPAP
[2020-06-01 05:52] LABS: Basophils % 0.3 % (0.0-0.8); Eosinophils # 0.2 10*3/uL (0.0-0.87); Eosinophils % 1.7 % (0.00-10.9); Hematocrit 31.7 VOL% (35.7-47.0); Hemoglobin 9.9 GM/DL (12.0-16.0); Immature Granulocytes % 1.2 %; Immature Granulocytes Absolute 0.13 #; Lymphocytes # 1.7 10*3/uL (1.4-4.0); Mean Corpuscular HGB Conc 31.2 GM/DL (32-36); Mean Corpuscular Volume 93.8 FL (87-102); Mean Platelet Volume 10.1 FL (9.6-12.0); Monocytes % 6.5 % (1.7-12.7); Neutrophils % 74.3 % (38.7-73.9); Platelet Count 270 T/CUMM (130-400); Red Blood Count 3.38 MC/CUMM (3.8-5.5); Red Cell Distribution Width 16.6 % (9.3-17.3); White Blood Count 10.5 T/CUMM (4-12)
[2020-06-01 06:13] LABS: Calcium 9.3 MG/DL (8.5-10.1); Osmolality,Calculated 279.7 MOS/KG (273-304)
[2020-06-01] MEDS: SENNA 8.6 MG TABLET PO SCH ×2 (08:44→20:51)
[2020-06-01] MEDS: CHOLECALCIFEROL 5,000 UNIT TABLET PO SCH (08:44)
[2020-06-01] MEDS: ASPIRIN CHEW 81 MG TABLET PO SCH (08:44)
[2020-06-01] MEDS: DESITIN 4OZ/NYSTATIN 15 GRAM MIXTURE PASTE TOP SCH ×2 (08:45→20:53)
[2020-06-01] MEDS: DEXAMETHASONE 4 MG/1 ML VIAL IV SCH (08:45)
[2020-06-01] MEDS: QUEtiapine 25 MG TABLET PO SCH ×2 (08:45→20:52)
[2020-06-01] MEDS: ZINC OXIDE PASTE 113 GM TUBE TOP SCH ×2 (08:45→20:53)
[2020-06-01] MEDS: GABAPENTIN 50 MG/ML 30 ML/BOTTLE PO SCH ×2 (08:45→20:52)
[2020-06-01] MEDS: clonazePAM 0.5 MG TABLET PO SCH ×2 (08:45→20:52)
[2020-06-01] MEDS: CETIRIZINE 10 MG TABLET PO SCH (08:46)
[2020-06-01] MEDS ORDERED: LORazepam 2 MG/1 ML VIAL IV PRN (10:50)
[2020-06-01 10:56] LABS: ABG Base Excess 3.9 MMOL/L (-2.5-2.5); ABG Oxygen Saturation 97.8 % (95-100); ABG PCO2 42.4 MM HG (35-48); ABG PH 7.436 (7.35-7.45); ABG PO2 97.5 MM HG (80-95); ABG TCO2 26.1 MMOL/L (23-27)
[2020-06-01] MEDS: ATORVASTATIN 20 MG TABLET PO SCH (20:51)
[2020-06-01] MEDS: SERTRALINE 100 MG TABLET PO SCH (20:52)
[2020-06-01] MEDS: traMADol 50 MG TABLET PO PRN (20:52)
[2020-06-02] MEDS: INSULIN REGULAR 100 UNIT/ML SUBCUT SCH ×4 (00:01→19:07)
[2020-06-02] MEDS: ALBUTEROL/IPRATROPIUM 3 ML NEB RESP TX SCH ×4 (07:22→19:30)
[2020-06-02] MEDS: DEXAMETHASONE 4 MG/1 ML VIAL IV SCH (08:34)
[2020-06-02] MEDS: ASPIRIN CHEW 81 MG TABLET PO SCH (08:34)
[2020-06-02] MEDS: clonazePAM 0.5 MG TABLET PO SCH ×3 (08:34→21:03)
[2020-06-02] MEDS: SENNA 8.6 MG TABLET PO SCH ×3 (08:35→21:03)
[2020-06-02] MEDS: CHOLECALCIFEROL 5,000 UNIT TABLET PO SCH (08:37)
[2020-06-02] MEDS: DESITIN 4OZ/NYSTATIN 15 GRAM MIXTURE PASTE TOP SCH ×2 (08:38→21:01)
[2020-06-02] MEDS: CETIRIZINE 10 MG TABLET PO SCH (08:38)
[2020-06-02] MEDS: ZINC OXIDE PASTE 113 GM TUBE TOP SCH ×2 (08:38→21:02)
[2020-06-02] MEDS: QUEtiapine 25 MG TABLET PO SCH ×2 (08:38→21:03)
[2020-06-02 09:15] LABS: ABG Base Excess 7.6 MMOL/L (-2.5-2.5); ABG HCO3 31.4 MMOL/L (20-26); ABG Oxygen Saturation 97.3 % (95-100); ABG PCO2 40.9 MM HG (35-48); ABG PH 7.495 (7.35-7.45); ABG PO2 86.9 MM HG (80-95); ABG TCO2 28.6 MMOL/L (23-27)
[2020-06-02] MEDS: VANCOMYCIN INJ 1,000 MG in SODIUM CHLORIDE 0.9% 250 ML IV SCH (12:57)
[2020-06-02] MEDS: GABAPENTIN 50 MG/ML 30 ML/BOTTLE PO SCH ×2 (14:39→21:07)
[2020-06-02] MEDS: traMADol 50 MG TABLET PO PRN (16:59)
[2020-06-02] MEDS: TROLAMINE SALICYLATE 10% CREAM 85 GM TUBE TOP PRN (17:06)
[2020-06-02] MEDS: ATORVASTATIN 20 MG TABLET PO SCH (21:03)
[2020-06-02] MEDS: SERTRALINE 100 MG TABLET PO SCH (21:03)
[2020-06-02] MEDS: APIXABAN 2.5 MG TABLET PO SCH (21:03)
[2020-06-03] MEDS: ALBUTEROL/IPRATROPIUM 3 ML NEB RESP TX SCH ×4 (00:49→19:18)
[2020-06-03 04:44] LABS: ABG Base Excess 6.8 MMOL/L (-2.5-2.5); ABG HCO3 30.7 MMOL/L (20-26); ABG Oxygen Saturation 99.1 % (95-100); ABG PCO2 47.8 MM HG (35-48); ABG PH 7.435 (7.35-7.45); ABG TCO2 29.1 MMOL/L (23-27); Allen Test Positive
[2020-06-03] MEDS: INSULIN REGULAR 100 UNIT/ML SUBCUT SCH ×5 (05:37→21:51)
[2020-06-03 05:45] LABS: Basophils # 0.1 10*3/uL (0.0-0.2); Basophils % 0.5 % (0.0-0.8); Eosinophils # 0.2 10*3/uL (0.0-0.87); Hematocrit 33.7 VOL% (35.7-47.0); Hemoglobin 10.2 GM/DL (12.0-16.0); Immature Granulocytes % 1.5 %; Immature Granulocytes Absolute 0.17 #; Lymphocytes # 1.9 10*3/uL (1.4-4.0); Lymphocytes % 17.3 % (21.3-54.2); Mean Corpuscular HGB Conc 30.3 GM/DL (32-36); Mean Corpuscular Volume 94.1 FL (87-102); Mean Platelet Volume 10.1 FL (9.6-12.0); Monocytes % 8.3 % (1.7-12.7); Neutrophils % 70.4 % (38.7-73.9); Platelet Count 254 T/CUMM (130-400); Red Blood Count 3.58 MC/CUMM (3.8-5.5); White Blood Count 11.1 T/CUMM (4-12)
[2020-06-03 05:51] LABS: Bilirubin,Total 0.9 MG/DL (0.2-1.0); Calcium 9.3 MG/DL (8.5-10.1); Osmolality,Calculated 279.4 MOS/KG (273-304); Total Protein 6.3 G/DL (6.4-8.3)
[2020-06-03] MEDS: clonazePAM 0.5 MG TABLET PO SCH ×2 (09:33→21:50)
[2020-06-03] MEDS: CHOLECALCIFEROL 5,000 UNIT TABLET PO SCH (09:33)
[2020-06-03] MEDS: ASPIRIN CHEW 81 MG TABLET PO SCH (09:33)
[2020-06-03] MEDS: GABAPENTIN 50 MG/ML 30 ML/BOTTLE PO SCH ×2 (09:33→21:51)
[2020-06-03] MEDS: DEXAMETHASONE 4 MG/1 ML VIAL IV SCH (09:34)
[2020-06-03] MEDS: QUEtiapine 25 MG TABLET PO SCH ×2 (09:34→21:50)
[2020-06-03] MEDS: SENNA 8.6 MG TABLET PO SCH ×2 (09:34→21:50)
[2020-06-03] MEDS: APIXABAN 2.5 MG TABLET PO SCH ×2 (09:34→21:50)
[2020-06-03] MEDS: DESITIN 4OZ/NYSTATIN 15 GRAM MIXTURE PASTE TOP SCH ×2 (09:35→21:51)
[2020-06-03] MEDS: ZINC OXIDE PASTE 113 GM TUBE TOP SCH ×2 (09:36→21:51)
[2020-06-03] MEDS: CETIRIZINE 10 MG TABLET PO SCH (10:31)
[2020-06-03] MEDS: traMADol 50 MG TABLET PO PRN (15:08)
[2020-06-03] MEDS: ATORVASTATIN 20 MG TABLET PO SCH (21:50)
[2020-06-03] MEDS: SERTRALINE 100 MG TABLET PO SCH (21:51)
[2020-06-04] MEDS: ALBUTEROL/IPRATROPIUM 3 ML NEB RESP TX SCH ×2 (00:45→07:35)
[2020-06-04 05:03] LABS: Allen Test Positive
[2020-06-04 05:07] LABS: ABG Base Excess 7.5 MMOL/L (-2.5-2.5); ABG HCO3 31.2 MMOL/L (20-26); ABG Oxygen Saturation 96.5 % (95-100); ABG PCO2 50.5 MM HG (35-48); ABG PH 7.424 (7.35-7.45); ABG PO2 86.9 MM HG (80-95); ABG TCO2 30.2 MMOL/L (23-27)
[2020-06-04 06:44] LABS: Basophils % 0.4 % (0.0-0.8); Eosinophils # 0.1 10*3/uL (0.0-0.87); Eosinophils % 1.5 % (0.00-10.9); Hematocrit 33.1 VOL% (35.7-47.0); Immature Granulocytes % 1.6 %; Immature Granulocytes Absolute 0.13 #; Lymphocytes # 1.4 10*3/uL (1.4-4.0); Lymphocytes % 17.5 % (21.3-54.2); Mean Corpuscular HGB Conc 30.2 GM/DL (32-36); Mean Corpuscular Volume 94.6 FL (87-102); Platelet Count 237 T/CUMM (130-400); Red Cell Distribution Width 16.8 % (9.3-17.3); White Blood Count 8.2 T/CUMM (4-12)
[2020-06-04 07:05] LABS: Albumin 3.3 G/DL (3.4-5.0); Calcium 9.8 MG/DL (8.5-10.1); Total Protein 6.7 G/DL (6.4-8.3)
[2020-06-04] MEDS: INSULIN REGULAR 100 UNIT/ML SUBCUT SCH ×2 (09:17→12:35)
[2020-06-04] MEDS: CHOLECALCIFEROL 5,000 UNIT TABLET PO SCH (09:23)
[2020-06-04] MEDS: clonazePAM 0.5 MG TABLET PO SCH (09:25)
[2020-06-04] MEDS: CETIRIZINE 10 MG TABLET PO SCH (09:25)
[2020-06-04] MEDS: QUEtiapine 25 MG TABLET PO SCH (09:25)
[2020-06-04] MEDS: SENNA 8.6 MG TABLET PO SCH (09:25)
[2020-06-04] MEDS: APIXABAN 2.5 MG TABLET PO SCH (09:25)
[2020-06-04] MEDS: ASPIRIN CHEW 81 MG TABLET PO SCH (09:25)
[2020-06-04] MEDS: DEXAMETHASONE 4 MG/1 ML VIAL IV SCH (09:26)
[2020-06-04] MEDS: DESITIN 4OZ/NYSTATIN 15 GRAM MIXTURE PASTE TOP SCH (09:26)
[2020-06-04] MEDS: GABAPENTIN 50 MG/ML 30 ML/BOTTLE PO SCH (09:52)
[2020-06-04] MEDS: ZINC OXIDE PASTE 113 GM TUBE TOP SCH (10:06)
[2020-06-04 12:11] VITALS: BP 97/51
== END 2020-06-04 14:52 | disposition home or self-care (01) | DRG 207 ==
LOC: EDUNIT# → EDBD → N.ED 21:33 → N.EDINP 04-11 00:37 → SUATTDRO 04-11 00:37 → N.2E 04-11 15:18 → N.CC 04-13 21:58 → N.5E 05-30 22:38
PROVIDERS: ADMIT Hospitalist; ATTEND Internal Medicine

== ENCOUNTER 2020-07-09 12:09 | Inpatient (IN) ==
[2020-07-09 13:02] LABS: Basophils % 0.1 % (0.0-0.8); Eosinophils % 0.2 % (0.00-10.9); Hematocrit 32.6 VOL% (35.7-47.0); Hemoglobin 10.4 GM/DL (12.0-16.0); Immature Granulocytes % 3.2 %; Immature Granulocytes Absolute 0.68 #; Lymphocytes # 1.3 10*3/uL (1.4-4.0); Mean Corpuscular HGB Conc 31.9 GM/DL (32-36); Mean Corpuscular Volume 93.7 FL (87-102); Mean Platelet Volume 8.8 FL (9.6-12.0); Neutrophils % 87.5 % (38.7-73.9); Platelet Count 299 T/CUMM (130-400); Red Blood Count 3.48 MC/CUMM (3.8-5.5); Red Cell Distribution Width 16.3 % (9.3-17.3); White Blood Count 21.1 T/CUMM (4-12)
[2020-07-09 13:16] LABS: ABG Base Excess 7.4 MMOL/L (-2.5-2.5); ABG HCO3 31.2 MMOL/L (20-26); ABG Oxygen Saturation 97.5 % (95-100); ABG PCO2 48.6 MM HG (35-48); ABG PH 7.437 (7.35-7.45); ABG PO2 88.9 MM HG (80-95); ABG TCO2 29.7 MMOL/L (23-27); Allen Test Positive; Pt O2 Delivery Device Other
[2020-07-09 13:16] LABS: PT Patient Result 10.7 SECS (9.8-11.9)
[2020-07-09] MEDS ORDERED: cefTRIAXone 1,000 MG in SODIUM CHLORIDE 0.9% 100 ML IV STA (13:31)
[2020-07-09 13:36] LABS: Albumin 3.4 G/DL (3.4-5.0); Bilirubin,Total 0.5 MG/DL (0.2-1.0); Calcium 9.3 MG/DL (8.5-10.1); Osmolality,Calculated 279.7 MOS/KG (273-304); Total Protein 6.3 G/DL (6.4-8.3)
[2020-07-09] MEDS ORDERED: hydrALAZINE 20 MG/1 ML VIAL IV PRN (15:59)
[2020-07-09] MEDS ORDERED: DOCUSATE SODIUM 100 MG CAPSULE PO PRN (15:59)
[2020-07-09] MEDS ORDERED: CALCIUM CARBONATE CHEW 500 MG TABLET PO PRN (15:59)
[2020-07-09] MEDS ORDERED: DEXTROSE 50% 25 GM/50 ML VIAL IV PRN (15:59)
[2020-07-09] MEDS ORDERED: ONDANSETRON 4 MG/2 ML VIAL IV PRN (15:59)
[2020-07-09] MEDS ORDERED: GLUCAGON 1 MG VIAL IM PRN (15:59)
[2020-07-09 16:06] LABS: Lymphocytes 4 % (20-55); Polychromasia Few; Segmented Neutrophils 95 % (50-85); Total Cells Counted 100
[2020-07-09 16:07] LABS: Macrocytosis Slight; Platelet Estimate Adequate
[2020-07-09] MEDS: clonazePAM 0.5 MG TABLET PO SCH ×2 (19:45→23:51)
[2020-07-09] MEDS: ACETAMINOPHEN 325 MG TABLET PO PRN (19:45)
[2020-07-09] MEDS: MONTELUKAST 10 MG TABLET PO SCH (23:58)
[2020-07-09] MEDS: APIXABAN 2.5 MG TABLET PO SCH (23:58)
[2020-07-09] MEDS: DEXAMETHASONE 4 MG TABLET PO SCH (23:58)
[2020-07-09] MEDS: SERTRALINE 100 MG TABLET PO SCH (23:58)
[2020-07-09] MEDS: METOPROLOL TARTRATE 25 MG TABLET PO SCH (23:58)
[2020-07-10] MEDS: ACETAMINOPHEN 325 MG TABLET PO PRN ×3 (00:18→15:13)
[2020-07-10] MEDS: SODIUM CHLORIDE 0.9% 1,000 ML IV SCH ×4 (00:58→18:11)
[2020-07-10] MEDS: AZITHROMYCIN INJ 500 MG in SODIUM CHLORIDE 0.9% 250 ML IV SCH ×2 (01:54→19:38)
[2020-07-10 02:03] LABS: ABG Base Excess 4.1 MMOL/L (-2.5-2.5); ABG HCO3 28.1 MMOL/L (20-26); ABG PCO2 45.1 MM HG (35-48); ABG PH 7.418 (7.35-7.45); ABG TCO2 26.5 MMOL/L (23-27); Allen Test Positive; Pt O2 Delivery Device Other
[2020-07-10] MEDS ORDERED: LORazepam 2 MG/1 ML VIAL IV PRN (03:20)
[2020-07-10 06:07] LABS: Basophils % 0.1 % (0.0-0.8); Hematocrit 33.2 VOL% (35.7-47.0); Hemoglobin 10.4 GM/DL (12.0-16.0); Immature Granulocytes % 2.7 %; Immature Granulocytes Absolute 0.58 #; Lymphocytes # 1.3 10*3/uL (1.4-4.0); Lymphocytes % 5.9 % (21.3-54.2); Mean Corpuscular HGB Conc 31.3 GM/DL (32-36); Mean Corpuscular Volume 93.3 FL (87-102); Monocytes % 2.9 % (1.7-12.7); Neutrophils % 88.4 % (38.7-73.9); Platelet Count 345 T/CUMM (130-400); Red Blood Count 3.56 MC/CUMM (3.8-5.5); White Blood Count 21.3 T/CUMM (4-12)
[2020-07-10 06:35] LABS: PT Patient Result 10.8 SECS (9.8-11.9)
[2020-07-10 06:39] LABS: Albumin 3.2 G/DL (3.4-5.0); Bilirubin,Total 0.9 MG/DL (0.2-1.0); Calcium 8.8 MG/DL (8.5-10.1); Ferritin 244.2 ng/ml (8-252); Osmolality,Calculated 282.4 MOS/KG (273-304); Thyroid Stimulating Hormone 0.158 uIU/ml (0.358-3.74); Total Protein 6.6 G/DL (6.4-8.3)
[2020-07-10 07:50] LABS: Sedimentation Rate-Westergren 37 MM/HR (0-30)
[2020-07-10 07:52] LABS: Anisocytosis 1+; Band Neutrophils 2 % (0-10); Hypochromasia Slight; Lymphocytes 3 % (20-55); Macrocytosis 1+; Platelet Estimate Normal; Segmented Neutrophils 92 % (50-85); Total Cells Counted 100
[2020-07-10] MEDS: clonazePAM 0.5 MG TABLET PO SCH ×3 (09:31→23:14)
[2020-07-10] MEDS: APIXABAN 2.5 MG TABLET PO SCH ×2 (09:31→23:14)
[2020-07-10] MEDS: MONTELUKAST 10 MG TABLET PO SCH ×2 (09:31→23:17)
[2020-07-10] MEDS: METOPROLOL TARTRATE 25 MG TABLET PO SCH ×2 (09:32→23:16)
[2020-07-10] MEDS: ATORVASTATIN 20 MG TABLET PO SCH (09:32)
[2020-07-10] MEDS: DEXAMETHASONE 4 MG TABLET PO SCH (09:32)
[2020-07-10] MEDS: CETIRIZINE 10 MG TABLET PO SCH (09:32)
[2020-07-10] MEDS: PANTOPRAZOLE 40 MG TABLET PO SCH (09:32)
[2020-07-10] MEDS: cefTRIAXone 1,000 MG in SYRINGE 1 EACH IV SCH (09:33)
[2020-07-10] MEDS ORDERED: LINACLOTIDE 145 MCG CAPSULE PO PRN (18:09)
[2020-07-10] MEDS: traMADol 50 MG TABLET PO PRN (18:56)
[2020-07-10] MEDS: SERTRALINE 100 MG TABLET PO SCH (23:14)
[2020-07-11] MEDS: traMADol 50 MG TABLET PO PRN ×2 (02:46→17:43)
[2020-07-11 05:45] LABS: Basophils % 0.2 % (0.0-0.8); Eosinophils % 0.1 % (0.00-10.9); Hemoglobin 9.8 GM/DL (12.0-16.0); Immature Granulocytes % 2.4 %; Immature Granulocytes Absolute 0.41 #; Lymphocytes # 1.9 10*3/uL (1.4-4.0); Lymphocytes % 10.9 % (21.3-54.2); Mean Corpuscular HGB Conc 30.6 GM/DL (32-36); Mean Corpuscular Volume 96.4 FL (87-102); Mean Platelet Volume 9.5 FL (9.6-12.0); Monocytes % 7.3 % (1.7-12.7); NRBC # 0.02 10*3/uL; Neutrophils % 79.1 % (38.7-73.9); Platelet Count 263 T/CUMM (130-400); Red Blood Count 3.32 MC/CUMM (3.8-5.5); Red Cell Distribution Width 16.2 % (9.3-17.3); White Blood Count 17.1 T/CUMM (4-12)
[2020-07-11 06:00] LABS: Bilirubin,Total 0.4 MG/DL (0.2-1.0); Calcium 8.6 MG/DL (8.5-10.1); Ferritin 210.1 ng/ml (8-252); Osmolality,Calculated 276.7 MOS/KG (273-304); Total Protein 6.3 G/DL (6.4-8.3)
[2020-07-11 06:21] LABS: PT Patient Result 11.2 SECS (9.8-11.9)
[2020-07-11 07:20] LABS: Sedimentation Rate-Westergren 34 MM/HR (0-30)
[2020-07-11] MEDS: SODIUM CHLORIDE 0.9% 1,000 ML IV SCH (08:35)
[2020-07-11] MEDS: METOPROLOL TARTRATE 25 MG TABLET PO SCH ×2 (09:59→21:45)
[2020-07-11] MEDS: CETIRIZINE 10 MG TABLET PO SCH (09:59)
[2020-07-11] MEDS: APIXABAN 2.5 MG TABLET PO SCH (09:59)
[2020-07-11] MEDS: MONTELUKAST 10 MG TABLET PO SCH ×2 (09:59→21:45)
[2020-07-11] MEDS: DEXAMETHASONE 4 MG TABLET PO SCH (09:59)
[2020-07-11] MEDS: clonazePAM 0.5 MG TABLET PO SCH ×4 (09:59→21:45)
[2020-07-11] MEDS: ATORVASTATIN 20 MG TABLET PO SCH (09:59)
[2020-07-11] MEDS: PANTOPRAZOLE 40 MG TABLET PO SCH (10:00)
[2020-07-11] MEDS: cefTRIAXone 1,000 MG in SYRINGE 1 EACH IV SCH (10:00)
[2020-07-11 10:36] LABS: ABG Base Excess 4.5 MMOL/L (-2.5-2.5); ABG HCO3 28.9 MMOL/L (20-26); ABG Oxygen Saturation 92.8 % (95-100); ABG PCO2 42.5 MM HG (35-48); ABG PH 7.451 (7.35-7.45); ABG PO2 65.7 MM HG (80-95); ABG TCO2 30.2 MMOL/L (23-27); Allen Test Positive; Pt O2 Delivery Device Other
[2020-07-11] MEDS ORDERED: SERTRALINE 100 MG TABLET PO SCH (15:03)
[2020-07-11] MEDS: MULTIVITAMIN (BEROCCA) TABLET PO SCH (15:43)
[2020-07-11] MEDS: AZITHROMYCIN 250 MG TABLET PO SCH (15:59)
[2020-07-11] MEDS ORDERED: HALOPERIDOL 5 MG/ML AMP IV ONE ×2 (19:35→20:02)
[2020-07-11] MEDS ORDERED: HALOPERIDOL 5 MG/ML AMP IV PRN (19:45)
[2020-07-11] MEDS ORDERED: HALOPERIDOL 5 MG/ML AMP IM ONE (20:00)
[2020-07-11] MEDS ORDERED: BISACODYL 5 MG TABLET PO ONE (20:01)
[2020-07-11] MEDS: ACETAMINOPHEN 325 MG TABLET PO PRN (21:44)
[2020-07-11] MEDS: SERTRALINE 100 MG TABLET PO SCH (21:45)
[2020-07-11] MEDS: HALOPERIDOL 5 MG/ML AMP IV PRN (22:26)
[2020-07-11] MEDS ORDERED: LORazepam 2 MG/1 ML VIAL IV ONE (23:37)
[2020-07-12 03:59] LABS: Basophils % 0.1 % (0.0-0.8); Eosinophils % 0.1 % (0.00-10.9); Hematocrit 29.4 VOL% (35.7-47.0); Hemoglobin 9.1 GM/DL (12.0-16.0); Immature Granulocytes % 1.6 %; Immature Granulocytes Absolute 0.24 #; Lymphocytes # 1.8 10*3/uL (1.4-4.0); Lymphocytes % 12.3 % (21.3-54.2); Mean Corpuscular Volume 94.5 FL (87-102); Mean Platelet Volume 8.9 FL (9.6-12.0); Neutrophils % 80.9 % (38.7-73.9); Platelet Count 215 T/CUMM (130-400); Red Blood Count 3.11 MC/CUMM (3.8-5.5); White Blood Count 14.7 T/CUMM (4-12)
[2020-07-12 04:21] LABS: Albumin 2.9 G/DL (3.4-5.0); Bilirubin,Total 0.5 MG/DL (0.2-1.0); Calcium 8.5 MG/DL (8.5-10.1); Total Protein 5.8 G/DL (6.4-8.3)
[2020-07-12 04:37] LABS: ABG Base Excess 4.3 MMOL/L (-2.5-2.5); ABG HCO3 30.6 MMOL/L (20-26); ABG Oxygen Saturation 99.4 % (95-100); ABG PCO2 53.9 MM HG (35-48); ABG PH 7.372 (7.35-7.45); ABG PO2 265.3 MM HG (80-95); ABG TCO2 32.3 MMOL/L (23-27); Allen Test Positive
[2020-07-12] MEDS: SODIUM CHLORIDE 0.9% 1,000 ML IV SCH (07:35)
[2020-07-12] MEDS: HALOPERIDOL 5 MG/ML AMP IV PRN ×2 (08:07→20:40)
[2020-07-12] MEDS: ENOXAPARIN 30 MG/0.3 ML SYRINGE SUBCUT SCH (10:18)
[2020-07-12] MEDS: MULTIVITAMIN (BEROCCA) TABLET PO SCH (10:18)
[2020-07-12] MEDS: POTASSIUM CHLORIDE 20 MEQ TABLET PO SCH ×4 (10:19→20:41)
[2020-07-12] MEDS: METOPROLOL TARTRATE 25 MG TABLET PO SCH ×2 (10:26→20:41)
[2020-07-12] MEDS: PANTOPRAZOLE 40 MG TABLET PO SCH (10:26)
[2020-07-12] MEDS: MONTELUKAST 10 MG TABLET PO SCH ×2 (10:29→20:41)
[2020-07-12] MEDS: CETIRIZINE 10 MG TABLET PO SCH (10:29)
[2020-07-12] MEDS: CHOLECALCIFEROL 1,000 UNIT TABLET PO SCH (10:29)
[2020-07-12] MEDS: ATORVASTATIN 20 MG TABLET PO SCH (10:29)
[2020-07-12] MEDS: cefTRIAXone 1,000 MG in SYRINGE 1 EACH IV SCH (10:49)
[2020-07-12] MEDS: clonazePAM 0.5 MG TABLET PO SCH ×4 (11:03→20:46)
[2020-07-12] MEDS: DEXAMETHASONE 4 MG TABLET PO SCH (11:03)
[2020-07-12] MEDS: GABAPENTIN 100 MG CAPSULE PO SCH ×2 (16:57→20:41)
[2020-07-12] MEDS: AZITHROMYCIN 250 MG TABLET PO SCH (16:57)
[2020-07-12] MEDS: traMADol 50 MG TABLET PO PRN (17:22)
[2020-07-12] MEDS: SERTRALINE 100 MG TABLET PO SCH (20:41)
[2020-07-13] MEDS: POTASSIUM CHLORIDE 20 MEQ TABLET PO SCH (00:18)
[2020-07-13] MEDS: HALOPERIDOL 5 MG/ML AMP IV PRN (00:50)
[2020-07-13 05:10] LABS: Basophils % 0.1 % (0.0-0.8); Eosinophils % 0.4 % (0.00-10.9); Hematocrit 28.7 VOL% (35.7-47.0); Hemoglobin 8.7 GM/DL (12.0-16.0); Immature Granulocytes % 1.2 %; Immature Granulocytes Absolute 0.11 #; Lymphocytes # 1.7 10*3/uL (1.4-4.0); Lymphocytes % 17.6 % (21.3-54.2); Mean Corpuscular HGB Conc 30.3 GM/DL (32-36); Mean Corpuscular Volume 95.7 FL (87-102); Mean Platelet Volume 9.4 FL (9.6-12.0); Monocytes % 5.9 % (1.7-12.7); Neutrophils % 74.8 % (38.7-73.9); Platelet Count 205 T/CUMM (130-400); Red Cell Distribution Width 16.2 % (9.3-17.3); White Blood Count 9.4 T/CUMM (4-12)
[2020-07-13 05:33] LABS: Calcium 9.1 MG/DL (8.5-10.1); Osmolality,Calculated 282.1 MOS/KG (273-304)
[2020-07-13] MEDS ORDERED: QUEtiapine 100 MG TABLET PO SCH (09:00)
[2020-07-13] MEDS: ATORVASTATIN 20 MG TABLET PO SCH (09:26)
[2020-07-13] MEDS: PANTOPRAZOLE 40 MG TABLET PO SCH (09:26)
[2020-07-13] MEDS: GABAPENTIN 100 MG CAPSULE PO SCH ×3 (09:26→20:47)
[2020-07-13] MEDS: MULTIVITAMIN (BEROCCA) TABLET PO SCH (09:26)
[2020-07-13] MEDS: clonazePAM 0.5 MG TABLET PO SCH ×4 (09:26→20:46)
[2020-07-13] MEDS: MONTELUKAST 10 MG TABLET PO SCH ×2 (09:27→20:47)
[2020-07-13] MEDS: ASPIRIN CHEW 81 MG TABLET PO SCH (09:27)
[2020-07-13] MEDS: CHOLECALCIFEROL 1,000 UNIT TABLET PO SCH (09:27)
[2020-07-13] MEDS: METOPROLOL TARTRATE 25 MG TABLET PO SCH ×2 (09:27→20:47)
[2020-07-13] MEDS: DEXAMETHASONE 4 MG TABLET PO SCH (09:27)
[2020-07-13] MEDS: CETIRIZINE 10 MG TABLET PO SCH (09:27)
[2020-07-13] MEDS: ENOXAPARIN 30 MG/0.3 ML SYRINGE SUBCUT SCH (09:28)
[2020-07-13] MEDS: cefTRIAXone 1,000 MG in SYRINGE 1 EACH IV SCH (09:28)
[2020-07-13] MEDS: traMADol 50 MG TABLET PO PRN (10:56)
[2020-07-13] MEDS: AZITHROMYCIN 250 MG TABLET PO SCH (15:45)
[2020-07-13] MEDS: SERTRALINE 100 MG TABLET PO SCH (20:47)
[2020-07-13] MEDS: QUEtiapine 100 MG TABLET PO SCH (20:47)
[2020-07-13] MEDS: HALOPERIDOL 5 MG/ML AMP IM PRN (21:18)
[2020-07-14 02:31] LABS: Basophils % 0.1 % (0.0-0.8); Eosinophils # 0.1 10*3/uL (0.0-0.87); Eosinophils % 0.8 % (0.00-10.9); Hematocrit 28.7 VOL% (35.7-47.0); Immature Granulocytes % 1.1 %; Immature Granulocytes Absolute 0.13 #; Lymphocytes # 2.3 10*3/uL (1.4-4.0); Lymphocytes % 19.8 % (21.3-54.2); Mean Corpuscular HGB Conc 31.4 GM/DL (32-36); Mean Corpuscular Volume 94.1 FL (87-102); Mean Platelet Volume 8.9 FL (9.6-12.0); Monocytes % 5.8 % (1.7-12.7); Neutrophils % 72.4 % (38.7-73.9); Platelet Count 218 T/CUMM (130-400); Red Blood Count 3.05 MC/CUMM (3.8-5.5); Red Cell Distribution Width 16.7 % (9.3-17.3); White Blood Count 11.6 T/CUMM (4-12)
[2020-07-14 02:47] LABS: Calcium 9.1 MG/DL (8.5-10.1); Osmolality,Calculated 281.3 MOS/KG (273-304)
[2020-07-14] MEDS: clonazePAM 0.5 MG TABLET PO SCH ×3 (09:15→20:15)
[2020-07-14] MEDS: QUEtiapine 100 MG TABLET PO SCH ×2 (09:20→20:15)
[2020-07-14] MEDS: ATORVASTATIN 20 MG TABLET PO SCH (09:20)
[2020-07-14] MEDS: PANTOPRAZOLE 40 MG TABLET PO SCH (09:20)
[2020-07-14] MEDS: CHOLECALCIFEROL 1,000 UNIT TABLET PO SCH (09:20)
[2020-07-14] MEDS: ASPIRIN CHEW 81 MG TABLET PO SCH (09:20)
[2020-07-14] MEDS: METOPROLOL TARTRATE 25 MG TABLET PO SCH ×2 (09:20→20:15)
[2020-07-14] MEDS: DEXAMETHASONE 4 MG TABLET PO SCH (09:21)
[2020-07-14] MEDS: MULTIVITAMIN (BEROCCA) TABLET PO SCH (09:21)
[2020-07-14] MEDS: GABAPENTIN 100 MG CAPSULE PO SCH ×3 (09:22→20:16)
[2020-07-14] MEDS: ENOXAPARIN 30 MG/0.3 ML SYRINGE SUBCUT SCH (09:22)
[2020-07-14] MEDS: cefTRIAXone 1,000 MG in SYRINGE 1 EACH IV SCH (09:22)
[2020-07-14] MEDS: CETIRIZINE 10 MG TABLET PO SCH (09:22)
[2020-07-14] MEDS: MONTELUKAST 10 MG TABLET PO SCH ×2 (09:22→20:15)
[2020-07-14] MEDS: traMADol 50 MG TABLET PO PRN ×2 (11:43→20:16)
[2020-07-14] MEDS: AZITHROMYCIN 250 MG TABLET PO SCH (15:15)
[2020-07-14] MEDS: HALOPERIDOL 5 MG/ML AMP IM PRN (19:45)
[2020-07-14] MEDS: SERTRALINE 100 MG TABLET PO SCH (20:15)
[2020-07-15 05:01] LABS: Basophils % 0.1 % (0.0-0.8); Eosinophils % 0.4 % (0.00-10.9); Hematocrit 31.3 VOL% (35.7-47.0); Hemoglobin 9.9 GM/DL (12.0-16.0); Immature Granulocytes % 1.5 %; Immature Granulocytes Absolute 0.15 #; Lymphocytes # 1.7 10*3/uL (1.4-4.0); Lymphocytes % 16.7 % (21.3-54.2); Mean Corpuscular HGB Conc 31.6 GM/DL (32-36); Mean Corpuscular Volume 92.9 FL (87-102); Mean Platelet Volume 9.3 FL (9.6-12.0); Monocytes % 6.7 % (1.7-12.7); Neutrophils % 74.6 % (38.7-73.9); Platelet Count 226 T/CUMM (130-400); Red Blood Count 3.37 MC/CUMM (3.8-5.5); Red Cell Distribution Width 16.5 % (9.3-17.3); White Blood Count 10.1 T/CUMM (4-12)
[2020-07-15 05:50] LABS: Calcium 9.7 MG/DL (8.5-10.1); Osmolality,Calculated 279.4 MOS/KG (273-304)
[2020-07-15] MEDS: ATORVASTATIN 20 MG TABLET PO SCH (08:30)
[2020-07-15] MEDS: CHOLECALCIFEROL 1,000 UNIT TABLET PO SCH (08:31)
[2020-07-15] MEDS: AZITHROMYCIN 250 MG TABLET PO SCH (08:31)
[2020-07-15] MEDS: MULTIVITAMIN (BEROCCA) TABLET PO SCH (08:31)
[2020-07-15] MEDS: ASPIRIN CHEW 81 MG TABLET PO SCH (08:31)
[2020-07-15] MEDS: QUEtiapine 100 MG TABLET PO SCH (08:31)
[2020-07-15] MEDS: METOPROLOL TARTRATE 25 MG TABLET PO SCH (08:31)
[2020-07-15] MEDS: MONTELUKAST 10 MG TABLET PO SCH (08:32)
[2020-07-15] MEDS: GABAPENTIN 100 MG CAPSULE PO SCH (08:32)
[2020-07-15] MEDS: DEXAMETHASONE 4 MG TABLET PO SCH (08:32)
[2020-07-15] MEDS: CETIRIZINE 10 MG TABLET PO SCH (08:32)
[2020-07-15] MEDS: clonazePAM 0.5 MG TABLET PO SCH (08:32)
[2020-07-15 08:53] VITALS: BP 148/73
[2020-07-15] MEDS ORDERED: ENOXAPARIN 40 MG/0.4 ML SYRINGE SUBCUT SCH (09:00)
[2020-07-15] MEDS: traMADol 50 MG TABLET PO PRN (09:50)
== END 2020-07-15 11:29 | disposition home health service (06) | DRG 177 ==
LOC: N.ED 12:09 → N.EDINP 14:47 → SUATTDRO 14:47 → N.EDINP 18:28 → N.TELES 18:48 → N.ICU 07-12 00:25 → N.5E 07-13 13:07
PROVIDERS: ADMIT Family Medicine; ATTEND Internal Medicine Geriatric Medicine

== ENCOUNTER 2020-08-10 23:24 | Inpatient (IN) ==
[2020-08-10] MEDS ORDERED: MORPHINE 4 MG/1 ML VIAL IV ONE (23:28)
[2020-08-10] MEDS ORDERED: ONDANSETRON 4 MG/2 ML VIAL IV ONE (23:28)
[2020-08-11 00:24] LABS: PT Patient Result 10.4 SECS (9.8-11.9)
[2020-08-11 01:12] LABS: Albumin 3.5 G/DL (3.4-5.0); Bilirubin,Total 0.4 MG/DL (0.2-1.0); Calcium 9.3 MG/DL (8.5-10.1); Osmolality,Calculated 284.1 MOS/KG (273-304); Total Protein 6.7 G/DL (6.4-8.3)
[2020-08-11 01:26] LABS: Basophils % 0.2 % (0.0-0.8); Eosinophils % 0.2 % (0.00-10.9); Hematocrit 34.8 VOL% (35.7-47.0); Immature Granulocytes % 4.3 %; Immature Granulocytes Absolute 1.12 #; Lymphocytes # 1.8 10*3/uL (1.4-4.0); Lymphocytes % 6.9 % (21.3-54.2); Mean Corpuscular HGB Conc 31.6 GM/DL (32-36); Mean Corpuscular Volume 94.8 FL (87-102); Mean Platelet Volume 9.1 FL (9.6-12.0); Monocytes % 4.5 % (1.7-12.7); Neutrophils % 83.9 % (38.7-73.9); Platelet Count 319 T/CUMM (130-400); Red Blood Count 3.67 MC/CUMM (3.8-5.5); Red Cell Distribution Width 16.5 % (9.3-17.3); White Blood Count 26.1 T/CUMM (4-12)
[2020-08-11] MEDS ORDERED: DEXTROSE 50% 25 GM/50 ML VIAL IV PRN (01:38)
[2020-08-11] MEDS ORDERED: ONDANSETRON 4 MG/2 ML VIAL IV PRN (01:38)
[2020-08-11] MEDS ORDERED: GLUCAGON 1 MG VIAL IM PRN (01:38)
[2020-08-11] MEDS ORDERED: MORPHINE 4 MG/1 ML VIAL IV ONE (01:46)
[2020-08-11 03:18] LABS: Anisocytosis Slight; Band Neutrophils 5 % (0-10); Lymphocytes 5 % (20-55); Macrocytosis Slight; Metamyelocytes 1 %; Platelet Estimate Normal; Segmented Neutrophils 85 % (50-85); Total Cells Counted 100
[2020-08-11 05:37] LABS: Basophils % 0.1 % (0.0-0.8); Eosinophils # 0.1 10*3/uL (0.0-0.87); Eosinophils % 0.3 % (0.00-10.9); Hematocrit 34.3 VOL% (35.7-47.0); Hemoglobin 10.7 GM/DL (12.0-16.0); Immature Granulocytes % 1.2 %; Immature Granulocytes Absolute 0.25 #; Lymphocytes # 2.4 10*3/uL (1.4-4.0); Lymphocytes % 11.2 % (21.3-54.2); Mean Corpuscular HGB Conc 31.2 GM/DL (32-36); Mean Corpuscular Volume 96.1 FL (87-102); Monocytes % 6.2 % (1.7-12.7); Platelet Count 298 T/CUMM (130-400); Red Blood Count 3.57 MC/CUMM (3.8-5.5); Red Cell Distribution Width 16.5 % (9.3-17.3); White Blood Count 21.2 T/CUMM (4-12)
[2020-08-11 06:02] LABS: Calcium 9.6 MG/DL (8.5-10.1); Osmolality,Calculated 283.1 MOS/KG (273-304)
[2020-08-11] MEDS: SODIUM CHLORIDE 0.45% 1,000 ML IV SCH ×3 (06:16→23:57)
[2020-08-11] MEDS: HYDROmorphone 2 MG/1 ML VIAL IV PRN ×2 (06:25→19:51)
[2020-08-11] MEDS ORDERED: ceFAZolin 1,000 MG in SYRINGE 1 EACH IV ONE (06:33)
[2020-08-11 06:37] LABS: Hypochromasia 1+; Lymphocytes 14 % (20-55); Microcytosis 1+; Platelet Estimate Adequate; Segmented Neutrophils 82 % (50-85); Total Cells Counted 100
[2020-08-11] MEDS ORDERED: propofoL 200 MG/20 ML VIAL IV ONE (07:42)
[2020-08-11] MEDS ORDERED: ETOMIDATE 40 MG/20 ML VIAL IV ONE (07:42)
[2020-08-11] MEDS ORDERED: LIDOCAINE 2% 5 ML VIAL ONE (07:43)
[2020-08-11] MEDS ORDERED: ROCURONIUM 50 MG/5 ML VIAL IV ONE (07:43)
[2020-08-11] MEDS ORDERED: KETAMINE 500 MG/10 ML VIAL ONE (07:45)
[2020-08-11] MEDS ORDERED: fentaNYL 100 MCG/2 ML VIAL ONE (07:45)
[2020-08-11] MEDS ORDERED: DEXAMETHASONE 4 MG TABLET PO SCH (09:00)
[2020-08-11] MEDS ORDERED: GLYCOPYRROLATE 0.4 MG/2 ML VIAL ONE ×2 (09:37→10:10)
[2020-08-11] MEDS ORDERED: BACITRACIN OINT 0.9 GM PACK TOP ONE (09:39)
[2020-08-11] MEDS ORDERED: PHENYLEPHRINE 1 MG/10 ML SYRINGE IV ONE ×2 (09:45)
[2020-08-11] MEDS ORDERED: methylPREDNISolone SOD SUC 125 MG/2 ML VIAL ONE (09:46)
[2020-08-11] MEDS ORDERED: ONDANSETRON 4 MG/2 ML VIAL ONE (09:47)
[2020-08-11] MEDS ORDERED: PHENYLEPHRINE 10 MG/1 ML VIAL IV ONE (09:48)
[2020-08-11] MEDS ORDERED: SODIUM CHLORIDE 0.9% 100 ML IV ONE (10:10)
[2020-08-11] MEDS ORDERED: SODIUM CHLORIDE 0.9% 1,000 ML IV ONE (10:10)
[2020-08-11] MEDS ORDERED: MAGNESIUM HYDROXIDE SUSP 30 ML UDCUP PO PRN (10:23)
[2020-08-11] MEDS ORDERED: SEVOFLURANE 1 UNIT/15 MINUTE INH ONE (10:24)
[2020-08-11] MEDS ORDERED: NEOSTIGMINE 10 MG/10 ML VIAL ONE (10:24)
[2020-08-11 11:22] LABS: ABG HCO3 26.2 MMOL/L (20-26); ABG PCO2 67.9 MM HG (35-48); ABG PH 7.264 (7.35-7.45); ABG TCO2 28.3 MMOL/L (23-27)
[2020-08-11] MEDS: METOPROLOL TARTRATE 25 MG TABLET PO SCH (12:15)
[2020-08-11] MEDS: PANTOPRAZOLE 40 MG TABLET PO SCH (12:43)
[2020-08-11] MEDS: ceFAZolin 1,000 MG in SYRINGE 1 EACH IV SCH ×2 (14:00→22:46)
[2020-08-11 14:04] LABS: Bacteria,Urine Occasional /HPF (Few); Bilirubin,Urine Negative (Negative); Blood, Urine Negative (Negative); Calcium Oxalate Crystals,Urine Occasional /HPF (Few); Glucose,Urine (UA) 50 mg/dL (Negative); Hyaline Casts,Urine 7 /LPF (0-3); Ketones,Urine Negative (Negative); Mucus,Urine Moderate /LPF (Occasional); Nitrite,Urine Negative (Negative); Protein,Urine Negative; Squamous Epithelial Cell,Urine Occasional /HPF (0-10); Urine Appearance CLEAR (Clear); Urine Color Yellow (Yellow); Urine Specific Gravity 1.014 (1.001-1.035); Urine Urobilinogen < 2.0 EU/DL (0.2-1.0)
[2020-08-11] MEDS: methylPREDNISolone SOD SUC 40 MG/1 ML VIAL IV SCH (14:38)
[2020-08-11] MEDS: DOCUSATE SODIUM 100 MG CAPSULE PO SCH (20:46)
[2020-08-11] MEDS: SERTRALINE 100 MG TABLET PO SCH (20:46)
[2020-08-11] MEDS: ATORVASTATIN 20 MG TABLET PO SCH (20:46)
[2020-08-12] MEDS: HYDROmorphone 2 MG/1 ML VIAL IV PRN ×3 (02:43→18:04)
[2020-08-12] MEDS: methylPREDNISolone SOD SUC 40 MG/1 ML VIAL IV SCH ×2 (03:15→15:45)
[2020-08-12 04:39] LABS: ABG Base Excess 4.5 MMOL/L (-2.5-2.5); ABG HCO3 28.5 MMOL/L (20-26); ABG Oxygen Saturation 99.7 % (95-100); ABG PCO2 43.4 MM HG (35-48); ABG PH 7.436 (7.35-7.45); ABG TCO2 27.1 MMOL/L (23-27); Allen Test Positive; Pt O2 Delivery Device Ventilator
[2020-08-12] MEDS: SODIUM CHLORIDE 0.45% 1,000 ML IV SCH (11:28)
[2020-08-12] MEDS ORDERED: clonazePAM 0.5 MG TABLET PO ONE (15:18)
[2020-08-12] MEDS: DOCUSATE SODIUM 100 MG CAPSULE PO SCH ×2 (15:30→20:51)
[2020-08-12] MEDS: APIXABAN 2.5 MG TABLET PO SCH ×2 (15:31→20:51)
[2020-08-12] MEDS: PANTOPRAZOLE 40 MG TABLET PO SCH (15:54)
[2020-08-12] MEDS ORDERED: LORazepam 2 MG/1 ML VIAL IV ONE (19:06)
[2020-08-12 19:21] LABS: ABG Base Excess 0.6 MMOL/L (-2.5-2.5); ABG HCO3 24.9 MMOL/L (20-26); ABG PH 7.219 (7.35-7.45); ABG TCO2 28.1 MMOL/L (23-27)
[2020-08-12 19:22] LABS: ABG PCO2 73.5 MM HG (35-48)
[2020-08-12] MEDS ORDERED: ETOMIDATE 20 MG/10 ML VIAL IV ONE ×2 (19:29→19:48)
[2020-08-12] MEDS ORDERED: ROCURONIUM 100 MG/10 ML VIAL IV ONE ×2 (19:32→19:49)
[2020-08-12] MEDS: SERTRALINE 100 MG TABLET PO SCH (20:51)
[2020-08-12] MEDS: ATORVASTATIN 20 MG TABLET PO SCH (20:51)
[2020-08-12] MEDS: clonazePAM 0.5 MG TABLET PO SCH (20:57)
[2020-08-12 21:09] LABS: ABG Base Excess 4.7 MMOL/L (-2.5-2.5); ABG HCO3 28.7 MMOL/L (20-26); ABG PCO2 43.1 MM HG (35-48); ABG TCO2 27.3 MMOL/L (23-27); Allen Test Positive; Pt O2 Delivery Device Ventilator
[2020-08-12 23:58] LABS: ABG Base Excess 5.5 MMOL/L (-2.5-2.5); ABG HCO3 29.4 MMOL/L (20-26); ABG PCO2 39.3 MM HG (35-48); ABG PH 7.481 (7.35-7.45); ABG TCO2 27.3 MMOL/L (23-27)
[2020-08-13] MEDS: HYDROmorphone 2 MG/1 ML VIAL IV PRN ×5 (00:40→22:15)
[2020-08-13] MEDS: SODIUM CHLORIDE 0.45% 1,000 ML IV SCH ×3 (00:43→21:08)
[2020-08-13 05:08] LABS: ABG Base Excess 4.8 MMOL/L (-2.5-2.5); ABG HCO3 28.8 MMOL/L (20-26); ABG Oxygen Saturation 98.1 % (95-100); ABG PCO2 43.5 MM HG (35-48); ABG PH 7.439 (7.35-7.45); ABG PO2 90.1 MM HG (80-95); ABG TCO2 27.4 MMOL/L (23-27)
[2020-08-13] MEDS: methylPREDNISolone SOD SUC 40 MG/1 ML VIAL IV SCH ×2 (05:24→17:01)
[2020-08-13 07:43] LABS: Calcium 8.3 MG/DL (8.5-10.1); Osmolality,Calculated 281.1 MOS/KG (273-304)
[2020-08-13 08:32] LABS: Basophils % 0.1 % (0.0-0.8); Eosinophils % 0.1 % (0.00-10.9); Hematocrit 25.2 VOL% (35.7-47.0); Immature Granulocytes % 1.1 %; Immature Granulocytes Absolute 0.17 #; Lymphocytes # 1.6 10*3/uL (1.4-4.0); Lymphocytes % 10.3 % (21.3-54.2); Mean Corpuscular Volume 95.8 FL (87-102); Mean Platelet Volume 9.6 FL (9.6-12.0); Monocytes % 6.7 % (1.7-12.7); Neutrophils % 81.7 % (38.7-73.9); Red Cell Distribution Width 16.6 % (9.3-17.3); White Blood Count 15.1 T/CUMM (4-12)
[2020-08-13] MEDS ORDERED: QUEtiapine 25 MG TABLET PO ONE (08:38)
[2020-08-13 08:40] LABS: Red Blood Count 2.63 MC/CUMM (3.8-5.5)
[2020-08-13 08:41] LABS: Hemoglobin 7.8 GM/DL (12.0-16.0); Platelet Count 155 T/CUMM (130-400)
[2020-08-13] MEDS: DEXMEDETOMIDINE 200 MCG in SODIUM CHLORIDE 0.9% 48 ML IV PRN ×3 (09:15→21:09)
[2020-08-13] MEDS: clonazePAM 0.5 MG TABLET PO SCH ×3 (09:24→20:17)
[2020-08-13] MEDS: PANTOPRAZOLE 40 MG TABLET PO SCH (09:24)
[2020-08-13] MEDS: APIXABAN 2.5 MG TABLET PO SCH ×2 (09:24→20:17)
[2020-08-13] MEDS: DOCUSATE SODIUM 100 MG CAPSULE PO SCH ×2 (09:24→20:17)
[2020-08-13] MEDS ORDERED: MAGNESIUM SULF RIDER 4 GM in PREMIX 1 EACH IV ONE (12:07)
[2020-08-13] MEDS ORDERED: INFLUENZA VIRUS VACCINE 0.5 ML SYRINGE IM ONE (12:08)
[2020-08-13] MEDS: POTASSIUM CHLORIDE 20 MEQ/15 ML UDCUP PER TUBE SCH ×3 (13:12→20:17)
[2020-08-13] MEDS ORDERED: SODIUM CHLORIDE 0.9% 1,000 ML IV PRN (15:47)
[2020-08-13] MEDS: SERTRALINE 100 MG TABLET PO SCH (20:17)
[2020-08-13] MEDS: ATORVASTATIN 20 MG TABLET PO SCH (20:17)
[2020-08-14] MEDS: HYDROmorphone 2 MG/1 ML VIAL IV PRN ×4 (02:05→20:10)
[2020-08-14] MEDS: DEXMEDETOMIDINE 200 MCG in SODIUM CHLORIDE 0.9% 48 ML IV PRN ×2 (02:14→07:44)
[2020-08-14 03:11] LABS: ABG Base Excess 1.9 MMOL/L (-2.5-2.5); ABG HCO3 26.1 MMOL/L (20-26); ABG Oxygen Saturation 96.8 % (95-100); ABG PCO2 40.7 MM HG (35-48); ABG PH 7.421 (7.35-7.45); ABG PO2 84.6 MM HG (80-95); Allen Test Positive; Pt O2 Delivery Device Ventilator
[2020-08-14] MEDS ORDERED: SODIUM CHLORIDE 0.9% 500 ML IV ONE (05:30)
[2020-08-14 05:32] LABS: Basophils % 0.1 % (0.0-0.8); Hematocrit 26.9 VOL% (35.7-47.0); Hemoglobin 8.5 GM/DL (12.0-16.0); Immature Granulocytes % 1.3 %; Immature Granulocytes Absolute 0.16 #; Lymphocytes # 0.6 10*3/uL (1.4-4.0); Lymphocytes % 4.7 % (21.3-54.2); Mean Corpuscular HGB Conc 31.6 GM/DL (32-36); Mean Corpuscular Volume 93.7 FL (87-102); Mean Platelet Volume 9.6 FL (9.6-12.0); Monocytes % 5.1 % (1.7-12.7); Neutrophils % 88.8 % (38.7-73.9); Platelet Count 158 T/CUMM (130-400); Red Blood Count 2.87 MC/CUMM (3.8-5.5); Red Cell Distribution Width 16.1 % (9.3-17.3); White Blood Count 12.6 T/CUMM (4-12)
[2020-08-14 05:51] LABS: Band Neutrophils 1 % (0-10); Hypochromasia 1+; Lymphocytes 6 % (20-55); Microcytosis 1+; Platelet Estimate Adequate; Segmented Neutrophils 91 % (50-85); Total Cells Counted 100
[2020-08-14 05:59] LABS: Calcium 7.7 MG/DL (8.5-10.1); Osmolality,Calculated 277.8 MOS/KG (273-304)
[2020-08-14] MEDS: methylPREDNISolone SOD SUC 40 MG/1 ML VIAL IV SCH (06:12)
[2020-08-14] MEDS: APIXABAN 2.5 MG TABLET PO SCH ×2 (08:01→20:10)
[2020-08-14] MEDS: DOCUSATE SODIUM 100 MG CAPSULE PO SCH ×2 (08:01→20:10)
[2020-08-14] MEDS: clonazePAM 0.5 MG TABLET PO SCH ×3 (08:01→20:09)
[2020-08-14] MEDS: PANTOPRAZOLE 40 MG TABLET PO SCH (08:01)
[2020-08-14] MEDS: SODIUM CHLORIDE 0.45% 1,000 ML IV SCH ×2 (08:08→17:30)
[2020-08-14] MEDS: CALCIUM GLUCONATE 1,000 MG in SODIUM CHLORIDE 0.9% 100 ML IV SCH ×2 (10:36→15:18)
[2020-08-14] MEDS: QUEtiapine 25 MG TABLET PO SCH ×2 (10:36→20:09)
[2020-08-14] MEDS: DEXMEDETOMIDINE 400 MCG in SODIUM CHLORIDE 0.9% 96 ML IV PRN ×2 (12:11→22:12)
[2020-08-14] MEDS: ALBUTEROL/IPRATROPIUM 3 ML NEB RESP TX SCH ×2 (14:46→19:40)
[2020-08-14] MEDS: MEROPENEM 500 MG in SODIUM CHLORIDE 0.9% 100 ML IV SCH ×2 (15:17→18:28)
[2020-08-14] MEDS: SERTRALINE 100 MG TABLET PO SCH (20:10)
[2020-08-14] MEDS: ATORVASTATIN 20 MG TABLET PO SCH (20:10)
[2020-08-15] MEDS: ALBUTEROL/IPRATROPIUM 3 ML NEB RESP TX SCH ×4 (00:45→20:06)
[2020-08-15] MEDS: MEROPENEM 500 MG in SODIUM CHLORIDE 0.9% 100 ML IV SCH ×4 (02:00→18:12)
[2020-08-15] MEDS: HYDROmorphone 2 MG/1 ML VIAL IV PRN ×2 (02:00→08:34)
[2020-08-15 03:28] LABS: Allen Test Positive; Pt O2 Delivery Device Ventilator
[2020-08-15 03:30] LABS: ABG Base Excess 1.7 MMOL/L (-2.5-2.5); ABG HCO3 26.3 MMOL/L (20-26); ABG Oxygen Saturation 94.6 % (95-100); ABG PCO2 41.4 MM HG (35-48); ABG PH 7.421 (7.35-7.45); ABG PO2 77.8 MM HG (80-95); ABG TCO2 27.6 MMOL/L (23-27)
[2020-08-15 04:35] LABS: Basophils % 0.1 % (0.0-0.8); Eosinophils # 0.1 10*3/uL (0.0-0.87); Eosinophils % 0.4 % (0.00-10.9); Hematocrit 27.7 VOL% (35.7-47.0); Immature Granulocytes % 1.2 %; Immature Granulocytes Absolute 0.23 #; Lymphocytes # 1.6 10*3/uL (1.4-4.0); Lymphocytes % 8.4 % (21.3-54.2); Mean Corpuscular HGB Conc 32.5 GM/DL (32-36); Mean Corpuscular Volume 94.2 FL (87-102); Mean Platelet Volume 9.8 FL (9.6-12.0); NRBC # 0.02 10*3/uL; Neutrophils % 84.9 % (38.7-73.9); Platelet Count 202 T/CUMM (130-400); Red Blood Count 2.94 MC/CUMM (3.8-5.5); Red Cell Distribution Width 15.9 % (9.3-17.3); White Blood Count 19.1 T/CUMM (4-12)
[2020-08-15 04:49] LABS: Calcium 8.3 MG/DL (8.5-10.1); Osmolality,Calculated 279.4 MOS/KG (273-304)
[2020-08-15] MEDS: SODIUM CHLORIDE 0.45% 1,000 ML IV SCH (06:50)
[2020-08-15] MEDS: DEXMEDETOMIDINE 400 MCG in SODIUM CHLORIDE 0.9% 96 ML IV PRN ×2 (06:50→15:47)
[2020-08-15] MEDS: predniSONE 10 MG TABLET PO SCH (08:19)
[2020-08-15] MEDS: PANTOPRAZOLE 40 MG TABLET PO SCH (08:19)
[2020-08-15] MEDS: clonazePAM 0.5 MG TABLET PO SCH ×3 (08:19→20:39)
[2020-08-15] MEDS: APIXABAN 2.5 MG TABLET PO SCH ×2 (08:19→20:39)
[2020-08-15] MEDS: QUEtiapine 25 MG TABLET PO SCH ×2 (08:19→20:40)
[2020-08-15] MEDS: DOCUSATE SODIUM 100 MG CAPSULE PO SCH ×2 (08:19→20:41)
[2020-08-15] MEDS ORDERED: FUROSEMIDE 40 MG/4 ML VIAL IV ONE (08:43)
[2020-08-15] MEDS: MAGNESIUM HYDROXIDE SUSP 30 ML UDCUP PO SCH (20:39)
[2020-08-15] MEDS: ATORVASTATIN 20 MG TABLET PO SCH (20:39)
[2020-08-15] MEDS: SERTRALINE 100 MG TABLET PO SCH (20:41)
[2020-08-16] MEDS: MEROPENEM 500 MG in SODIUM CHLORIDE 0.9% 100 ML IV SCH ×4 (01:30→18:37)
[2020-08-16] MEDS: ALBUTEROL/IPRATROPIUM 3 ML NEB RESP TX SCH ×5 (01:32→19:29)
[2020-08-16] MEDS: HYDROmorphone 2 MG/1 ML VIAL IV PRN (01:50)
[2020-08-16] MEDS: DEXMEDETOMIDINE 400 MCG in SODIUM CHLORIDE 0.9% 96 ML IV PRN (01:50)
[2020-08-16 03:14] LABS: ABG Base Excess 9.6 MMOL/L (-2.5-2.5); ABG HCO3 33.3 MMOL/L (20-26); ABG Oxygen Saturation 95.2 % (95-100); ABG PCO2 48.2 MM HG (35-48); ABG PH 7.465 (7.35-7.45); ABG PO2 73.4 MM HG (80-95); ABG TCO2 31.3 MMOL/L (23-27); Allen Test Positive; Pt O2 Delivery Device Ventilator
[2020-08-16 04:35] LABS: Basophils % 0.1 % (0.0-0.8); Eosinophils # 0.2 10*3/uL (0.0-0.87); Eosinophils % 1.2 % (0.00-10.9); Hematocrit 24.3 VOL% (35.7-47.0); Hemoglobin 7.7 GM/DL (12.0-16.0); Immature Granulocytes % 0.6 %; Immature Granulocytes Absolute 0.07 #; Lymphocytes # 1.1 10*3/uL (1.4-4.0); Lymphocytes % 8.6 % (21.3-54.2); Mean Corpuscular HGB Conc 31.7 GM/DL (32-36); Mean Corpuscular Volume 93.5 FL (87-102); Mean Platelet Volume 9.7 FL (9.6-12.0); Monocytes % 5.4 % (1.7-12.7); Neutrophils % 84.1 % (38.7-73.9); Platelet Count 182 T/CUMM (130-400); White Blood Count 12.2 T/CUMM (4-12)
[2020-08-16 04:51] LABS: Calcium 8.1 MG/DL (8.5-10.1); Osmolality,Calculated 283.3 MOS/KG (273-304)
[2020-08-16] MEDS: APIXABAN 2.5 MG TABLET PO SCH ×2 (10:18→20:16)
[2020-08-16] MEDS: DOCUSATE SODIUM 100 MG/10 ML UDCUP NG SCH ×2 (10:18→20:16)
[2020-08-16] MEDS: clonazePAM 0.5 MG TABLET PO SCH ×3 (10:18→20:17)
[2020-08-16] MEDS: QUEtiapine 25 MG TABLET PO SCH ×2 (10:19→20:17)
[2020-08-16] MEDS: predniSONE 10 MG TABLET PO SCH (10:19)
[2020-08-16] MEDS: FUROSEMIDE 40 MG/4 ML VIAL IV SCH (10:19)
[2020-08-16] MEDS: MAGNESIUM HYDROXIDE SUSP 30 ML UDCUP PO SCH ×2 (10:19→20:16)
[2020-08-16] MEDS: PANTOPRAZOLE 40 MG VIAL IV SCH (10:19)
[2020-08-16] MEDS: methylPREDNISolone SOD SUC 40 MG/1 ML VIAL IV SCH (16:38)
[2020-08-16] MEDS: INSULIN REGULAR 100 UNIT/ML SUBCUT SCH (18:36)
[2020-08-16] MEDS: ATORVASTATIN 20 MG TABLET PO SCH (20:17)
[2020-08-16] MEDS: SERTRALINE 100 MG TABLET PO SCH (20:17)
[2020-08-17] MEDS: INSULIN REGULAR 100 UNIT/ML SUBCUT SCH ×4 (00:23→17:45)
[2020-08-17] MEDS: ALBUTEROL/IPRATROPIUM 3 ML NEB RESP TX SCH ×4 (01:34→19:29)
[2020-08-17] MEDS: MEROPENEM 500 MG in SODIUM CHLORIDE 0.9% 100 ML IV SCH ×4 (02:00→18:03)
[2020-08-17] MEDS: methylPREDNISolone SOD SUC 40 MG/1 ML VIAL IV SCH ×2 (04:05→15:08)
[2020-08-17 04:31] LABS: ABG Base Excess 12.7 MMOL/L (-2.5-2.5); ABG HCO3 37.5 MMOL/L (20-26); ABG Oxygen Saturation 98.6 % (95-100); ABG PCO2 50.3 MM HG (35-48); ABG PO2 144.4 MM HG (80-95); Allen Test Positive; Pt O2 Delivery Device Ventilator
[2020-08-17 04:38] LABS: Hemoglobin 8.4 GM/DL (12.0-16.0); Immature Granulocytes % 1.3 %; Immature Granulocytes Absolute 0.11 #; Lymphocytes # 0.5 10*3/uL (1.4-4.0); Lymphocytes % 5.2 % (21.3-54.2); Mean Corpuscular HGB Conc 31.1 GM/DL (32-36); Mean Corpuscular Volume 95.1 FL (87-102); Mean Platelet Volume 9.7 FL (9.6-12.0); Monocytes % 3.4 % (1.7-12.7); Neutrophils % 90.1 % (38.7-73.9); Platelet Count 223 T/CUMM (130-400); Red Blood Count 2.84 MC/CUMM (3.8-5.5); Red Cell Distribution Width 15.8 % (9.3-17.3); White Blood Count 8.7 T/CUMM (4-12)
[2020-08-17 04:54] LABS: Calcium 8.3 MG/DL (8.5-10.1); Osmolality,Calculated 293.1 MOS/KG (273-304)
[2020-08-17] MEDS: QUEtiapine 25 MG TABLET PO SCH ×2 (08:02→21:35)
[2020-08-17] MEDS: APIXABAN 2.5 MG TABLET PO SCH ×2 (08:02→21:40)
[2020-08-17] MEDS: PANTOPRAZOLE 40 MG VIAL IV SCH (08:08)
[2020-08-17] MEDS: FUROSEMIDE 40 MG/4 ML VIAL IV SCH (08:10)
[2020-08-17] MEDS: clonazePAM 0.5 MG TABLET PO SCH ×3 (08:16→21:39)
[2020-08-17] MEDS: DOCUSATE SODIUM 100 MG/10 ML UDCUP NG SCH ×2 (08:17→21:41)
[2020-08-17] MEDS: HYDROmorphone 2 MG/1 ML VIAL IV PRN (12:03)
[2020-08-17] MEDS: GABAPENTIN 300 MG CAPSULE PO SCH ×2 (15:07→21:35)
[2020-08-17] MEDS: SERTRALINE 100 MG TABLET PO SCH (21:39)
[2020-08-17] MEDS: ATORVASTATIN 20 MG TABLET PO SCH (21:39)
[2020-08-17] MEDS: MONTELUKAST 10 MG TABLET PO SCH (21:40)
[2020-08-18] MEDS: INSULIN REGULAR 100 UNIT/ML SUBCUT SCH ×4 (00:25→18:54)
[2020-08-18] MEDS: ALBUTEROL/IPRATROPIUM 3 ML NEB RESP TX SCH ×4 (00:56→20:10)
[2020-08-18] MEDS: MEROPENEM 500 MG in SODIUM CHLORIDE 0.9% 100 ML IV SCH ×4 (01:42→18:00)
[2020-08-18 04:21] LABS: ABG Base Excess 15.5 MMOL/L (-2.5-2.5); ABG HCO3 39.5 MMOL/L (20-26); ABG Oxygen Saturation 99.9 % (95-100); ABG PCO2 51.6 MM HG (35-48); ABG PH 7.506 (7.35-7.45); ABG TCO2 37.9 MMOL/L (23-27); Allen Test Positive; Pt O2 Delivery Device Ventilator
[2020-08-18 04:58] LABS: Eosinophils % 0.1 % (0.00-10.9); Hematocrit 24.3 VOL% (35.7-47.0); Hemoglobin 7.8 GM/DL (12.0-16.0); Immature Granulocytes % 1.2 %; Immature Granulocytes Absolute 0.14 #; Lymphocytes # 1.1 10*3/uL (1.4-4.0); Lymphocytes % 9.4 % (21.3-54.2); Mean Corpuscular HGB Conc 32.1 GM/DL (32-36); Mean Corpuscular Volume 93.5 FL (87-102); Mean Platelet Volume 9.6 FL (9.6-12.0); Monocytes % 5.9 % (1.7-12.7); NRBC # 0.02 10*3/uL; Neutrophils % 83.4 % (38.7-73.9); Platelet Count 295 T/CUMM (130-400); Red Cell Distribution Width 15.6 % (9.3-17.3); White Blood Count 11.5 T/CUMM (4-12)
[2020-08-18 05:20] LABS: Alanine Aminotransferase 16 U/L (13-56); Albumin 2.1 G/DL (3.4-5.0); Alkaline Phosphatase 82 U/L (45-117); Aspartate Amino Transferase 11 U/L (0-37); Bilirubin,Total < 0.39 MG/DL (0.2-1.0); Blood Urea Nitrogen 26 MG/DL (7-18); Calcium 8.8 MG/DL (8.5-10.1); Estimated Glom Filtration Rate 99 ML/MIN; Glucose 209 MG/DL (74-106); Osmolality,Calculated 291.3 MOS/KG (273-304); Total Protein 5.3 G/DL (6.4-8.3)
[2020-08-18] MEDS: methylPREDNISolone SOD SUC 40 MG/1 ML VIAL IV SCH ×2 (06:12→16:47)
[2020-08-18] MEDS: APIXABAN 2.5 MG TABLET PO SCH ×2 (08:02→23:28)
[2020-08-18] MEDS: PANTOPRAZOLE 40 MG VIAL IV SCH (08:03)
[2020-08-18] MEDS: QUEtiapine 25 MG TABLET PO SCH ×2 (08:03→23:28)
[2020-08-18] MEDS: MONTELUKAST 10 MG TABLET PO SCH ×2 (08:03→23:28)
[2020-08-18] MEDS: GABAPENTIN 300 MG CAPSULE PO SCH ×3 (08:03→23:24)
[2020-08-18] MEDS: DOCUSATE SODIUM 100 MG/10 ML UDCUP NG SCH ×2 (08:03→23:28)
[2020-08-18] MEDS: FUROSEMIDE 40 MG/4 ML VIAL IV SCH (08:05)
[2020-08-18] MEDS: clonazePAM 0.5 MG TABLET PO SCH ×3 (08:29→23:29)
[2020-08-18] MEDS: ASPIRIN CHEW 81 MG TABLET PO SCH (08:29)
[2020-08-18] MEDS: VANCOMYCIN INJ 1,000 MG in SODIUM CHLORIDE 0.9% 250 ML IV SCH (12:58)
[2020-08-18] MEDS: SERTRALINE 100 MG TABLET PO SCH (23:25)
[2020-08-18] MEDS: ATORVASTATIN 20 MG TABLET PO SCH (23:25)
[2020-08-19] MEDS: VANCOMYCIN INJ 1,000 MG in SODIUM CHLORIDE 0.9% 250 ML IV SCH ×2 (00:25→12:35)
[2020-08-19] MEDS: INSULIN REGULAR 100 UNIT/ML SUBCUT SCH ×4 (00:25→18:45)
[2020-08-19] MEDS: MEROPENEM 500 MG in SODIUM CHLORIDE 0.9% 100 ML IV SCH ×4 (01:42→18:03)
[2020-08-19] MEDS: ALBUTEROL/IPRATROPIUM 3 ML NEB RESP TX SCH ×5 (02:00→19:36)
[2020-08-19 04:27] LABS: Basophils % 0.1 % (0.0-0.8); Eosinophils % 0.1 % (0.00-10.9); Hematocrit 26.8 VOL% (35.7-47.0); Hemoglobin 8.3 GM/DL (12.0-16.0); Immature Granulocytes Absolute 0.49 #; Lymphocytes # 1.3 10*3/uL (1.4-4.0); Lymphocytes % 10.4 % (21.3-54.2); Mean Corpuscular Volume 95.4 FL (87-102); Mean Platelet Volume 9.6 FL (9.6-12.0); Monocytes % 6.8 % (1.7-12.7); NRBC # 0.02 10*3/uL; Neutrophils % 78.6 % (38.7-73.9); Platelet Count 338 T/CUMM (130-400); Red Blood Count 2.81 MC/CUMM (3.8-5.5); Red Cell Distribution Width 15.3 % (9.3-17.3); White Blood Count 12.4 T/CUMM (4-12)
[2020-08-19 04:33] LABS: ABG Base Excess 10.1 MMOL/L (-2.5-2.5); ABG HCO3 33.9 MMOL/L (20-26); ABG Oxygen Saturation 99.9 % (95-100); ABG PCO2 49.3 MM HG (35-48); ABG PH 7.463 (7.35-7.45); ABG TCO2 32.6 MMOL/L (23-27)
[2020-08-19 04:51] LABS: Osmolality,Calculated 286.4 MOS/KG (273-304)
[2020-08-19] MEDS: methylPREDNISolone SOD SUC 40 MG/1 ML VIAL IV SCH ×2 (06:16→17:58)
[2020-08-19] MEDS: GABAPENTIN 300 MG CAPSULE PO SCH ×3 (08:33→21:16)
[2020-08-19] MEDS: DOCUSATE SODIUM 100 MG/10 ML UDCUP NG SCH ×2 (08:33→21:16)
[2020-08-19] MEDS: ASPIRIN CHEW 81 MG TABLET PO SCH (08:34)
[2020-08-19] MEDS: APIXABAN 2.5 MG TABLET PO SCH ×2 (08:34→21:17)
[2020-08-19] MEDS: QUEtiapine 25 MG TABLET PO SCH ×2 (08:34→21:16)
[2020-08-19] MEDS: clonazePAM 0.5 MG TABLET PO SCH ×3 (08:34→21:16)
[2020-08-19] MEDS: MONTELUKAST 10 MG TABLET PO SCH ×2 (08:34→21:16)
[2020-08-19] MEDS: PANTOPRAZOLE 40 MG VIAL IV SCH (08:34)
[2020-08-19] MEDS ORDERED: METOPROLOL TARTRATE 25 MG TABLET PO ONE (14:45)
[2020-08-19] MEDS ORDERED: BISACODYL 5 MG TABLET PO PRN (15:05)
[2020-08-19] MEDS: cloNIDine 0.1 MG TABLET PO PRN (19:38)
[2020-08-19] MEDS: SERTRALINE 100 MG TABLET PO SCH (21:16)
[2020-08-19] MEDS: METOPROLOL TARTRATE 25 MG TABLET PO SCH (21:16)
[2020-08-19] MEDS: ATORVASTATIN 20 MG TABLET PO SCH (21:20)
[2020-08-20] MEDS: INSULIN REGULAR 100 UNIT/ML SUBCUT SCH ×4 (00:20→17:45)
[2020-08-20] MEDS: VANCOMYCIN INJ 1,000 MG in SODIUM CHLORIDE 0.9% 250 ML IV SCH ×3 (00:20→23:04)
[2020-08-20] MEDS: MEROPENEM 500 MG in SODIUM CHLORIDE 0.9% 100 ML IV SCH ×2 (00:24→06:48)
[2020-08-20] MEDS: ALBUTEROL/IPRATROPIUM 3 ML NEB RESP TX SCH ×4 (01:09→19:15)
[2020-08-20] MEDS: methylPREDNISolone SOD SUC 40 MG/1 ML VIAL IV SCH (04:55)
[2020-08-20 08:20] LABS: Basophils # 0.1 10*3/uL (0.0-0.2); Basophils % 0.3 % (0.0-0.8); Eosinophils % 0.1 % (0.00-10.9); Hematocrit 32.5 VOL% (35.7-47.0); Hemoglobin 9.9 GM/DL (12.0-16.0); Immature Granulocytes % 7.1 %; Immature Granulocytes Absolute 1.46 #; Mean Corpuscular HGB Conc 30.5 GM/DL (32-36); Mean Corpuscular Volume 95.6 FL (87-102); Mean Platelet Volume 9.2 FL (9.6-12.0); Monocytes % 4.7 % (1.7-12.7); NRBC # 0.03 10*3/uL; Neutrophils % 82.8 % (38.7-73.9); Red Cell Distribution Width 15.8 % (9.3-17.3)
[2020-08-20 08:30] LABS: Platelet Count 516 T/CUMM (130-400); White Blood Count 20.6 T/CUMM (4-12)
[2020-08-20 08:33] LABS: Calcium 8.9 MG/DL (8.5-10.1); Osmolality,Calculated 299.6 MOS/KG (273-304)
[2020-08-20] MEDS: QUEtiapine 25 MG TABLET PO SCH ×2 (08:36→20:59)
[2020-08-20] MEDS: ASPIRIN CHEW 81 MG TABLET PO SCH (08:36)
[2020-08-20] MEDS: METOPROLOL TARTRATE 25 MG TABLET PO SCH ×2 (08:36→21:00)
[2020-08-20] MEDS: GABAPENTIN 300 MG CAPSULE PO SCH (08:36)
[2020-08-20] MEDS: APIXABAN 2.5 MG TABLET PO SCH ×2 (08:37→21:00)
[2020-08-20] MEDS: MONTELUKAST 10 MG TABLET PO SCH ×2 (08:37→21:00)
[2020-08-20] MEDS: DOCUSATE SODIUM 100 MG/10 ML UDCUP NG SCH ×2 (08:37→20:58)
[2020-08-20] MEDS: PANTOPRAZOLE 40 MG VIAL IV SCH (08:38)
[2020-08-20 08:49] LABS: Band Neutrophils 2 % (0-10); Eosinophils 1 % (0-10); Hypochromasia 2+; Lymphocytes 6 % (20-55); Segmented Neutrophils 89 % (50-85); Total Cells Counted 100
[2020-08-20 08:50] LABS: Anisocytosis 1+; Platelet Estimate Increased
[2020-08-20] MEDS: clonazePAM 0.5 MG TABLET PO SCH ×4 (09:00→20:58)
[2020-08-20] MEDS ORDERED: AZITHROMYCIN INJ 500 MG in SODIUM CHLORIDE 0.9% 250 ML IV SCH (09:30)
[2020-08-20] MEDS: cefTRIAXone 1,000 MG in SYRINGE 1 EACH IV SCH (12:19)
[2020-08-20] MEDS: AZITHROMYCIN 40 MG/ML 15 ML/BOTTLE PO SCH (12:22)
[2020-08-20] MEDS ORDERED: hydrALAZINE 20 MG/1 ML VIAL IV PRN (14:50)
[2020-08-20] MEDS: cloNIDine 0.1 MG TABLET PO PRN (17:53)
[2020-08-20] MEDS: acetaZOLAMIDE 250 MG TABLET PO SCH (20:58)
[2020-08-20] MEDS: ATORVASTATIN 20 MG TABLET PO SCH (20:59)
[2020-08-21] MEDS: INSULIN REGULAR 100 UNIT/ML SUBCUT SCH ×4 (00:14→20:04)
[2020-08-21] MEDS: ALBUTEROL/IPRATROPIUM 3 ML NEB RESP TX SCH ×3 (01:55→13:00)
[2020-08-21 06:24] LABS: Basophils # 0.1 10*3/uL (0.0-0.2); Basophils % 0.3 % (0.0-0.8); Eosinophils # 0.5 10*3/uL (0.0-0.87); Eosinophils % 1.9 % (0.00-10.9); Hematocrit 33.2 VOL% (35.7-47.0); Hemoglobin 10.1 GM/DL (12.0-16.0); Immature Granulocytes Absolute 1.42 #; Lymphocytes % 8.3 % (21.3-54.2); Mean Corpuscular HGB Conc 30.4 GM/DL (32-36); Mean Corpuscular Volume 96.2 FL (87-102); Mean Platelet Volume 9.6 FL (9.6-12.0); Monocytes % 7.4 % (1.7-12.7); NRBC # 0.03 10*3/uL; Neutrophils % 76.1 % (38.7-73.9); Platelet Count 562 T/CUMM (130-400); Red Blood Count 3.45 MC/CUMM (3.8-5.5); White Blood Count 23.7 T/CUMM (4-12)
[2020-08-21 06:32] LABS: Calcium 9.3 MG/DL (8.5-10.1); Osmolality,Calculated 300.7 MOS/KG (273-304)
[2020-08-21 07:56] LABS: Band Neutrophils 1 % (0-10); Eosinophils 1 % (0-10); Lymphocytes 4 % (20-55); Segmented Neutrophils 82 % (50-85); Total Cells Counted 100
[2020-08-21 07:57] LABS: Hypochromasia 1+; Platelet Estimate Increased; Polychromasia Slight
[2020-08-21] MEDS: acetaZOLAMIDE 250 MG TABLET PO SCH (08:09)
[2020-08-21] MEDS: clonazePAM 0.5 MG TABLET PO SCH ×2 (08:09→13:46)
[2020-08-21] MEDS: DOCUSATE SODIUM 100 MG/10 ML UDCUP NG SCH (08:09)
[2020-08-21] MEDS: APIXABAN 2.5 MG TABLET PO SCH (08:10)
[2020-08-21] MEDS: MONTELUKAST 10 MG TABLET PO SCH (08:10)
[2020-08-21] MEDS: ASPIRIN CHEW 81 MG TABLET PO SCH (08:10)
[2020-08-21] MEDS: QUEtiapine 25 MG TABLET PO SCH (08:10)
[2020-08-21] MEDS: METOPROLOL TARTRATE 25 MG TABLET PO SCH (08:10)
[2020-08-21] MEDS: PANTOPRAZOLE 40 MG VIAL IV SCH (08:10)
[2020-08-21] MEDS ORDERED: DONEPEZIL 5 MG TABLET PO SCH (09:00)
[2020-08-21] MEDS ORDERED: predniSONE 20 MG TABLET PO SCH (09:00)
[2020-08-21] MEDS: AZITHROMYCIN 40 MG/ML 15 ML/BOTTLE PO SCH (10:48)
[2020-08-21] MEDS: VANCOMYCIN INJ 1,000 MG in SODIUM CHLORIDE 0.9% 250 ML IV SCH (10:48)
[2020-08-21] MEDS ORDERED: MORPHINE 4 MG/1 ML VIAL IV ONE (11:02)
[2020-08-21] MEDS: cefTRIAXone 1,000 MG in SYRINGE 1 EACH IV SCH (11:29)
[2020-08-21 15:26] VITALS: BP 191/94
[2020-08-21] MEDS ORDERED: SODIUM BICARBONATE 50 MEQ/50 ML SYRINGE IV ONE (17:14)
[2020-08-21] MEDS ORDERED: EPINEPHrine 1 MG/10 ML SYRINGE ONE (17:14)
== END 2020-08-21 17:27 | disposition expired | DRG 480 ==
LOC: N.EDINP 23:24 → N.ED 23:24 → SUATTDRO 08-11 01:38 → N.ICU 08-11 08:24 → SUATTDRO 08-11 13:20 → N.3E 08-20 18:12
PROVIDERS: ADMIT Internal Medicine; ATTEND Internal Medicine